=== PATIENT | female | born 1975 | race Caucasian/White ===

== ENCOUNTER 2021-12-29 12:24 | Outpatient (REF) | payer OTHER, SELFPAY ==
[2021-12-29 15:43] LABS: MANUAL DIFF FLAG NO
[2021-12-29 16:07] LABS: Basophils Percent Auto 0.4 % (0-2); Eosinophils Absolute Auto 0.1 X10*3/uL (0.0-0.4); Eosinophils Percent Auto 1.3 % (0-4); Hematocrit 37.2 % (37.0-47.0); Hemoglobin 12.4 g/dl (12.0-16.0); Imm Gran Abs Auto 0.01 X10*3/uL (0.00-0.03); Imm Gran Pct Auto 0.1 % (0.0-0.4); Lymphocytes Absolute Auto 1.7 X10*3/uL (1.2-4.9); Lymphocytes Percent Auto 23.7 % (20-40); Mean Corpuscular HGB Conc 33.3 g/dl (31.0-35.0); Mean Corpuscular Hemoglobin 30.8 pg (27.0-33.0); Mean Corpuscular Volume 92.5 fL (80.0-98.0); Monocytes Absolute Auto 0.8 X10*3/uL (0.1-1.2); Monocytes Percent Auto 11.3 % (2-11); Neutrophils Absolute Auto 4.5 x10*3/uL (2.0-8.3); Neutrophils Percent Auto 63.2 % (45-73); Platelet Count 325 X10*3/uL (160-400); Red Blood Count 4.02 X10*6/uL (4.20-5.50); Red Cell Distribution Width 12.4 % (11.0-16.0); White Blood Count 7.2 X10*3/uL (4.8-10.8)
[2021-12-29 16:51] LABS: Alanine Aminotransferase 17 U/L (0-31); Albumin Level 4.5 g/dL (3.5-5.0); Alkaline Phosphatase 63 U/L (39-117); Anion Gap 15 (12-20); Aspartate Amino Transferase 21 U/L (5-31); Bilirubin Total 0.3 mg/dL (0.0-1.0); Blood Urea Nitrogen 13 mg/dL (9-16); Calcium 9.4 mg/dL (8.4-10.2); Carbon Dioxide 25 mmol/L (22-29); Chloride 102 mmol/L (96-108); Estimated Glomerular Filt Rate > 60; Glucose Random 88 mg/dL (60-115); Potassium 4.1 mmol/L (3.3-5.1); Sodium 138 mmol/L (135-145); Total Protein 7.3 g/dL (6.5-8.0)
[2021-12-29 16:57] LABS: Vitamin D 25-OH Total 21.5 ng/mL (>30)
== END 2021-12-29 12:25 | disposition home or self-care (01) ==
LOC: HO.LAB 12:24
PROVIDERS: Absent Provider Internal Medicine; PCP Internal Medicine; Visit Provider Nurse Practitioner
DX: Z01.818 Encounter for other preprocedural examination (principal); E55.9 Vitamin D deficiency, unspecified
CPT/HCPCS: 36415; 80053; 82306; 85025

== ENCOUNTER 2022-05-05 11:50 | Day surgery (SDC) | payer OTHER, SELFPAY ==
--- NOTE | 2022-05-04 13:48 | HO.ANESPROP2 ---
Documented by User: Thea Knox NP 05/04/22 13:50 HPI - Anesthesia Eval Consult details Narrative: 46yo F for Colonoscopy PMFSH Active Problems Active Problems: All Active Problems (Updated 12/27/21 @ 14:33 by ANUM Babin) Family history of colon cancer (Acute) Pre-op examination (Acute) Mild memory disturbance (Acute) Lumbar degenerative disc disease (Acute) Hypothyroid (Acute) Past Medical History Medical History (Updated 12/27/21 @ 14:33 by ANUM Babin) Bhargavi's thyroiditis Family History Family History Paternal Grandfather Prostate cancer Brain cancer Colon cancer Paternal Grandmother Breast cancer Esophageal cancer Lung cancer Paternal Aunt Lung cancer Paternal Aunt Lung cancer Father Pancreatic cancer Esophageal cancer Lung cancer Mother Cervical cancer Surgical History Surgical History (Updated 12/27/21 @ 13:08 by ANUM Babin) H/O abdominoplasty H/O section Hx of breast reduction, elective Social History Social History Patient Tobacco Use Status: Never used Tobacco Second Hand Smoke Exposure: No Use of substances other than those prescribed or required for medical reasons: No Are you DNR?: No Advance Directives: No Advance Directives Information Provided: Yes Advance Directives on File: No Meds Allergies Allergy/AdvReac Type Severity Reaction Status Date / Time Penicillins Allergy Unknown Unknown Verified 12/27/21 12:39 Home Medications Medication Instructions Recorded Confirmed Last Taken Type levothyroxine 112 mcg capsule 112 mcg PO DAILY 12/27/21 05/05/22 Unknown History (Tirosint) Exam Exam Date and Time: May 04, 2022 1348 Pertinent Lab Results Pertinent Lab Results: Laboratory Tests 12/29/21 12/29/21 15:41 15:41 WBC 7.2 Hgb 12.4 Hct 37.2 Plt Count 325 Sodium 138 Potassium 4.1 Chloride 102 Carbon Dioxide 25 BUN 13 Creatinine 0.82 Assessment and Plan Assessment Anesthesia Assessment: Chart Reviewed Documented by User: Angelika Tobar MD 05/05/22 14:34 HPI - Anesthesia Eval Consult details Narrative: 46yo F for Colonoscopy screening fhx of coln cancer PMFSH Past Medical History Medical History (Updated 12/27/21 @ 14:33 by ANUM Babin) Bhargavi's thyroiditis Family History Family History Paternal Grandfather Prostate cancer Brain cancer Colon cancer Paternal Grandmother Breast cancer Esophageal cancer Lung cancer Paternal Aunt Lung cancer Paternal Aunt Lung cancer Father Pancreatic cancer Esophageal cancer Lung cancer Mother Cervical cancer Family history of problems with anesthesia: No Surgical History Surgical History (Updated 12/27/21 @ 13:08 by ANUM Babin) H/O abdominoplasty H/O section Hx of breast reduction, elective History of Problems with Anesthesia: No Social History Social History Patient Tobacco Use Status: Never used Tobacco Second Hand Smoke Exposure: No Use of substances other than those prescribed or required for medical reasons: No Are you DNR?: No Advance Directives: No Advance Directives Information Provided: Yes Advance Directives on File: No Meds Allergies Allergy/AdvReac Type Severity Reaction Status Date / Time Penicillins Allergy Unknown Unknown Verified 12/27/21 12:39 Home Medications Medication Instructions Recorded Confirmed Last Taken Type levothyroxine 112 mcg capsule 112 mcg PO DAILY 12/27/21 05/05/22 Unknown History (Tirosint) Exam Airway Mallampati Class: II TM Dist: >3cm Heart: rr Lungs: cta Assessment and Plan Final Anesthetic Review Family History of Problems with Anesthesia: No History of Problems with Anesthesia: No NPO: Yes ASA Class: II Final Preanesthetic Review: No Changes in Pt Med Stat, Meds/Allgs Chart Reviewed, Consent Obtained/Reviewed and Anes Risks/Benef Reviewed Patient Risk: Low Anesthetic Plan Anesthetic Plan: MAC: Disposition: Standard PACU
[2022-05-05 12:26] LABS: UPreg QC Valid YES; Urine Pregnancy NEGATIVE (NEGATIVE)
[2022-05-05 12:46] VITALS: BMI 29.8
[2022-05-05 13:07] VITALS: BP 122/68; PULSE 74; RESP 16; TEMP 37; O2SAT 97
[2022-05-05] MEDS: Lactated Ringers 1,000 ML 100 ML IVCONT (13:08)
--- NOTE | 2022-05-05 14:05 | MHC.SHP ---
Pre-Procedural Eval Section A Date of Service: 05/05/22 The patient is an INPATIENT: No The History & Physical has been completed within 30 days and I have reviewed it.: No Section B Chief Complaint: Screening, FH of malignant neoplasm of digestive Relevant Family History (Specify if Yes): Yes Relevant Social History: None Present Medications: see Short Stay Collaborative assessment Medical History: Significant History (Hypothyroid/Bhargavi thyroiditis Lumbar degenerative disc disease Family history of esophageal and colon cancer Mild memory disturbance) History of Previous Operations: Relevant previous surgery/procedure and date(s) (H/O abdominoplasty H/O section Hx of breast reduction, ) Allergies: Allergies Allergy/AdvReac Type Severity Reaction Status Date / Time Penicillins Allergy Unknown Unknown Verified 12/27/21 12:39 Review of Systems Sugical H&P ROS: Negative: Constitution, Cardiovascular, Respiratory and Gastrointestinal Exam Surgical H&P Exam: Normal: Heart, Normal: Lungs, Normal: Extremities and Normal: Abdomen Plan Diagnosis/Plan: Unchanged I have reviewed the history and physical and performed a pertinent physical examination on my patient. No changes have occurred unless specified. Time Spent With Patient Time: Total time managing care of this patient today ____ minutes.
--- NOTE | 2022-05-05 14:06 | P.BOP_ITS ---
Brief Operative Note Date of Service: 05/05/22 Pre-op diagnosis: Colon cancer screening, FH of colon cancer - paternal GF in his 70's Post-op diagnosis: other (Colon polyp, diverticulosis, hemorrhoids) Procedure: COLONOSCOPY TILL CECUM WITH BIOPSIES Surgeon: Lauren Squires MD Anesthesia: MAC Was an Diesel Engine Fitter used for this Procedure?: Yes Diesel Engine Fitter: Rosalva Rushing Estimated blood loss (mL): 0 Pathology: other (A- Cecal polyp bx) Condition: stable Disposition: PACU
--- NOTE | 2022-05-05 14:08 | W.PM.OPN ---
Operative Note Operative Note Date of Service: 05/05/22 Narrative: Pre-op diagnosis: Colon cancer screening, FH of colon cancer - paternal GF in his 70's Post-op diagnosis:?other (Colon polyp, diverticulosis, hemorrhoids) Surgeon: Lauren Squires MD Anesthesia:?MAC COLONOSCOPY TILL CECUM WITH WITH BIOPSIES Consent: Indications for the procedure and potential complications of bleeding, perforation, reaction to medications and missed diagnosis were discussed with the patient and informed consent was obtained. Instrument: Olympus PCF H 190 L variable stiffness pediatric colonoscope Monitoring: Vital signs and clinical assessment, intermittent blood pressure monitoring, continuous EKG monitoring, Pulse oximetry and Carbon Dioxide monitoring were done throughout the procedure. Colon withdrawl time was 19 minutes. Procedure: The patient was placed in the left lateral decubitis position and pre-procedure medications were administered. After a digital rectal examination of the ano-rectum, the video colonoscope was inserted into the rectum and advanced through the colon to the cecum. The colonoscope was slowly withdrawn in a retrograde panoramic fashion and the colon mucosa was carefully examined including a retroflexed view of the rectum. Findings and interventions are described below. Procedure Difficulty: Without difficulty Findings: Terminal Ileum: Not evaluated Cecum: A 2-3 mm polyp adjacent to the appendicular orifice - removed with a cold biopsy Ascending Colon: Normal Transverse Colon: Normal Descending Colon: Normal Sigmoid Colon: Moderate diverticulosis Rectum: Normal Ano-rectum: Small internal hemorrhoids Colon preparation: Excellent Impression and Post Procedure Diagnosis: Colonoscopy Findings: One tiny polyp removed Moderate diverticulosis seen in the sigmoid colon Small hemorrhoids on retroflexed exam. Plan: Await pathology results Patient has an appointment on 05/23/22 in the GI Clinic with Echo Sapp NP. Repeat Colonoscopy interval based on path results - in 5 years if polyps are adenomatous and due to FH of colon cancer. Above findings were reviewed with the patient and colon polyps and diverticulosis handouts were given in the discharge area Pt has a strong FH of multiple cancers on Dad's side of the family (pancreatic Ca in her Dad at age 59 yrs, breast cancer, brain cancer). Pt advised genetic testing. Per patient, her Dad's GI thought cancer may be related to Dad's life style (smoking and drinking rather than genetic)
--- NOTE | 2022-05-05 14:43 | HO.ANESPROP2 ---
[facility] Active Problems Active Problems: All Active Problems (Updated 12/27/21 @ 14:33 by ANUM Babin) Family history of colon cancer (Acute) Pre-op examination (Acute) Mild memory disturbance (Acute) Lumbar degenerative disc disease (Acute) Hypothyroid (Acute) Past Medical History Medical History Bhargavi's thyroiditis Family History Family History Paternal Grandfather Prostate cancer Brain cancer Colon cancer Paternal Grandmother Breast cancer Esophageal cancer Lung cancer Paternal Aunt Lung cancer Paternal Aunt Lung cancer Father Pancreatic cancer Esophageal cancer Lung cancer Mother Cervical cancer Family history of problems with anesthesia: No Surgical History Surgical History H/O abdominoplasty H/O section Hx of breast reduction, elective History of Problems with Anesthesia: No Social History Social History Patient Tobacco Use Status: Never used Tobacco Second Hand Smoke Exposure: No Use of substances other than those prescribed or required for medical reasons: No Are you DNR?: No Advance Directives: No Advance Directives Information Provided: Yes Advance Directives on File: No Meds Allergies Allergy/AdvReac Type Severity Reaction Status Date / Time Penicillins Allergy Unknown Unknown Verified 12/27/21 12:39 Active Medications: Current Medications Lactated Ringer's (Lr) 1,000 mls @ 100 mls/hr IVCONT .Q10H BECKY Last Admin: 05/05/22 13:08 Dose: 100 mls/hr Home Medications Medication Instructions Recorded Confirmed Last Taken Type levothyroxine 112 mcg capsule 112 mcg PO DAILY 12/27/21 05/05/22 Unknown History (Tirosint) Exam Exam Date and Time: May 05, 2022 1443 Height,Weight and Vital Signs: Height 5 ft 6 in Weight 83.915 kg Last Vital Signs Temp 98.6 F 05/05/22 13:07 Pulse 74 05/05/22 13:07 Resp 16 05/05/22 13:07 BP 122/68 05/05/22 13:07 Pulse Ox 97 05/05/22 13:07 O2 Del Method 05/05/22 13:07 Pertinent Lab Results Pertinent Lab Results: Laboratory Tests 05/05/22 11:55 Urine Test NEGATIVE Airway Mallampati Class: II TM Dist: >3cm Neck ROM: Full Loose/Missing/Broken Teeth: No Heart: RRR Lungs: CTA Assessment and Plan Assessment Anesthesia Assessment: Anesthesia Plan Discussed and Chart Reviewed Final Anesthetic Review Family History of Problems with Anesthesia: No History of Problems with Anesthesia: No NPO: Yes ASA Class: II Final Preanesthetic Review: Meds/Allgs Chart Reviewed, Consent Obtained/Reviewed and Anes Risks/Benef Reviewed Patient Risk: Low Procedure Risk: Low Anesthetic Plan Anesthetic Plan: MAC: Disposition: Standard PACU
--- NOTE | 2022-05-05 15:28 | HO.ANESPROP2 ---
HPI - Anesthesia Eval Consult details Narrative: screening [facility] Active Problems Active Problems: All Active Problems (Updated 12/27/21 @ 14:33 by ANUM Babin) Family history of colon cancer (Acute) Pre-op examination (Acute) Mild memory disturbance (Acute) Lumbar degenerative disc disease (Acute) Hypothyroid (Acute) Past Medical History Medical History Bhargavi's thyroiditis Family History Family History Paternal Grandfather Prostate cancer Brain cancer Colon cancer Paternal Grandmother Breast cancer Esophageal cancer Lung cancer Paternal Aunt Lung cancer Paternal Aunt Lung cancer Father Pancreatic cancer Esophageal cancer Lung cancer Mother Cervical cancer Family history of problems with anesthesia: No Surgical History Surgical History H/O abdominoplasty H/O section Hx of breast reduction, elective History of Problems with Anesthesia: No Social History Social History Patient Tobacco Use Status: Never used Tobacco Second Hand Smoke Exposure: No Use of substances other than those prescribed or required for medical reasons: No Are you DNR?: No Advance Directives: No Advance Directives Information Provided: Yes Advance Directives on File: No Meds Allergies Allergy/AdvReac Type Severity Reaction Status Date / Time Penicillins Allergy Unknown Unknown Verified 12/27/21 12:39 Active Medications: Current Medications Lactated Ringer's (Lr) 1,000 mls @ 100 mls/hr IVCONT .Q10H BECKY Last Admin: 05/05/22 13:08 Dose: 100 mls/hr Home Medications Medication Instructions Recorded Confirmed Last Taken Type levothyroxine 112 mcg capsule 112 mcg PO DAILY 12/27/21 05/05/22 Unknown History (Tirosint) Exam Exam Date and Time: May 05, 2022 1528 Height,Weight and Vital Signs: Height 5 ft 6 in Weight 83.915 kg Last Vital Signs Temp 98.6 F 05/05/22 13:07 Pulse 74 05/05/22 13:07 Resp 16 05/05/22 13:07 BP 122/68 05/05/22 13:07 Pulse Ox 97 05/05/22 13:07 O2 Del Method 05/05/22 13:07 Pertinent Lab Results Pertinent Lab Results: Laboratory Tests 05/05/22 11:55 Urine Test NEGATIVE Airway Mallampati Class: II TM Dist: >3cm Neck ROM: Full Heart: rr Lungs: cta Assessment and Plan Final Anesthetic Review Family History of Problems with Anesthesia: No History of Problems with Anesthesia: No NPO: Yes ASA Class: II Final Preanesthetic Review: No Changes in Pt Med Stat, Consent Obtained/Reviewed and Anes Risks/Benef Reviewed Patient Risk: Low Procedure Risk: Low Anesthetic Plan Anesthetic Plan: MAC: Disposition: Standard PACU
[2022-05-05 15:39] VITALS: BP 109/67; PULSE 63; RESP 16; TEMP 36.1; O2SAT 97
[2022-05-05 15:54] VITALS: BP 127/74; PULSE 66; RESP 16; TEMP 36.6; O2SAT 100
== END 2022-05-05 16:13 | disposition home or self-care (01) ==
PROVIDERS: Nurse Practitioner; PCP Internal Medicine; Visit Provider Internal Medicine Gastroenterology
PROC: 0DJD8ZZ Inspection of Lower Intestinal Tract, Via Natural or Artificial Opening Endoscopic (ICD-10-PCS; CPT 45378; principal; 2022-05-05 13:30)
DX: Z12.11 Encounter for screening for malignant neoplasm of colon (principal); Z80.0 Family history of malignant neoplasm of digestive organs; K57.30 Diverticulosis of large intestine without perforation or abscess without bleeding; K64.8 Other hemorrhoids; F06.8 Other specified mental disorders due to known physiological condition; E03.9 Hypothyroidism, unspecified; Z79.899 Other long term (current) drug therapy
CPT/HCPCS: 45380; 81025; 88305

== ENCOUNTER → 2022-05-23 12:17 | Outpatient (BNVA) | payer OTHER, SELFPAY | PROVIDERS: PCP Internal Medicine; Referring Provider Internal Medicine; Visit Provider Nurse Practitioner | DX: Z13.89 Encounter for screening for other disorder (principal) ==

== ENCOUNTER 2022-07-05 11:55 | Outpatient (REF) | payer OTHER, SELFPAY ==
[2022-07-05 17:42] LABS: Free T4 (Free Thyroxine) 1.09 ng/dL (0.71-1.85); Thyroid Stimulating Hormone 2.16 uIU/mL (0.32-4.0); Vitamin D 25-OH Total 31.5 ng/mL (>30)
== END 2022-07-05 11:56 | disposition home or self-care (01) ==
LOC: HO.LAB 11:55
PROVIDERS: PCP Internal Medicine; Visit Provider Internal Medicine
DX: R53.83 Other fatigue (principal); E55.9 Vitamin D deficiency, unspecified
CPT/HCPCS: 36415; 82306; 84439; 84443

== ENCOUNTER 2022-09-29 13:58 | Emergency (ER) | payer OTHER, SELFPAY ==
--- NOTE | ~2022-09-29 | XR_ITS ---
EXAMINATION: XR HAND, RIGHT CLINICAL INFORMATION: Question foreign body in the fourth digit. COMPARISON: None available. TECHNIQUE: PA, lateral, and oblique views of the right hand. An indicator arrow points to the fourth digit. FINDINGS: The bones and soft tissues are normal. No fracture. Alignment is anatomic. Joint spaces are maintained. No erosions or soft tissue calcifications. XR/XR hand RT 2V IMPRESSION: Unremarkable right hand.
[2022-09-29 14:01] VITALS: BP 154/87; PULSE 75; RESP 18; TEMP 37.1; O2SAT 100; BMI 29.7
--- NOTE | 2022-09-29 14:01 | ED_ITS ---
HPI - General Adult General Chief complaint: Wound/Laceration Stated complaint: Finger Lac Time Seen by Provider: 09/29/22 14:06 Source: patient Mode of arrival: ambulatory Limitations: no limitations History of Present Illness HPI narrative: Patient is a 46 year old assigned female at with a history of hypothyroidism presenting to the emergency department today with a right 4th digit laceration. Patient states that 1 week ago she was attempting to stir something in a can when her hand slipped and she cut her finger. Patient states that she can still move it but it is painful to do so. Patient denies any dizziness, lightheadedness, abdominal pain, nausea, vomiting, fever, chills, blurry vision, double vision, loss of vision, chest pain, difficulty breathing, shortness of breath, back pain, night sweats, pain with urination, increased urinary frequency, increased urinary urgency, blood in her urine or stool, syncope or a near syncopal episode, bowel incontinence, bladder incontinence, bowel retention, bladder retention, or any other complaints at this time. Onset (ago): week(s) (1) Location: right (4th finger) Radiation: non-radiation Severity: mild Severity scale (1-10): 3 Quality: dull Pain Consistency: constant Relieving factors: none Exacerbating factors: none Associated symptoms: denies other symptoms Treatments prior to arrival: none Related Data Home Medications Medication Instructions Recorded Confirmed levothyroxine 112 mcg capsule 112 mcg PO DAILY 12/27/21 05/05/22 (Tirosint) Previous Rx's Medication Instructions Recorded doxycycline hyclate 100 mg tablet 100 mg PO BID 7 days #14 tabs 09/29/22 Allergies Allergy/AdvReac Type Severity Reaction Status Date / Time Penicillins Allergy Unknown Unknown Verified 05/23/22 12:34 Review of Systems Constitutional: Constitutional: Reports no additional constitutional complaints, Denies chills, Denies fever(s) and Denies night sweats Eyes: Eyes: Reports no additional eye complaints, Denies blurry vision, Denies change in vision, Denies diplopia, Denies eye discharge, Denies loss of vision and Denies eye pain ENT: Denies dizziness Cardiovascular: Cardiovascular: Reports no additional cardiovascular complaints, Denies chest pain, Denies lightheadedness, Denies Loss of Consciousness and Denies dyspnea Respiratory: Respiratory: Reports no additional respiratory complaints and Denies dyspnea Gastrointestinal: Gastrointestinal: Reports no additional gastrointestinal complaints, Denies abdominal pain, Denies melena, Denies hematochezia, Denies change in bowel habits and Denies change in stool character Genitourinary: Genitourinary: Denies hematuria, Denies urinary frequency, Denies dysuria, Denies urinary incontinence, Denies urinary hesitancy and Denies urinary urgency Musculoskeletal: Musculoskeletal: Reports no additional musculoskeletal complaints, Denies numbness and Denies tingling Comments: laceration to the right 4th finger Neurologic: Denies dizziness, Denies loss of vision, Denies numbness and Denies tingling Psychiatric: Psychiatric: Reports no additional psychiatric complaints Endocrine: Endocrine: Reports no additional endocrine complaints Hematologic/Lymphatic: Hematologic/Lymphatic: Reports no additional hematologic/lymphatic complaints Allergic/Immunologic: Allergic/Immunologic: Reports no additional allergic/immunologic complaints PMFSH Past Medical History Attestation statement: The following information was validated with the patient. Source: old records reviewed and nursing notes reviewed Medical History Family history of colon cancer Bhargavi's thyroiditis Pre-op examination Surgical History H/O abdominoplasty H/O section Hx of breast reduction, elective Family History Family History Paternal Grandfather Prostate cancer Brain cancer Colon cancer Paternal Grandmother Breast cancer Esophageal cancer Lung cancer Paternal Aunt Lung cancer Paternal Aunt Lung cancer Father Pancreatic cancer Esophageal cancer Lung cancer Mother Cervical cancer Social History Social History Patient Tobacco Use Status: Never used Tobacco Second Hand Smoke Exposure: No Advance Directives: No Advance Directives Information Provided: No Physical Exam ED Vital Signs: Vital Signs - 24 hr 09/29/22 14:01 Temperature 98.7 F Pulse Rate 75 Respiratory Rate 18 Blood Pressure 154/87 H Pulse Oximetry 100 Oxygen Delivery Method Room Air BMI result Body Mass Index 29.7 Const General: cooperative, no acute distress, alert and awake Nutritional Appearance: well nourished Orientation/consciousness: patient oriented x3 Limitations: no limitations HENMT Head: Yes normal to inspection and Yes atraumatic Ears: hearing grossly normal bilaterally and external ears normal General nose exam: Normal external nose present, no nasal discharge noted and no epistaxis Face and sinus: Yes normal facial exam, No abrasion and No laceration Mouth: Normal oral and palatal mucosa present, no drooling and no muffled voice Eyes General: appearance normal, both eyes and all related structures Periorbital: periorbital findings normal Eyelids: Yes eyelids normal Conjunctivae: conjunctivae normal Pupils: Equal, round and reactive pupils present EOM: EOMs intact bilaterally Neck Neck: Yes normal visual inspection, Yes full ROM and Yes no lymphadenopathy Chest Chest palpation & inspection: normal inspection of the chest Resp Effort & Inspection: normal respiratory effort and able to speak in complete sentences GI Inspection: Yes normal to inspection Neuro General: patient oriented x3 and moves all extremities Cranial nerves: Yes Equal, round and reactive pupils present Cognition (Neuro): normal cognition Motor exam (neuro): 5/5 motor strength present throughout Sensory Exam: Normal double simultaneous stimulation for sensation Coordination: [id number] test normal Extrem Other: laceration to the right 4th PIP knuckle, no gaping, no active bleeding General: Yes full ROM and Yes capillary refill normal Psych Appearance: grossly normal Mental Status: mental status grossly normal Affect: normal affect Attitude: cooperative Thought process: Normal thought process present Thought content: Normal thought content present Insight: Good insight present (Psych) Course Course Course Narrative: This is a rapid medical exam: Additional HPI, ROS, PE not included below will be deferred to primary provider. Patient is a 46-year-old right hand dominant female presenting to the ED with laceration to 4th finger of right hand which happened last Sunday. Unsure if UTD on tetanus. Reports swelling to her knuckle. Unsure if FB? Plan: x-ray Medications Administered Discontinued Medications Generic Name Dose Route Start Last Admin Trade Name Freq PRN Reason Stop Dose Admin Diphtheria/Tetanus/Acell Pertussis 0.5 ml 09/29/22 14:30 09/29/22 14:42 Diphth,Pertus(Acell),Tet Adult 0.5 Ml Syringe IM 09/29/22 14:31 0.5 ml .ONCE ONE Administration Medical Decision Making Medical Decision Making MDM Narrative: Patient is a 46 year old assigned female at with a history of hypothyroidism presenting to the emergency department today with a right 4th finger injury. Patient's physical exam was as noted in the physical exam portion of this note. Patient's right hand x-ray showed no acute process. I explained my physical exam findings as well as all test results to the patient. I answered all questions asked by the patient. Patient was brought up to date on her tetanus status. I stressed the importance of the patient taking her medication as prescribed. I stressed the importance of the patient following up with her primary care provider and given her painful ROM, an orthopedic provider. I stressed the importance of the patient returning to the emergency department immediately if her symptoms were to worsen or if she were to develop any dizziness, shortness of breath, difficulty breathing, chest pain, blurry vision, loss of vision, nausea, vomiting, abdominal pain, fever, chills, back pain, or any other complaints. Patient verbalized agreement and understanding with this treatment plan and discharge. Differential Diagnosis Differential Diagnoses: The differential diagnosis associated with the presentation includes Right 4th finger laceration Right 4th finger avulsion Right 4th finger injury Right 4th finger strain Right 4th finger sprain Independent Interpretation I performed an independent interpretation of an: Plain X-Ray Interpretation: My interpretation is in agreement with the radiologist's impression of this aging study. EXAMINATION: XR HAND, RIGHT CLINICAL INFORMATION: Question foreign body in the fourth digit.? COMPARISON: None available.? TECHNIQUE: PA, lateral, and oblique views of the right hand. An indicator arrow points to the fourth digit. FINDINGS: The bones and soft tissues are normal. No fracture. Alignment is anatomic. Joint spaces are maintained. No erosions or soft tissue calcifications.? XR/XR hand RT 2V IMPRESSION: Unremarkable right hand. Dictated By: Todd Fu MD Signed By: Electronically signed by Tdod Fu MD 09/29/22 [id number] Radiology Impression Discussion of test interpretation with radiology: I have reviewed the radiologist's reading. Prescription Management I considered prescription management with: Antibiotic (patient was prescribed an antibiotic.) Chronic Conditions Patient?s care impacted by: Other (hypothyroidism) Discharge Plan Discharge Clinical Impression: Avulsion of skin Patient Disposition: Home, Self-Care Instructions: Skin Avulsion (ED) Additional Instructions: Follow up with your primary care provider. Return to the emergency department immediately if your symptoms worsen or if you develop any dizziness, shortness of breath, difficulty breathing, chest pain, blurry vision, loss of vision, nausea, vomiting, abdominal pain, fever, chills, back pain, or any other complaints. Prescriptions: New doxycycline hyclate 100 mg tablet 100 mg PO BID 7 Days Qty: 14 0RF No Action levothyroxine [Tirosint] 112 mcg capsule 112 mcg PO DAILY Referrals: [facility] [Provider Group] (Call to establish and follow up with an orthopedic provider.) Michelle Castillo MD [Primary Care Provider] - Interventions: ED Discharge Assessment Last Done: 09/29/22 15:06 Discharge Date/Time: 09/29/22 15:06 Print Language: Vietnamese
[2022-09-29] MEDS: Diphth,Pertus(ACell),Tet Adult 0.5 ML SYRINGE IM (14:42)
== END 2022-09-29 15:06 | disposition home or self-care (01) ==
PROVIDERS: Emergency Provider Emergency Medicine Emergency Medical Services; PCP Internal Medicine
DX: S61.214A Laceration without foreign body of right ring finger without damage to nail, initial encounter (principal); S60.511A Abrasion of right hand, initial encounter; W26.9XXA Contact with unspecified sharp object(s), initial encounter; Y93.9 Activity, unspecified; Y92.9 Unspecified place or not applicable; Y99.9 Unspecified external cause status; Z23 Encounter for immunization
CPT/HCPCS: 73120; 90471; 90715; 99282; 99284

== ENCOUNTER 2023-01-23 09:20 | Outpatient (REF) | payer OTHER, SELFPAY ==
--- NOTE | ~2023-01-23 | MM_ITS ---
EXAMINATION: STEREOTACTIC TOMOSYNTHESIS-GUIDED VACUUM-ASSISTED BREAST BIOPSY, LEFT SPECIMEN RADIOGRAPH, LEFT POST PROCEDURE DIGITAL MAMMOGRAM, LEFT CLINICAL INFORMATION: New calcifications lower outer left breast, middle one third. Patient has history of breast reduction surgery. COMPARISON: 01/09/2023, 12/26/2022, 06/04/2021, 03/12/2019 ([facility]) TECHNIQUE/PROCEDURE: Informed consent was obtained from the patient after discussion of the benefits, risks, and alternatives to biopsy today. Patient appeared to understand. Gave opportunity for questions. Patient signed consent form. BIOPSY TABLE: [employer] Prone Biopsy System. LESION: Calcifications. LOCAL ANESTHESIA: 5 mL 1% lidocaine; 7 mL 1% lidocaine with epinephrine. DERMATOTOMY: Single skin oh dermatotomy performed. NEEDLE: [employer] 9-gauge vacuum assisted core biopsy device. APPROACH: craniocaudal. TARGETING: Combination of digital breast tomosynthesis and stereotactic digital mammography used for targeting. CORES: 7. CLIP: [employer] Cylinder-shaped marker. SPECIMEN RADIOGRAPH: Specimen radiograph is taken in separate room using digital mammography. Several of the index calcifications are in the excised cores. POST PROCEDURE UNILATERAL DIGITAL MAMMOGRAM: The post biopsy mammogram is performed in separate room using separate digital mammography equipment from the biopsy procedure. CC and 90 degree mediolateral views are obtained. The breasts are heterogeneously dense, which may obscure small masses (breast composition category: c). The clip marker is in accurate and satisfactory position. The calcifications are markedly decreased at the biopsy site. No gross hematoma. The patient tolerated the procedure well. No immediate complications. Home instructions reviewed with the patient. Final pathology results are pending. MM/MM stereotactic biopsy LT IMPRESSION: 1. Digital tomosynthesis-guided core biopsy left breast with clip placement. 2. Specimen radiograph taken and post procedure mammogram. There is satisfactory and accurate positioning of the biopsy clip. No hematoma or complication. 3. Final pathology results pending. An addendum report will be issued.
[2023-01-23] MEDS: Lidocaine HCl 1 % 20 ML VIAL 4 ML SUBCUT (11:18)
[2023-01-23] MEDS: Sodium Bicarbonate 8.4% 50 MEQ/50 ML VIAL SUBCUT (11:19)
[2023-01-23] MEDS: Lidocaine HCl 1%/Epi 1:100,000 10 ML VIAL 18 ML SUBCUT (11:23)
== END 2023-01-23 09:21 | disposition home or self-care (01) ==
LOC: HO.MAMMO 09:20
PROVIDERS: PCP Student in an Organized Health Care Education/Training Program; Visit Provider Student in an Organized Health Care Education/Training Program
DX: R92.8 Other abnormal and inconclusive findings on diagnostic imaging of breast (principal)
CPT/HCPCS: 19081; 88305; A4648

== ENCOUNTER → 2023-01-23 10:00 | Outpatient (BNV) | payer OTHER, SELFPAY | PROVIDERS: PCP Student in an Organized Health Care Education/Training Program; Visit Provider Radiology Diagnostic Radiology | DX: R92.1 Mammographic calcification found on diagnostic imaging of breast (principal) | CPT/HCPCS: 19081 ==

== ENCOUNTER 2023-02-23 07:29 | Outpatient (REF) | payer OTHER, SELFPAY ==
[2023-02-23 08:51] LABS: Basophils Percent Auto 0.5 % (0-2); Eosinophils Absolute Auto 0.1 X10*3/uL (0.0-0.4); Eosinophils Percent Auto 0.8 % (0-4); Hematocrit 37.8 % (37.0-47.0); Hemoglobin 12.5 g/dl (12.0-16.0); Imm Gran Abs Auto 0.01 X10*3/uL (0.00-0.03); Imm Gran Pct Auto 0.2 % (0.0-0.4); Lymphocytes Absolute Auto 1.6 X10*3/uL (1.2-4.9); Lymphocytes Percent Auto 24.9 % (20-40); MANUAL DIFF FLAG NO; Mean Corpuscular HGB Conc 33.1 g/dl (31.0-35.0); Mean Corpuscular Hemoglobin 30.6 pg (27.0-33.0); Mean Corpuscular Volume 92.6 fL (80.0-98.0); Mean Platelet Volume 9.3 fL (9.4-12.3); Monocytes Absolute Auto 0.5 X10*3/uL (0.1-1.2); Monocytes Percent Auto 8.3 % (2-11); Neutrophils Absolute Auto 4.2 x10*3/uL (2.0-8.3); Neutrophils Percent Auto 65.3 % (45-73); Platelet Count 332 X10*3/uL (160-400); Red Blood Count 4.08 X10*6/uL (4.20-5.50); Red Cell Distribution Width 12.9 % (11.0-16.0); White Blood Count 6.5 X10*3/uL (4.8-10.8)
[2023-02-23 09:45] LABS: ~HepC Num1 0.15 S/CO (0.00-0.79); ~Hepatitis C Antibody Nonreactive (Nonreactive)
[2023-02-23 09:57] LABS: Anion Gap 12 (12-20); Blood Urea Nitrogen 11 mg/dL (9-16); Calcium 9.5 mg/dL (8.4-10.2); Carbon Dioxide 23 mmol/L (22-29); Chloride 106 mmol/L (96-108); Cholesterol 201 mg/dL (<200); Estimated Glomerular Filt Rate > 60; Glucose Random 96 mg/dL (60-115); HDL Cholesterol 50 mg/dL (>40); LDL Cholesterol Calculated 130 mg/dL (<100); Potassium 4.3 mmol/L (3.3-5.1); Sodium 137 mmol/L (135-145); T4 Thyroxine 10.3 ug/dL (4.5-12.0); Thyroid Stimulating Hormone 1.54 uIU/mL (0.32-4.0); Triglycerides 105 mg/dL (<150); Vitamin D 25-OH Total 28.7 ng/mL (>30)
== END 2023-02-23 07:30 | disposition home or self-care (01) ==
LOC: HO.LAB 07:29
PROVIDERS: PCP Student in an Organized Health Care Education/Training Program; Visit Provider Student in an Organized Health Care Education/Training Program
DX: Z11.59 Encounter for screening for other viral diseases (principal); E55.9 Vitamin D deficiency, unspecified; E06.3 Autoimmune thyroiditis; R53.83 Other fatigue; E78.5 Hyperlipidemia, unspecified
CPT/HCPCS: 36415; 80048; 80061; 82306; 84436; 84443; 85025; 86803

== ENCOUNTER 2023-03-09 10:09 | Outpatient (AMB) | payer OTHER, SELFPAY ==
--- NOTE | 2023-03-09 10:10 | MHC.OFFVIS ---
Intake Vital Signs 03/09/23 10:27 Height 5 ft 6 in Weight 185 lb BMI 29.9 BP 132/74 Blood Pressure Location Lt brachial Position Sitting Pulse 78 Intake Visit Reasons: ADH Intake Note: Patient is seen in office for evaluation and treatment of family history of ADH. 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 A minute focus suspicious for atypical lobular hyperplasia was noted at the tissue edge and she presents today to discuss possible wider excision. She has previously undergone bilateral breast reduction surgery in 2019 and tolerated this procedure well. She also underwent a previous needle biopsy which was benign. Family history is significant for a paternal grandmother with breast cancer x2, developed in her 60s. Her father was diagnosed with pancreatic cancer at the age of 57 and paternal grandfather was diagnosed with prostate cancer. She is 3 para 2 with 1 miscarriage. She breastfed her 1st child for short period time. She denies a history of breast infections. She currently denies any ongoing breast symptoms on either side. FOR[facility]LY [facility] Medical History Family history of colon cancer Pre-op examination Bhargavi's thyroiditis Surgical History H/O abdominoplasty Hx of breast reduction, elective H/O section Family History Paternal Grandfather Prostate cancer Brain cancer Colon cancer Paternal Grandmother Breast cancer Esophageal cancer Lung cancer Paternal Aunt Lung cancer Paternal Aunt Lung cancer Father Pancreatic cancer Esophageal cancer Lung cancer Mother Cervical cancer Social History Patient Tobacco Use Status: Never used Tobacco Second Hand Smoke Exposure: No Review of Systems Const All systems reviewed & are unremarkable except as noted in HPI and below Physical Exam Const General: cooperative and no acute distress Nutritional Appearance: well nourished Orientation/consciousness: patient oriented x3 Limitations: no limitations HEENT Head: Yes normocephalic and Yes atraumatic Ears: hearing grossly normal bilaterally Chest Other: Bilateral breast reduction surgery with well-healed incisions. Left breast: No skin change, no nipple retraction, no nipple discharge, no palpable mass, no enlarged lymph nodes. Right breast: No skin change, no nipple retraction, no nipple discharge, no palpable mass, no enlarged lymph nodes Resp Effort & Inspection: normal respiratory effort, no audible wheezes, no cough and no respiratory distress Cardio Jugular venous distension: no JVD GI Inspection: Yes normal to inspection Skin Other: Warm, dry, no rash Neuro General: patient oriented x3 Extrem General: Yes no clubbing, cyanosis or edema Assessment & Plan Assessment & Plan (1) Atypical lobular hyperplasia (ALH) of left breast: Code(s): N60.92 - Unspecified benign mammary dysplasia of left breast (2) Increased risk of breast cancer: Code(s): Z91.89 - Other specified personal risk factors, not elsewhere classified (3) Family history of pancreatic cancer: Code(s): Z80.0 - Family history of malignant neoplasm of digestive organs (4) Family history of breast cancer: Code(s): Z80.3 - Family history of malignant neoplasm of breast Plan 47-year-old female patient recently diagnosed with atypical lobular hyperplasia of the left breast noted at the margin of a recent stereotactic biopsy. I reviewed the pathology results and discussed the option of wider excision using a LOCalizer RF tag to assure complete removal. We also discussed her high risk status given the atypical lobular hyperplasia as well strong family history of breast cancer and other cancers. We discussed genetic testing which could be performed today in the office. After reviewing the procedure, risks and alternatives, she consents to the left breast lumpectomy with localizer. She also consents to genetic testing which will be performed today. She will follow-up in 6 weeks review the results. She expressed understanding and agrees with the plan. Coding Level of Care Code New Pt Level 4 (50885) Diagnoses Atypical lobular hyperplasia (ALH) of left breast N60.92 Increased risk of breast cancer Z91.89 Family history of pancreatic cancer Z80.0 Family history of breast cancer Z80.3
[2023-03-09 10:27] VITALS: BP 132/74; PULSE 78; BMI 29.9
== END 2023-03-09 10:56 | disposition home or self-care (01) ==
PROVIDERS: PCP Student in an Organized Health Care Education/Training Program; Referring Provider Student in an Organized Health Care Education/Training Program; Visit Provider Surgery
DX: N60.92 Unspecified benign mammary dysplasia of left breast (principal); Z91.89 Other specified personal risk factors, not elsewhere classified; Z80.0 Family history of malignant neoplasm of digestive organs; Z80.3 Family history of malignant neoplasm of breast
CPT/HCPCS: 99204

== ENCOUNTER → 2023-03-09 10:09 | Outpatient (BNVA) | payer OTHER, SELFPAY | PROVIDERS: PCP Student in an Organized Health Care Education/Training Program; Referring Provider Student in an Organized Health Care Education/Training Program; Visit Provider Surgery ==

== ENCOUNTER 2023-04-20 08:52 | Outpatient (AMB) | payer OTHER, SELFPAY ==
--- NOTE | 2023-04-20 08:55 | A.OFFVIS_ITS ---
Intake Vital Signs 04/20/23 08:58 Height 5 ft 6 in Weight 185 lb 6 oz BMI 29.9 BP 122/74 Blood Pressure Location Lt brachial Position Sitting Pulse 67 Intake Visit Reasons: Genetic results *HERE*/discuss surg. Intake Note: Patient is seen in office for genetic testing results. 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 She previously was evaluated for a positive left breast core biopsy performed on 01/23/2023 for calcifications. A minute focus suspicious for atypical lobular hyperplasia was noted at the tissue edge. She has previously undergone bilateral breast reduction surgery in 2019 and tolerated this procedure well. She also underwent a previous needle biopsy which was benign. Family history is significant for a paternal grandmother with breast cancer x2, developed in her 60s. Her father was diagnosed with pancre atic cancer at the age of 57 and paternal grandfather was diagnosed with prostate cancer. She is 3 para 2 with 1 miscarriage. She breastfed her 1st child for short period time. She denies a history of breast infections. She currently denies any ongoing breast symptoms on either side. 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 A copy of the report was provided to the patient. The patient's Tyrer-Cuzick remaining lifetime risk of breast cancer was calculated at 41.1% placing her well above the 20% threshold, placing her at high risk for breast cancer. She was also determined to be at increased risk for colon cancer but reports that she has previously undergone colonoscopy last year. [facility] Medical History Family history of colon cancer Pre-op examination Bhargavi's thyroiditis Surgical History H/O abdominoplasty Hx of breast reduction, elective H/O section Family History Paternal Grandfather Prostate cancer Brain cancer Colon cancer Paternal Grandmother Breast cancer Esophageal cancer Lung cancer Paternal Aunt Lung cancer Paternal Aunt Lung cancer Father Pancreatic cancer Esophageal cancer Lung cancer Mother Cervical cancer Social History Patient Tobacco Use Status: Never used Tobacco Second Hand Smoke Exposure: No Review of Systems Const All systems reviewed & are unremarkable except as noted in HPI and below Physical Exam Vital Signs: Last Vital Signs Pulse 67 04/20/23 08:58 BP 122/74 04/20/23 08:58 BMI result Body Mass Index 29.9 Const General: cooperative and no acute distress Nutritional Appearance: well nourished Orientation/consciousness: patient oriented x3 Limitations: no limitations Chest Other: Exam deferred Resp Effort & Inspection: normal respiratory effort, no audible wheezes, no cough and no respiratory distress Cardio Jugular venous distension: no JVD GI Inspection: Yes normal to inspection Skin Other: Warm, dry, no rash Neuro General: patient oriented x3 Extrem General: Yes no clubbing, cyanosis or edema Assessment & Plan Assessment & Plan (1) Family history of breast cancer: Code(s): Z80.3 - Family history of malignant neoplasm of breast (2) Increased risk of breast cancer: Code(s): Z91.89 - Other specified personal risk factors, not elsewhere classified (3) Family history of pancreatic cancer: Code(s): Z80.0 - Family history of malignant neoplasm of digestive organs Plan 47-year-old female patient presenting with high risk for breast cancer and colon cancer, returning today to review her genetic testing results. No clinically significant mutations were identified however 1 variant of uncertain significance was noted. A copy of the report was provided to the patient. Recommendations included monthly self examinations, clinical breast examination every 6 months, yearly mammography alternating with breast MRI yearly. We also reviewed her recent core biopsy which revealed atypical lobular hyperplasia. A recommendation for lumpectomy was reviewed. After a discussion of the procedure, risks, and alternatives, she consents to the left breast lumpectomy with localizer. This will be scheduled as a short-stay surgery at her earliest convenience. Following this she will be seen in consultation by Hematology/Oncology for further risk reduction strategies. MRI will be performed after the lumpectomy. Orders: Orders MR breast BI wo/w con 07/04/23 Z80.3 - Family history of malignant neoplasm of breast, Z91.89 - Other specified personal risk factors, not elsewhere classified Coding Level of Care Code Est Pt Level 4 (21967) Diagnoses Family history of breast cancer Z80.3 Increased risk of breast cancer Z91.89 Family history of pancreatic cancer Z80.0
[2023-04-20 08:58] VITALS: BP 122/74; PULSE 67; BMI 29.9
== END 2023-04-20 09:13 | disposition home or self-care (01) ==
PROVIDERS: PCP Student in an Organized Health Care Education/Training Program; Visit Provider Surgery
DX: Z80.3 Family history of malignant neoplasm of breast (principal); Z91.89 Other specified personal risk factors, not elsewhere classified; Z80.0 Family history of malignant neoplasm of digestive organs
CPT/HCPCS: 99214

== ENCOUNTER → 2023-04-20 08:52 | Outpatient (BNVA) | payer OTHER, SELFPAY | PROVIDERS: PCP Student in an Organized Health Care Education/Training Program; Visit Provider Surgery ==

== ENCOUNTER 2023-06-27 07:50 | Outpatient (REF) | payer OTHER, SELFPAY ==
--- NOTE | ~2023-06-27 | MM_ITS ---
EXAMINATION: MM MAMMOGRAM GUIDED RFID LOCALIZATION BREAST, LEFT CLINICAL INFORMATION: Findings suspicious for complex sclerosing lesion, with ALH. Left breast lower inner quadrant, middle one third. Status post stereotactic biopsy 01/23/2023. COMPARISON: Left stereotactic biopsy 01/23/2023, diagnostic left mammography 01/09/2023, bilateral screening mammography 12/26/2022. TECHNIQUE NEEDLE LOC: Proper informed consent is obtained from the patient after discussion of the procedure, potential risks and complications, and alternatives including declining the procedure today. Patient was given an opportunity for questions. The patient appeared to understand. The patient consented to the procedure and signed the consent form. GUIDANCE: Digital mammography. APPROACH: Medial to lateral. TARGET: Cylinder-shaped clip. ANESTHESIA: carbonated lidocaine 1%: 2 mL. LOCALIZATION SYSTEM: Portable [employer] LOCallizer Wire-Free Guidance System with 12g needle applicator. RADIOFREQUENCY TAG: ID # [id number] DERMATOTOMY: Single 1 mm skin-oh dermatotomy performed. RF Tag ID confirmed with LOCalizer Guidance System prior to placement. The skin is prepped and local anesthesia administered. The needle is positioned and RFID tag deployed. Final images demonstrate the LOCalizer RF tag to reside immediately adjacent to and touching the RFID clip. The patient tolerated the procedure well and had no immediate complications. Dressing placed and home instructions reviewed. MM/MM RF Tag device LT IMPRESSION: -Status post successful left breast RFID localization. -Please refer to the last 2 images (left CC and ML views) demonstrating the RFID clip in place, which are labeled appropriately, for reference in the OR.
[2023-06-27] MEDS: Lidocaine HCl 1 % 20 ML VIAL 3 ML SUBCUT (08:51)
[2023-06-27] MEDS: Sodium Bicarbonate 8.4% 50 MEQ/50 ML VIAL SUBCUT (08:52)
== END 2023-06-27 07:51 | disposition home or self-care (01) ==
LOC: HO.MAMMO 07:50
PROVIDERS: PCP Student in an Organized Health Care Education/Training Program; Visit Provider Surgery
DX: N60.92 Unspecified benign mammary dysplasia of left breast (principal)
CPT/HCPCS: 19281; C1819

== ENCOUNTER → 2023-06-27 08:00 | Outpatient (BNV) | payer OTHER, SELFPAY | PROVIDERS: PCP Student in an Organized Health Care Education/Training Program; Visit Provider Radiology Diagnostic Radiology | DX: N60.92 Unspecified benign mammary dysplasia of left breast (principal) | CPT/HCPCS: 19281 ==

== ENCOUNTER 2023-07-09 07:22 | Day surgery (SDC) | payer OTHER, SELFPAY ==
[2023-06-21 10:56] VITALS: BMI 29.9
--- NOTE | 2023-07-05 14:06 | HO.ANESPROP2 ---
Documented by User: Thea Knox NP 07/05/23 14:07 HPI - Anesthesia Eval Consult details Narrative: 47yo F for Left Breast Lumpectomy w/LOCalizer PMFSH Active Problems Active Problems: All Active Problems Family history of breast cancer (Acute) Family history of pancreatic cancer (Acute) Increased risk of breast cancer (Acute) Atypical lobular hyperplasia (ALH) of left breast (Acute) Mild memory disturbance (Acute) Lumbar degenerative disc disease (Acute) Hypothyroid (Acute) Past Medical History Medical History Family history of colon cancer Pre-op examination Bhargavi's thyroiditis Family History Family History Paternal Grandfather Prostate cancer Brain cancer Colon cancer Paternal Grandmother Breast cancer Esophageal cancer Lung cancer Paternal Aunt Lung cancer Paternal Aunt Lung cancer Father Pancreatic cancer Esophageal cancer Lung cancer Mother Cervical cancer Family history of problems with anesthesia: No Surgical History Surgical History H/O abdominoplasty Hx of breast reduction, elective H/O section History of Problems with Anesthesia: No Social History Social History Patient Tobacco Use Status: Never used Tobacco Second Hand Smoke Exposure: No Use of substances other than those prescribed or required for medical reasons: No Are you DNR?: No Advance Directives: No Advance Directives Information Provided: Yes Advance Directives on File: No Meds Allergies Allergy/AdvReac Type Severity Reaction Status Date / Time Penicillins Allergy Unknown Unknown Verified 04/20/23 09:00 Home Medications ?Medication ?Instructions ?Recorded ?Confirmed ?Last Taken ?Type levothyroxine 112 mcg capsule 112 mcg PO DAILY 12/27/21 07/09/23 07/09/23 History (Tirosint) naltrexone 8 mg-bupropion 90 mg 2 tab PO BID 03/09/23 07/09/23 Unknown History tablet,extended release (Contrave) Exam Height,Weight and Vital Signs: Height 5 ft 6 in Weight 83.915 kg Pertinent Lab Results Pertinent Lab Results: Laboratory Tests 02/23/23 02/23/23 07:36 07:48 WBC 6.5 Hgb 12.5 Hct 37.8 Plt Count 332 Sodium 137 Potassium 4.3 Chloride 106 Carbon Dioxide 23 BUN 11 Creatinine 0.83 Assessment and Plan Assessment Anesthesia Assessment: Chart Reviewed Final Anesthetic Review Family History of Problems with Anesthesia: No History of Problems with Anesthesia: No Documented by User: Cheo Rose MD 07/09/23 08:37 PMFSH Past Medical History Medical History Family history of colon cancer Pre-op examination Bhargavi's thyroiditis Family History Family History Paternal Grandfather Prostate cancer Brain cancer Colon cancer Paternal Grandmother Breast cancer Esophageal cancer Lung cancer Paternal Aunt Lung cancer Paternal Aunt Lung cancer Father Pancreatic cancer Esophageal cancer Lung cancer Mother Cervical cancer Surgical History Surgical History H/O abdominoplasty Hx of breast reduction, elective H/O section Social History Social History Patient Tobacco Use Status: Never used Tobacco Second Hand Smoke Exposure: No Use of substances other than those prescribed or required for medical reasons: No Are you DNR?: No Advance Directives: No Advance Directives Information Provided: Yes Advance Directives on File: No Meds Allergies Allergy/AdvReac Type Severity Reaction Status Date / Time Penicillins Allergy Unknown Unknown Verified 04/20/23 09:00 Home Medications ?Medication ?Instructions ?Recorded ?Confirmed ?Last Taken ?Type levothyroxine 112 mcg capsule 112 mcg PO DAILY 12/27/21 07/09/23 07/09/23 History (Tirosint) naltrexone 8 mg-bupropion 90 mg 2 tab PO BID 03/09/23 07/09/23 Unknown History tablet,extended release (Contrave) Exam Airway Mallampati Class: I TM Dist: >3cm Neck ROM: Full Loose/Missing/Broken Teeth: No Heart: rrr Lungs: cta Assessment and Plan Assessment Anesthesia Assessment: Anesthesia Plan Discussed Final Anesthetic Review NPO: Yes ASA Class: II Final Preanesthetic Review: No Changes in Pt Med Stat, Meds/Allgs Chart Reviewed, Consent Obtained/Reviewed and Anes Risks/Benef Reviewed Patient Risk: Low Procedure Risk: Low Anesthetic Plan Anesthetic Plan: GA Disposition: Standard PACU
[2023-07-09] VITALS (8 sets, daily range): BP systolic 115–123; BP diastolic 70–81; PULSE 70–84; RESP 15–16; TEMP 36.1–36.6; O2SAT 97–100; BMI 29.8
--- NOTE | ~2023-07-09 | MM_ITS ---
EXAMINATION: MM SPECIMEN X-RAY BREAST, LEFT BREAST CLINICAL INDICATION: Atypical lobular hyperplasia and calcifications, intraductal papilloma, and possibility of a complex sclerosing lesion on stereotactic biopsy left breast. COMPARISON: Localization 06/27/2023. TECHNIQUE: Single radiograph of the excised breast tissue is performed using digital mammography. FINDINGS: Specimen radiograph demonstrates the cylinder biopsy clip, the RF ID tag, and numerous calcifications within the paracentral region of the specimen. Numerous calcifications are also noted surrounding the RF ID tag and clip which appeared to possibly extend to a lateral margin. Recommend correlating with pathology result. Results were called to Dr. Brett Arechiga in the operating room at the time of imaging.
[2023-07-09 07:57] LABS: UPreg QC Valid YES; Urine Pregnancy NEGATIVE (NEGATIVE)
[2023-07-09] MEDS: Lactated Ringers 1,000 ML 100 ML IVCONT (08:09)
[2023-07-09] MEDS: vancomycin HCL 1,500 MG in 0.9 % Sodium Chloride 500 ML 333.33 MG IV (08:09)
--- NOTE | 2023-07-09 08:28 | PC.NURSE ---
Addendum entered by Efren Street RN 07/09/23 08:34: Benadryl 25mg IV given as ordered by Dr. Rose. patient states symptoms are improving. Original Note: Vancomycin IV stopped. patient c/o itchiness all over head, SOB and chest tightness. Dr. Rose anesthesiologist and Dr. Arechiga notified via [employer] App.
[2023-07-09] MEDS: diphenhydrAMINE HCL 50 MG/ML VIAL 25 MG IVPUSH (08:44)
--- NOTE | 2023-07-09 08:46 | PC.NURSE ---
No additional antibiotics at this time per Dr. Arechiga
--- NOTE | 2023-07-09 08:49 | MHC.SHP ---
Pre-Procedural Eval Section A - 24 Hr Update-Section A only Date of Service: 07/09/23 The patient is an INPATIENT: No Changes since office visit: Yes Patient answered all questions; No Cold of Flu in the past 2 weeks, No New Medical Problems and No Changes in Medication The patient has been examined within 24 hours of the surgical procedure. The History & Physical has been completed within 30 days and I have reviewed it.: No Section B - Complete if H&P > 30 days Chief Complaint: Family history of malignant neoplasm of digestive Details of Present Illness: Pain from last visit. Relevant Family History (Specify if Yes): No Relevant Social History: None Present Medications: see Short Stay Collaborative assessment Medical History: No relevant PMH History of Previous Operations: No relevant previous surgery Allergies: Allergies Allergy/AdvReac Type Severity Reaction Status Date / Time Penicillins Allergy Unknown Unknown Verified 04/20/23 09:00 Review of Systems Sugical H&P ROS: Negative: Constitution, Cardiovascular, Respiratory, Neurological, Psychiatric, Hem-Onc, Allergic/Immunologic, Gastrointestinal, Genitourinary, Musculoskeletal, Integumentary, Endocrine and Eyes/Ears/Nose/Throat Exam Surgical H&P Exam: Normal: HEENT, Normal: Heart, Normal: Lungs, Normal: Extremities, Normal: Abdomen, Normal: Skin and Normal: Neurological Plan Diagnosis/Plan: Unchanged I have reviewed the history and physical and performed a pertinent physical examination on my patient. No changes have occurred unless specified. Time Spent With Patient Time: Total time managing care of this patient today ____ minutes.
--- NOTE | 2023-07-09 10:09 | W.PM.OPN ---
Operative Note Operative Note Date of Service: 07/09/23 Narrative: Preoperative diagnosis: Atypical lobular hyperplasia left breast Postoperative diagnosis: Same Procedure: Left breast lumpectomy with localizer Surgeon: Brett Arechiga MD Stock Broker Supervisor: Paola Ohara PA-C Anesthesia: General LMA converted to ET Indications for procedure: 47-year-old female patient found to have an area of microcalcifications in the left breast at the lower inner quadrant. Subsequent stereotactic guided core biopsy revealed atypical lobular hyperplasia at the margin. She presents now for wider excision. Operative findings: Marking clip and localizer clip found within the specimen along with a cluster of microcalcifications. Specimen: Left breast lumpectomy Estimated blood loss: 2 mL Complications: None Procedure details: Patient was brought to the OR and placed in a supine position. After administering general anesthesia the patient's left breast was prepped with ChloraPrep and draped in a sterile fashion. A surgical time-out was called the consent confirmed. Patient was given a dose of vancomycin however began to have a reaction with facial swelling therefore the was was stopped and no further antibiotics were provided. Venodyne boots were in place. Local anesthesia was infiltrated in the lower inner quadrant. The localizer was used to identify the spot of the marking clip a curvilinear incision was made in a transverse fashion directly over the lowest number. Incision was carried out through subcutaneous tissue and superior and inferior skin flaps were created with electrocautery. A core of tissue surrounding the marking clip was then created using the localizer probe for confirmed the marking clip within the specimen. The specimen was removed and sent for specimen x-ray. This confirmed the marking clip and localizer clip within the specimen. This was then sent to pathology for further examination. Wounds were irrigated with saline solution and checked for hemostasis. Hemostasis was assured using electrocautery. Deep breast tissue was then reapproximated using interrupted 3-0 Polysorb sutures. Dermis was reapproximated using interrupted 3-0 Polysorb sutures. Skin was closed using a running subcuticular 4-0 Polysorb suture. Steri-Strips, 2 x 2 gauze and Tegaderm were then applied. The patient tolerated the procedure well. Sponge, instrument, and needle counts reported as correct. The patient was transferred to PACU in stable condition.
== END 2023-07-09 11:52 | disposition home or self-care (01) ==
PROVIDERS: Nurse Practitioner; PCP Student in an Organized Health Care Education/Training Program; Visit Provider Surgery
PROC: (CPT 19301; principal; 2023-07-09 09:00)
DX: N60.82 Other benign mammary dysplasias of left breast (principal); Z80.0 Family history of malignant neoplasm of digestive organs; Z80.3 Family history of malignant neoplasm of breast; Z91.89 Other specified personal risk factors, not elsewhere classified; E06.3 Autoimmune thyroiditis; Z79.899 Other long term (current) drug therapy; Z88.0 Allergy status to penicillin; Z98.890 Other specified postprocedural states
CPT/HCPCS: 19301; 81025; 88307; 88329; J0131; J0330; J1100; J1200; J1596; J2250; J2405; J2704; J2795; J3010; J3371

== ENCOUNTER → 2023-07-09 07:22 | Outpatient (BNV) | payer OTHER, SELFPAY | PROVIDERS: PCP Student in an Organized Health Care Education/Training Program; Visit Provider Surgery | DX: N60.82 Other benign mammary dysplasias of left breast (principal) | CPT/HCPCS: 19301 ==

== ENCOUNTER 2023-07-19 08:50 | Outpatient (AMB) | payer OTHER, SELFPAY ==
--- NOTE | 2023-07-19 08:54 | A.OFFVIS_ITS ---
Vital Signs 07/19/23 08:59 Height 5 ft 6 in Weight 187 lb BMI 30.2 BP 128/71 Blood Pressure Location Lt brachial Position Sitting Pulse 78 Intake Visit Reasons: S/p left brst lumpectomy w/ localizer Intake Note: Patient is seen in office for post op assessment post left breast lumpectomy. Pt c/o: denies any concerns post surgery Recovery Operator Required: No Environmental Protection Specialist: Environmental Protection Specialist Present Accompanied by: Self / Same As Patient Allergies Penicillins Allergy (Severe, Verified 07/19/23 08:59) Hives vancomycin Allergy (Severe, Verified 07/19/23 08:59) Anaphylaxis HPI Comments Details: 47-year-old female patient returning following left breast lumpectomy. This did reveal residual lobular carcinoma in-situ with negative margins. She tolerated the procedure well and denies any ongoing symptoms. She previously was evaluated for a positive left breast core biopsy performed on 01/23/2023 for calcifications. A minute focus suspicious for atypical lobular hyperplasia was noted at the tissue edge. She has previously undergone bilateral breast reduction surgery in 2019 and tolerated this procedure well. She also underwent a previous needle biopsy which was benign. Family history is significant for a paternal grandmother with breast cancer x2, developed in her 60s. Her father was diagnosed with pancreatic cancer at the age of 57 and paternal grandfather was diagnosed with prostate cancer. She is 3 para 2 with 1 miscarriage. She breastfed her 1st child for short period time. She denies a history of breast infections. She currently denies any ongoing breast symptoms on either side. 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 A copy of the report was provided to the patient. The patient's Tyrer-zick remaining lifetime risk of breast cancer was calculated at 41.1% placing her well above the 20% threshold, placing her at high risk for breast cancer. She was also determined to be at increased risk for colon cancer but reports that she has previously undergone colonoscopy last year. [facility] Medical History Family history of colon cancer Pre-op examination Bhargavi's thyroiditis Surgical History History of lumpectomy of left breast (07/09/23) H/O abdominoplasty Hx of breast reduction, elective H/O section Family History Paternal Grandfather Prostate cancer Brain cancer Colon cancer Paternal Grandmother Breast cancer Esophageal cancer Lung cancer Paternal Aunt Lung cancer Paternal Aunt Lung cancer Father Pancreatic cancer Esophageal cancer Lung cancer Mother Cervical cancer Social History Patient Tobacco Use Status: Never used Tobacco Second Hand Smoke Exposure: No Physical Exam Vital Signs: Last Vital Signs Pulse 78 07/19/23 08:59 BP 128/71 07/19/23 08:59 BMI result Body Mass Index 30.2 Const General: cooperative and no acute distress Nutritional Appearance: well nourished Orientation/consciousness: patient oriented x3 Limitations: no limitations Chest Other: Exam deferred Resp Effort & Inspection: normal respiratory effort, no audible wheezes, no cough and no respiratory distress Cardio Jugular venous distension: no JVD GI Inspection: Yes normal to inspection Skin Other: Warm, dry, no rash Neuro General: patient oriented x3 Extrem General: Yes no clubbing, cyanosis or edema Assessment & Plan Assessment & Plan (1) Family history of breast cancer: Code(s): Z80.3 - Family history of malignant neoplasm of breast Category: Medical (2) Family history of pancreatic cancer: Code(s): Z80.0 - Family history of malignant neoplasm of digestive organs Category: Medical (3) Atypical lobular hyperplasia (ALH) of left breast: Code(s): N60.92 - Unspecified benign mammary dysplasia of left breast Category: Medical (4) Increased risk of breast cancer: Code(s): Z91.89 - Other specified personal risk factors, not elsewhere classified Category: Medical Plan 47-year-old female patient determined to be at high risk for breast cancer and colon cancer, following a left breast lumpectomy for lobular carcinoma in-situ. Genetic testing revealed no clinically significant mutations identified however 1 variant of uncertain significance was noted. Recommendations included monthly self examinations, clinical breast examination every 6 months, yearly mammography alternating with breast MRI yearly. She underwent lumpectomy proximally 1 week ago and tolerated the procedure well. She will be referred to Hematology Oncology for risk reduction strategy. She will schedule her breast MRI at her earliest convenience in approximately 1 month. She will follow-up for routine breast examination in 6 months but is welcome to call sooner for any new concerns. Orders: Referrals Hematology & Oncology Referral N60.92 - Unspecified benign mammary dysplasia of left breast, Z80.0 - Family history of malignant neoplasm of digestive organs, Z80.3 - Family history of malignant neoplasm of breast Coding Level of Care Code Global (73302) Diagnoses Family history of breast cancer Z80.3 Family history of pancreatic cancer Z80.0 Atypical lobular hyperplasia (ALH) of left breast N60.92 Increased risk of breast cancer Z91.89
[2023-07-19 08:59] VITALS: BP 128/71; PULSE 78; BMI 30.2
== END 2023-07-19 09:10 | disposition home or self-care (01) ==
PROVIDERS: PCP Student in an Organized Health Care Education/Training Program; Visit Provider Surgery
DX: Z80.3 Family history of malignant neoplasm of breast (principal); Z80.0 Family history of malignant neoplasm of digestive organs; N60.92 Unspecified benign mammary dysplasia of left breast; Z91.89 Other specified personal risk factors, not elsewhere classified
CPT/HCPCS: 99024

== ENCOUNTER → 2023-07-19 08:50 | Outpatient (BNVA) | payer OTHER, SELFPAY | PROVIDERS: PCP Student in an Organized Health Care Education/Training Program; Visit Provider Surgery ==

== ENCOUNTER 2023-07-31 12:10 | Outpatient (AMB) | payer OTHER, SELFPAY ==
[2023-07-31 12:22] VITALS: BP 122/70; PULSE 80; TEMP 36.4; O2SAT 98; BMI 30.5
--- NOTE | 2023-07-31 12:22 | MHC.OFFWIV ---
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 Pt has a splinter in the pulp space of the fourth digit of the right hand. Lodged in for a few days. [facility] Medical History Family history of colon cancer Pre-op examination Bhargavi's thyroiditis Surgical History History of lumpectomy of left breast (07/09/23) H/O abdominoplasty Hx of breast reduction, elective H/O section Family History Paternal Grandfather Prostate cancer Brain cancer Colon cancer Paternal Grandmother Breast cancer Esophageal cancer Lung cancer Paternal Aunt Lung cancer Paternal Aunt Lung cancer Father Pancreatic cancer Esophageal cancer Lung cancer Mother Cervical cancer Social History Patient Tobacco Use Status: Never used Tobacco Second Hand Smoke Exposure: No Physical Exam Vital Signs: Last Vital Signs Temp 97.6 F 07/31/23 12:22 Pulse 80 07/31/23 12:22 BP 122/70 07/31/23 12:22 Pulse Ox 98 07/31/23 12:22 Oxygen Delivery Method Room Air 07/31/23 12:22 BMI result Body Mass Index 30.5 Extrem Other: Right hand: fourth digit: Pulp space: Tiny sliver ( Office Procedures Foreign Body Removal Details: Area of the wound was cleaned. Instead of xylocaine, a small quantity of 60 mg/2ml toradol was injected around the sliver. Quantity was less than 0.1 cc. Pt felt an immediate burning sensation. The procedure was stopped. Pt will be monitored for 30 minutes. 60512-[id number] body removal, simple Procedure code (CPT) selection complete Assessment & Plan Assessment & Plan (1) Foreign body of finger of right hand: Code(s): S60.459A - Superficial foreign body of unspecified finger, initial encounter Plan: Instead of xylocaine, toradol was injected in the wound. Less than 0.1 cc was injected. Pt was informed of the same. She was observed for 30 minutes and discharged. The burning sensation has subsided at the time of discharge. I decided not to probe the wound further. There is no billing for this visit. Orders: Orders AMB Removal of foreign body Today S60.459A - Superficial foreign body of unspecified finger, initial encounter Coding Level of Care Code Est Pt Level 1 (05380) Diagnoses Foreign body of finger of right hand S60.459A CPT Codes Details - Foreign body simple: 61770-[id number] body removal, simple ([id number])
== END 2023-07-31 13:33 | disposition home or self-care (01) ==
PROVIDERS: PCP Student in an Organized Health Care Education/Training Program; Visit Provider Internal Medicine
DX: S60.459A Superficial foreign body of unspecified finger, initial encounter (principal)
CPT/HCPCS: 99499

== ENCOUNTER → 2023-08-01 13:58 | Outpatient (BNVA) | payer OTHER, SELFPAY | PROVIDERS: PCP Student in an Organized Health Care Education/Training Program; Visit Provider Physician Assistant | DX: Z13.89 Encounter for screening for other disorder (principal) | CPT/HCPCS: 10120; 99204 ==

== ENCOUNTER 2023-08-14 14:13 | Outpatient (REF) | payer OTHER, SELFPAY ==
--- NOTE | ~2023-08-14 | MR_ITS ---
EXAMINATION: MR BREAST WITHOUT AND WITH CONTRAST, BILATERAL CLINICAL INFORMATION: High risk screening. Family history of breast cancer. History of atypical lobular hyperplasia status post excision. COMPARISON: No previous breast MRI TECHNIQUE: Imaging was performed with a dedicated breast coil. Prior to the administration of contrast, bilateral axial T1 and bilateral axial T2 weighted sequences were obtained. After the uneventful administration of?8.5 mL of Gadavist, dynamic contrast-enhanced VIBRANT series through the breasts in the axial plane were performed. Subtracted images were performed and reviewed. A delayed sagittal sequence through both breasts was acquired. Additionally, CAD post-processing, including maximum intensity projections, 3-D reconstructions and kinetic analysis, were performed an independent workstation and reviewed by the interpreting radiologist is a portion of this exam. FINDINGS: The patient's fibroglandular tissue demonstrates moderate background enhancement. LEFT BREAST: There are postsurgical changes in the lower inner quadrant of the left breast at the site of recent excision. There is mild associated low level nonmass enhancement compatible with postsurgical change. No suspicious masslike or non-masslike enhancement. No abnormal skin thickening or nipple retraction. No abnormal architectural distortion. Review of the T2 weighted images demonstrates no fibrocystic changes or dilated ducts. Review of kinetic images reveals no additional findings. RIGHT BREAST: No suspicious masslike or non-masslike enhancement. No abnormal skin thickening or nipple retraction. No abnormal architectural distortion. Review of the T2 weighted images demonstrates no fibrocystic changes or dilated ducts. Review of kinetic images reveals no additional findings. There is no suspicious internal mammary chain or axillary adenopathy. Limited views of the chest and abdomen are unremarkable. MR/MR breast BI wo/w con IMPRESSION: No MR specific evidence of malignancy. ASSESSMENT: LEFT BREAST: BI-RADS 2 - Benign Findings. RIGHT BREAST: BI-RADS 1-Negative RECOMMENDATIONS: Clinical follow-up. Continued annual mammographic surveillance. Further breast MRI as risk factors dictate.
[2023-08-14] MEDS: gadobutroL 10 ML VIAL IVPUSH (15:27)
== END 2023-08-14 14:14 | disposition home or self-care (01) ==
LOC: HO.MRI 14:13
PROVIDERS: PCP Student in an Organized Health Care Education/Training Program; Visit Provider Surgery
DX: Z12.39 Encounter for other screening for malignant neoplasm of breast (principal); Z80.3 Family history of malignant neoplasm of breast; Z91.89 Other specified personal risk factors, not elsewhere classified
CPT/HCPCS: 77049; A9585

== ENCOUNTER 2023-09-10 10:58 | Outpatient (REF) | payer OTHER, SELFPAY ==
[2023-09-10 15:11] LABS: Alanine Aminotransferase 19 U/L (0-31); Albumin Level 4.3 g/dL (3.5-5.0); Alkaline Phosphatase 66 U/L (39-117); Anion Gap 11 (12-20); Aspartate Amino Transferase 21 U/L (5-31); Bilirubin Direct 0.1 mg/dL (0.0-0.5); Bilirubin Total 0.5 mg/dL (0.0-1.0); Blood Urea Nitrogen 12 mg/dL (9-16); Calcium 9.2 mg/dL (8.4-10.2); Carbon Dioxide 26 mmol/L (22-29); Chloride 106 mmol/L (96-108); Estimated Glomerular Filt Rate > 60; Glucose Random 94 mg/dL (60-115); Potassium 3.6 mmol/L (3.3-5.1); Sodium 139 mmol/L (135-145); Total Protein 7.4 g/dL (6.5-8.0)
== END 2023-09-10 10:59 | disposition home or self-care (01) ==
LOC: HO.LAB 10:58
PROVIDERS: PCP Student in an Organized Health Care Education/Training Program; Visit Provider Student in an Organized Health Care Education/Training Program
DX: F32.9 Major depressive disorder, single episode, unspecified (principal)
CPT/HCPCS: 36415; 80048; 80076

== ENCOUNTER → 2023-09-11 13:09 | Outpatient (BNV) | payer OTHER, SELFPAY | PROVIDERS: Referring Provider Surgery; Visit Provider Internal Medicine Medical Oncology | DX: N60.82 Other benign mammary dysplasias of left breast (principal) | CPT/HCPCS: 99204 ==

== ENCOUNTER 2023-10-20 09:32 | Emergency (ER) | payer OTHER, SELFPAY ==
--- NOTE | ~2023-10-20 | US_ITS ---
EXAMINATION: US VENOUS ULTRASOUND WITH DOPPLER LOWER EXTREMITY, LEFT CLINICAL INFORMATION: Pain COMPARISON: None available. TECHNIQUE: Ultrasound of the deep veins is performed from the hip to the calf with compression sonography and color and pulse Doppler assessment. Spectral analysis with color-flow imaging is performed. FINDINGS: There is normal venous compression and respiratory variation and augmented flow. The visualized common femoral vein, superficial femoral vein, profunda femoral vein, popliteal vein, and the trifurcation region shows no evidence of deep venous thrombosis. There is no significant popliteal fossa cyst. If the patient's symptoms persist, followup ultrasound in 5 days 7 days might be of value to exclude proximal propagation from a non-visualized calf vein. US/US venous duplex LE LT IMPRESSION: No DVT demonstrated in the left lower extremity.
[2023-10-20 09:44] VITALS: BP 131/72; PULSE 68; RESP 16; TEMP 36.7; O2SAT 95
--- NOTE | 2023-10-20 09:52 | ED.GENADULT ---
HPI - General Adult General Chief complaint: Extremity Injury, Lower Stated complaint: l lower leg quest DVT Time Seen by Provider: 10/20/23 09:51 Source: patient and RN notes reviewed Mode of arrival: ambulatory Limitations: no limitations History of Present Illness ED Provider: Janice Bowling PA-C [facility] narrative: This is a 48-year-old female, with a history of Bhargavi's thyroiditis and atypical lobular hyperplasia of the breast with lumpectomy in July 2023, who presents emergency department with complaints of left calf cramping since Sunday. Patient states that her symptoms have been intermittent, states that her symptoms worsen throughout the day. She also notices some swelling to her lower extremity. She states that about 1 month ago she started on tamoxifen in his concerned that this may be a blood clot. She denies any chest pain or shortness for breath. No history of blood clots in the past. No recent travel, surgeries or hospitalizations. No other complaints or concerns at this time. MD complaint: Left calf pain Onset (ago): day(s) Location: lower extremity Radiation: non-radiation Relieving factors: none Exacerbating factors: none Associated symptoms: denies other symptoms Treatments prior to arrival: none Related Data Home Medications ?Medication ?Instructions ?Recorded ?Confirmed levothyroxine 112 mcg capsule 112 mcg PO DAILY 12/27/21 09/11/23 (Tirosint) fluoxetine 10 mg capsule 10 mg PO DAILY 09/11/23 09/11/23 Allergies Allergy/AdvReac Type Severity Reaction Status Date / Time Penicillins Allergy Severe Hives Verified 10/20/23 09:47 vancomycin Allergy Severe Anaphylaxis Verified 10/20/23 09:47 Review of Systems Review of Systems: Yes all other systems are reviewed and are negative Constitutional: Constitutional: Reports as per [facility] Past Medical History Attestation statement: The following information was validated with the patient. Medical History Family history of colon cancer Pre-op examination Bhargavi's thyroiditis Surgical History History of lumpectomy of left breast (07/09/23) H/O abdominoplasty Hx of breast reduction, elective H/O section Family History Family History Paternal Grandfather Prostate cancer Brain cancer Colon cancer Paternal Grandmother Breast cancer Esophageal cancer Lung cancer Paternal Aunt Lung cancer Paternal Aunt Lung cancer Father Pancreatic cancer Esophageal cancer Lung cancer Mother Cervical cancer Social History Social History Household Members: Spouse and Family Patient Tobacco Use Status: Never used Tobacco Second Hand Smoke Exposure: No Advance Directives: No Advance Directives Information Provided: No Do you have a plan to hurt others: No Plan service: Yes Current occupational status: employed Physical Exam ED Vital Signs: Vital Signs - 24 hr 10/20/23 09:44 Temperature 98.0 F Pulse Rate 68 Respiratory Rate 16 Blood Pressure 131/72 Pulse Oximetry 95 Oxygen Delivery Method Room Air BMI result Body Mass Index 30.0 Const General: cooperative, comfortable and no acute distress Orientation/consciousness: patient oriented x3 Limitations: no limitations HENMT Head: Yes normal to inspection, Yes normocephalic and Yes atraumatic Ears: hearing grossly normal bilaterally General nose exam: Normal external nose present Face and sinus: Yes normal facial exam Mouth: Normal oral and palatal mucosa present, oropharynx normal and moist mucous membranes Throat: Yes posterior oropharynx normal Eyes General: appearance normal, both eyes and all related structures Eyelids: Yes eyelids normal Conjunctivae: conjunctivae normal Sclerae: sclerae normal Pupils: Equal, round and reactive pupils present EOM: EOMs intact bilaterally Neck Neck: Yes normal visual inspection, Yes full ROM and Yes no lymphadenopathy Lymphatic: no lymphadenopathy noted Chest Chest palpation & inspection: normal inspection of the chest Resp Effort & Inspection: normal respiratory effort and able to speak in complete sentences Auscultation: clear to auscultation bilaterally, no crackles, no rales, no rhonchi and no wheezes Cardio Rate: regular rate Rhythm: regular rhythm Heart sounds: S1 normal heart sound present and S2 normal heart sound present GI Inspection: Yes normal to inspection Skin General skin exam: no rashes or lesions noted Trauma: no lacerations or abrasions Wounds: no wounds Neuro General: patient oriented x3 and moves all extremities Cranial nerves: Yes Equal, round and reactive pupils present Extrem Other: Left calf, with no obvious swelling or masses. Negative Homans, strong DP pulse no overlying skin changes or warmth. General: Yes normal to inspection Right upper extremity: normal to inspection Left upper extremity: normal to inspection Right lower extremity: normal to inspection Left lower extremity: normal to inspection Course Reevaluation(s) Reevaluation #1: Ultrasound returns, no DVT seen. Discussed findings with patient. Patient stable for discharge, given return precautions. Time: 11:22 Medical Decision Making Medical Decision Making [facility] Narrative: This is a 48-year-old female who presents emergency department with complaints of left calf pain x3 days. Arrival, vital signs within normal limits. Physical exam benign however given recent start of tamoxifen, as well as history history of atypical lobular hyperplasia, will obtain ultrasound to rule out DVT. She has no chest pain or shortness for breath to suggest pulmonary embolism. Differential Diagnosis Differential Diagnoses: The differential diagnosis associated with the presentation includes Muscle strain sprain, DVT, contusion compartment syndrome-unlikely Radiology Impression Discussion of test interpretation with radiology: I have reviewed the radiologist's reading. Radiologist Impression: US/US venous duplex LE LT IMPRESSION: No DVT demonstrated in the left lower extremity. Dictated By: Tameka Marinelli MD Discharge Plan Discharge Clinical Impression: Pain of left calf Patient Disposition: Home, Self-Care Instructions: Leg Pain (ED) Additional Instructions: You were seen in the emergency department due to left calf pain. Your ultrasound did not show a blood clot. If you continue to have symptoms, please have follow-up ultrasound in 5-7 days. Drink plenty of fluids get plenty of rest. Gentle stretching and massage can also help. If any new or worsening symptoms occur including but not limited to worsening pain, chest pain, shortness of breath, please return for re-evaluation. Prescriptions: No Action fluoxetine 10 mg capsule 10 mg PO DAILY levothyroxine [Tirosint] 112 mcg capsule 112 mcg PO DAILY Print Language: [place]
[2023-10-20 11:33] VITALS: BP 131/72; PULSE 68; RESP 16; TEMP 36.7; O2SAT 95
== END 2023-10-20 11:34 | disposition home or self-care (01) ==
PROVIDERS: Emergency Provider Emergency Medicine; PCP Student in an Organized Health Care Education/Training Program
DX: M79.605 Pain in left leg (principal)
CPT/HCPCS: 93971; 99283; 99284

== ENCOUNTER 2023-12-03 13:12 | Outpatient (REF) | payer OTHER, SELFPAY ==
--- NOTE | ~2023-12-03 | US_ITS ---
EXAMINATION: US PELVIS CLINICAL INFORMATION: Leiomyoma, last menstrual period November 15, 2023. COMPARISON: None available. TECHNIQUE: Ultrasound of the pelvis is performed using both transabdominal and transvaginal transducers along with Doppler. Transvaginal imaging is performed due to inadequate visualization transabdominally. FINDINGS: Uterus measures 12.9 x 6.0 x 8.0 cm. A 0.9 x 0.9 x 0.8 cm uterine lesion characteristic of a fibroid. Endometrial thickness is 10 mm. No significant free fluid. A 0.8 x 0.8 x 0.4 cm echogenic lesion within the endometrium is concerning for a polyp. Left ovary measures 2.8 x 1.5 x 1.6 cm, volume 3.5 mL and is unremarkable. Right ovary measures 4.8 x 2.1 x 3.2 cm, volume 16.9 mL. A 2.9 x 1.7 x 2.4 cm right ovarian cyst. There is a specific indication for additional imaging at this time. US/US pelvic and transvaginal IMPRESSION: 1. A 0.9 cm uterine lesion characteristic of a fibroid. 2. A 0.8 cm echogenic lesion within the endometrium is concerning for a polyp. Gynecologic consultation recommended to determine further management including possible biopsy and additional imaging including follow-up ultrasound in 4-6 weeks. 3. A 2.9 cm right ovarian cyst. There is no specific indication for additional imaging at this time. Management of Adnexal Lesions (newly detected incidentally on US in asymptomatic* non females) Cyst Size Reproductive Age Female * < 3 cm: No follow-up. Normal physiology. At your discretion, may not need to be described in the report. * > 3 to 5 cm: No follow-up. Describe in report and include almost certainly benign . * > 5 to 7 cm: Yearly follow-up. Describe in report and include almost certainly benign . * > 7 cm: Further evaluation with MR or surgery should be considered since these may be difficult to assess completely with US. Cyst Size Postmenopausal Female * < 1 cm: No follow-up. Clinically inconsequential. At your discretion, may not need to be described in the report. * > 1 to 7 cm: Describe and include almost certainly benign and recommend yearly follow-up, * at least initially, with US. * > 7 cm: Further imaging with MR or surgery. Length of follow-up: No consensus was reached regarding how long a lesion must be followed to demonstrate its stability. Cystic ovarian neoplasms generally grow very slowly. These recommendations may be helpful in symptomatic women as well, but the clinical setting will often determine management in a manner beyond the scope of these recommendations. Reference: Gema et. al. Management of Asymptomatic Ovarian and Other Adnexal Cysts Imaged at US, Society of Radiologists in Ultrasound Consensus Statement, Ultrasound Quarterly 2010;26:121-131. Electronically signed by: Prisca Jaramillo MD 01/02/2024 10:16 AM EDT
== END 2023-12-03 13:13 | disposition home or self-care (01) ==
LOC: HO.US 13:12
PROVIDERS: PCP Student in an Organized Health Care Education/Training Program; Visit Provider Obstetrics & Gynecology
DX: D25.9 Leiomyoma of uterus, unspecified (principal)
CPT/HCPCS: 76830; 76856

== ENCOUNTER 2024-02-19 15:53 | Outpatient (REF) | payer OTHER, SELFPAY ==
--- OUTSIDE RECORDS SUMMARY | 2024-02-19 15:56 | XMS_ITS | Continuity of Care Document ---
Author Organization [facility] Address [address] [place] [address]- Care Team Providers Care Plier Worker Name Role Phone Ayana BORDEN, Amber Primary Care Physician Encounter [facility] Date(s): 01/03/24 - 02/02/24 [facility] [address] [place] [address]- Encounter Type: Triage Allergies, Adverse Reactions, Alerts Substance Criticality Severity Reaction Reaction Severity Status vancomycin Active Other Food Allergy cat fish- vomiting Active penicillins severe hives Activ e Medications Fluoxetine By Mouth, 0 Refills, Maintenance, 09/28/23 8:41:00 AM EDT, Partial fill upon patient request if the prescription is for a schedule II opioid drug. Start Date: 09/28/23 Status: Ordered Repeat number: 1 Patient's Own Meds iron 65mg, By Mouth, Daily, Maintenance, 04/24/19 4:19:00 PM EST Start Date: 04/24/19 Status: Ordered Repeat number: 1 tamoxifen 20 mg oral tablet 1 tablet = 20 mg, By Mouth, Daily, # 90 tablet, 3 Refills, Maintenance, 09/28/23 9:00:00 AM EDT, Tablet, [facility], 168, cm, 09/28/23 8:39:00 EDT, Height Start Date: 09/28/23 Status: Ordered Quantity: 90.0 Unit: tablet Repeat number: 4 Tirosint 112 mcg (0.112 mg) oral capsule 1 capsule = 112 mcg, By Mouth, Daily, # 90 capsule, 3 Refills, Maintenance, 12/05/18 8:02:34 AM EDT,Capsule, [facility] Start Date: 12/05/18 Status: Ordered Quantity: 90.0 Unit: capsule Repeat number: 4 Problem List Condition Confirmation Course Effective Dates Status Health [facility] Informant Atypical lobular hyperplasia (ALH) of left breast Confirmed Active Family history of breast cancer Confirmed Active Dense breast tissue on mammogram Confirmed Active Obese class I Confirmed Active Social History Social History Type Response Smoking Status Never (less than 100 in lifetime) entered on: 02/14/23 Sex Sex Representation Female (finding) Patient Care team information Care Team Personnel Name: Amber Piña MD Position: Reference Physician Member Role: PCP Address: [address] [place] [address] Telecom: Care Team Related Persons Name: GREGG HILARIO Insurance Providers Guarantor name: ANN HILARIO Health Plan Information #: 1 Payer: [employer] PPO Member Number: NA Policy Number: NA Group Number: NA
--- OUTSIDE RECORDS SUMMARY | 2024-02-19 15:56 | XMS_ITS | Data Portability ---
Author Organization [facility], Main Office Address [address] [facility] [address] [place] [address] Care Team Providers Care Unit Director Name Role Phone ALICEISAI CHAD Referring Provider [phone] [facility] Sleep Medi cine CEASAR CHOUDHARY Plastic/Reconstructive Surgeon KHAI JOYCE Sports Medicine EDITH HINOJOSA Chief Meteorologist [phone] AMBER PIÑA Primary Care Provider LULU MORALES Referring Provider Assessment Encounter Date Assessment Date Assessment LastModified by Organization Details LastModified Time 09/05/2023 09/05/2023 Discussed with patient the signs/symptom s warranted for a return to office visit and/or an ER visit. Patient understood and agreed with the plan. Not available 09/05/2023 14:10:44 11/07/2023 11/07/2023 Discussed with patient the signs/symptom s warranted for a return to office visit and/or an ER visit. Patient understood and agreed with the plan. Not available 11/07/2023 13:25:57 Plan of Treatment Reminders Order Date Submit Date Provider Last Modified By Organization Details Last Modified Time Details Appointments PE EST 2024 01:45P Veronica PIÑA MD Not available Not available Not available Lab lipid panel, blood 2022 023 [facility], [address] [place] [address], [place], [address], 02/23/2023 11:09:25 BMP, serum or plasma [address] [facility], [address] [place] [address], [address], 02/20/2023 16:08:27 CBC w/ auto diff [address] [facility], [address] [place] [address], [address], 02/20/2023 16:08:27 TSH, serum or plasma [address] [facility], [address] [place] [address], [address], 02/20/2023 16:08:27 T4, free, serum 2022 023 [facility], [address] [place] [address], [address], 09/18/2023 10:27:55 vitami n D, 25-hyd [place], total, serum [address] [facility], [address] [place] [address], [id number], 02/20/2023 16:08:26 hepati tis C virus Ab, serum [address] [facility], [address] [place] [address], [address], 02/20/2023 16:08:27 BMP, serum or plasma 2023 024 [facility], [address] [place] [address], [address], 09/18/2023 14:23:17 hepati c functi on panel, serum 2023 024 [facility], [address] [place] [address], [address], 09/18/2023 14:23:17 Referral breast surger y referr al - for remova l of calcif icatio n 2022 023 jeffery Arechiga MD, [address] [place] [address] Iván [place], [address], 03/26/2023 14:47:48 Procedures None record ed. Surgeries None record ed. Imaging None record ed. Medication Orders Contra ve 8 mg-90 mg tablet ,exten ded releas e 2022 023 amelia madison [facility], [address] [place] [address], [address], 06/13/2023 11:02:29 polymy matthew B sulfat e 10,000 unit-t rimeth oprim 1 mg/mL eye drops 2023 024 [id number], [address] [place], [address], 09/05/2023 14:06:30 fluoxe amanda 10 mg capsul e 2023 024 [id number], [address] [place], [address], 11/07/2023 13:47:56 escita lopram 10 mg tablet 2023 024 [facility], [address] [place] [address], [address], 11/07/2023 13:47:25 Patient TargetsNo targets recorded. Patient Instructions Encounter Date Encounter Id Patient Instructions Last Modified By Organization Details Last Modified Time 02/20/2023 [id number] Well Visit, Ages 18 to 65: Care Instructions Not available 02/20/2023 16:08:26 medical record request* [email or web address] Not available 02/21/2023 15:52:54 elin's thyroiditis: care instructions Not available 02/20/2023 16:08:26 starting a weigh t loss plan: care instructions Not available 02/20/2023 16:08:31 learning about mood disorders Not available 02/20/2023 16:08:27 06/13/2023 [id number] doraedie: care instructions pmadden Not available 06/13/2023 11:23:28 Follow up if no improvement or if symptoms worsen. pmadden Not available 06/13/2023 11:16:56 09/05/2023 [id number] Patient understands usual risk, benefits and side effects. Not available 09/05/2023 14:29:56 Reason for Referral Breast Surgery Referral for Atypical lobular hyperplasia of left breast for removal of calcification Referring Physician: Amber Piña, Family Medicine, Encounter Date: 02/20/2023 Results Created Date Observation Date Name Description Value Unit Range Abnormal Flag Note LastModifiedBy Organization Detail LastModifiedTime 12/27/19 23 12/26/2022 MAMMO , scree hortencia, digit al, bilat eral No observ ation record ed. [address] [facility] [place] [address] [place], [address], 12/27/2022 15:14:21 01/10/20 23 01/09/2023 MAMMO , diagn ostic , tomos ynthe sis, unila teral No observ ation record ed. [address] [facility] [address] [place], [address], 01/10/2023 08:14:32 01/24/2001/23/2023 stere otact ic breas t biops y (PROC ) No observ ation record ed. [address] [place], [address], 01/23/2023 14:03:39 06/27/19 24 06/27/2023 MAMMO , diagn ostic , digit al, unila teral No observ ation record ed. [address] [place] [address] [place]án [place], [address], 06/27/2023 12:01:04 07/27/19 24 07/09/2023 mammo gram, follo w up* No observ ation record ed. [address] (Medical Records) [address] [place], [address], 07/28/2023 08:56:20 08/01/19 24 08/01/2023 XR, finge r(s) No observ ation record ed. [address] (Medical Records) [address] [place], [address], 08/01/2023 16:01:25 08/23/19 24 08/14/2023 MRI, breas t, bilat eral, w/o contr ast No observ ation record ed. [address] (Medical Records) [address] [place], [address], 08/23/2023 12:14:44 10/20/19 24 10/20/2023 US, duple x, venou s, lower extre mity No observ ation record ed. [address] (Medical Records) [address] [place], [address], 10/21/2023 14:44:57 01/02/20 24 12/03/2023 US, pelvi s, trans abdom inal + trans vagin al No observ ation record ed. [address] (Medical Records) [address] [place], [address], 01/02/2024 11:25:13 Result Notes None recorded. Problems Name Problem SNOMED Code Status Onset Date Resolution Date Notes Provider Name and Address Organization Details Recorded Time Elin thyroidit is 68484247 Active 2016 Not Available [facility] 2 09:53:37 Depressiv e disorder 87316537 Completed 201607/04/2016 Michelle Glading-Di dianne null, [facility] 8 11:24:10 Depressiv e disorder 49082662 Completed 201607/06/2017 Michelle peralta, [facility] 8 11:24:10 Family history of malignant neoplasm 443561468 Completed 201702/20/2023 AMBER PIÑA MD [address] [facility] [address], [place], [address] , [facility] 3 06:11:32 Lumbago with sciatica 189286173 Completed 202003/29/2020 Dyan Newman PA-C [address] [facility] [address], [place], [address] , [facility] 1 16:16:07 Degenerat ion of lumbosacr al intervert ebral disc 60332087 Active 2020 Not Available [facility] 2 09:53:37 Acute conjuncti vitis of left eye 46488550849 9105 Completed 202102/20/2023 AMBER PIÑA MD [address], [place], [address] , [facility] 3 06:11:14 Vitamin D deficienc y 26725410 Active 2021 Not Available [facility] 2 09:53:37 Atypical lobular hyperplas ia of left breast 75514033997 819103 Active 2022 AMBER PIÑA MD [address], [place], [address] , [facility] 3 10:14:34 Severe major depressio n, single episode 96666166034 5 Active 2023 Rayne peralta, [facility] 4 14:22:15 Problem Notes None recorded. Procedures Surgical History Date Name Laterality Status Provider Name and Address Organization Details Recorded Time 07/09/19 24 lumpectomy of breast completed Mary Louise [facility] 07/10/2023 08:50:04 01/10/20 23 Most Recent Mammogram completed Sharlene May MA [facility] 02/20/2023 14:22:08 05/06/19 23 Colonoscopy completed Mary Louise [facility] 05/08/2022 09:39:32 06/06/19 22 Mammogram both breasts completed Ling Aparicio [facility] 06/09/2021 12:36:24 05/10/19 22 Date of Last Pap Smear completed Sharlene May MA [facility] 02/20/2023 14:20:29 05/05/19 20 reduction plasty of bilateral breasts completed Sherri Salazar [facility] 05/09/2019 09:52:35 05/05/19 20 abdominoplasty completed Sherri Salazar [facility] 05/09/2019 09:52:50 05/05/19 20 Other completed Sharlene May MA [facility] 05/05/2021 15:24:13 08/13/19 07 Caesarean Section completed Sharlene May MA [facility] 07/04/2016 10:47:14 12/12/19 04 Caesarean Section completed Sharlene May MA [facility] 07/04/2016 10:47:14 Breast Biopsy completed Sharlene May MA [facility] 05/05/2021 15:24:13 Breast Surgery completed Sharlene May MA [facility] 05/05/2021 15:24:13 Imaging Results Imaging Date Name Status LastModified by Organization Details LastModified Time 12/26/2022 MAMMO, screening, digital, bilateral completed [address] [place] [address] [facility] [place] [address] [place], [address], 12/27/2022 15:14:21 01/09/2023 MAMMO, diagnostic, tomosynthesis, unilateral completed [facility] [address] [place], [address], 01/10/2023 08:14:32 01/23/2023 stereotactic breast biopsy (PROC) completed [address] [place], [address], 01/23/2023 14:03:39 06/27/2023 MAMMO, diagnostic, digital, unilateral completed [address] [place], [address], 06/27/2023 12:01:04 07/09/2023 mammogram, follow up* completed [address] (Medical Records) [address] [place] [address], [address], 07/28/2023 08:56:20 08/01/2023 XR, finger(s) completed [address] (Medical Records) [address] [place] [address], [address], 08/01/2023 16:01:25 08/14/2023 MRI, breast, bilateral, w/o contrast completed [address] (Medical Records) [address] [place] [address], [address], 08/23/2023 12:14:44 10/20/2023 US, duplex, venous, lower extremity completed [address] (Medical Records) [address] [place] [address], [address], 10/21/2023 14:44:57 12/03/2023 US, pelvis, transabdominal + transvaginal completed [address] (Medical Records) [address] [place] [address], [address], 01/02/2024 11:25:13 Procedure Notes None recorded. Medical Equipment None Reported. Allergies Allergen ID Allergen Name Allergen Category Reaction Reaction Severity Criticality Documentation Date Start Date Code Code System Note Provider Name and Address Organization Details Recorded Time 89435 Medicinal product containin g penicilli n and acting as antibacte rial agent (product) medicatio n hives severe Not available 07/04/2016 90250 05 SNOMED NELSON Topete [facility] 7 10:46:23 83194 vancomyci n medicatio n anaphylax is Not available [facility] 09/05/2023 55440 RxNorm MIHIR Barajas [facility] 4 14:06:03 Medications Name Sig Start Date Stop Date Status Note LastModified by Organization Details LastModified Time cyclobenzap rine 10 mg tablet TAKE 1 TABLET BY MOUTH EVERY DAY FOR 7 DAYS 04/02 completed Not Available Not Available Not Available clindamycin HCl 300 mg capsule 03/08 completed Not Available Not Available Not Available azithromyci n 250 mg tablet 12/05 completed Not Available Not Available Not Available tretinoin 0.025 % topical cream active Not Available Not Available Not Available meloxicam 15 mg tablet TAKE 1 TABLET BY MOUTH EVERY DAY 02/20 completed Not Available Not Available Not Available sulfamethox azole 800 mg-trimetho prim 160 mg tablet 09/04 completed Not Available Not Available Not Available levothyroxi ne 25 mcg tablet active Not Available Not Available Not Available alprazolam 0.5 mg tablet 12/05 completed Not Available Not Available Not Available alprazolam 0.25 mg tablet TAKE 1 TABLET BY MOUTH EVERY 15 MINUTES PRIOR TO PROCEDURE 10/12 completed Not Available Not Available Not Available polymyxin B sulfate 10,000 unit-trimet hoprim 1 mg/mL eye drops INSTILL 1 DROP INTO AFFECTED EYE 6 TIMES A DAY FOR 7 DAYS 09/04 completed Not Available Not Available Not Available fluoxetine 10 mg capsule Take 1 capsule every day by oral route for 90 days. 11/06 completed Not Available Not Available Not Available betamethaso ne dipropionat e 0.05 % topical cream 12/05 completed Not Available Not Available Not Available omeprazole 20 mg capsule,del ayed release Take 1 capsule every day by oral route for 30 days. 12/05 completed Not Available Not Available Not Available hydroxyzine HCl 25 mg tablet TAKE 1 TABLET BY MOUTH EVERY 6 TO 8 HOURS NEEDED FOR ITCHINESS 03/08 completed Not Available Not Available Not Available ergocalcife rol (vitamin D2) 1,250 mcg (50,000 unit) capsule TAKE 1 CAPSULE BY MOUTH ONE TIME PER WEEK 02/26 completed Not Available Not Available Not Available ibuprofen 600 mg tablet TAKE 1 TABLET BY MOUTH FOUR TIMES A DAY FOR 10 DAYS 04/02 completed Not Available Not Available Not Available methylpredn isolone 4 mg tablets in a dose pack TAKE 6 TABLETS ON DAY 1 DIRECTED ON PACKAGE AND DECREASE BY 1 TAB EACH DAY FOR A TOTAL OF 6 DAYS 04/26 completed Not Available Not Available Not Available doxycycline hyclate 100 mg tablet TAKE 1 TABLET BY MOUTH TWICE A DAY FOR 7 DAYS 10/07 completed Not Available Not Available Not Available tamoxifen 20 mg tablet Take 1 tablet every day by oral route at bedtime for 90 days. active Not Available Not Available No t Available diazepam 5 mg tablet 03/08 completed Not Available Not Available Not Available levothyroxi ne 112 mcg tablet Take 1 tablet every day by oral route as directed for 90 days. 06/12 completed Not Available Not Available Not Available oxycodone 5 mg tablet 09/04 completed Not Available Not Available Not Available escitalopra m 10 mg tablet Take 1 tablet every day by oral route as directed for 30 days. active Not Available Not Available No t Available metronidazo le 1 % topical gel active Not Available Not Available Not Available chlorhexidi ne gluconate 0.12 % mouthwash 12/05 completed Not Available Not Available Not Available levothyroxi ne 112 mcg capsule TAKE 1 CAPSULE BY MOUTH EVERY DAY active Not Available Not Available No t Available Contrave 8 mg-90 mg tablet,exte nded release Take 2 tablets twice a day by oral route for 30 days. 06/12 completed Not Available Not Available Not Available Sutab 1.479-0.188 -0.225 gram tablet TAKE DIRECTED PER PACKAGING -NOT CVD BY INS 10/05 completed Not Available Not Available Not Available Flowflex COVID-19 Antigen Home Test kit FOLLOW INSTRUCTI ONS INCLUDED WITH THE PACKAGE. 10/07 completed Not Available Not Available Not Available Vitals Date Recorded Body height Body mass index (BMI) Body weight Oxygen saturation Oxygen saturation in Arterial blood by Pulse oximetry Heart rate Body temperature Systolic blood pressure Diastolic blood pressure Provider Name and Address Organization Details Last Updated DateTime 3 167.64 cm 30.4 kg/m2 27938.1 7 g 98 % 98 % 79 /min 97.6 [degF] 111 mm[Hg] 68 mm[Hg] Sharlene May MA [facility] 3 09:22:37 Date Recorded Body height Body mass index (BMI) Body weight Oxygen saturation Oxygen saturation in Arterial blood by Pulse oximetry Heart rate Body temperature Systolic blood pressure Diastolic blood pressure Provider Name and Address Organization Details Last Updated DateTime 3 167.64 cm 30.1 kg/m2 34088.9 8 g 98 % 98 % 76 /min 98.1 [degF] 106 mm[Hg] 65 mm[Hg] [facility] 3 14:18:24 Date Recorded Body height Body mass index (BMI) Body weight Heart rate Oxygen saturation Oxygen saturation in Arterial blood by Pulse oximetry Body temperature Systolic blood pressure Diastolic blood pressure Provider Name and Address Organization Details Last Updated DateTime 4 167.64 cm 30.2 kg/m2 03973.7 7 g 67 /min 98 % 98 % 98.3 [degF] 110 mm[Hg] 68 mm[Hg] Jeanette preston MA [facility] 4 11:02:01 Date Recorded Body height Body mass index (BMI) Body weight Heart rate Oxygen saturation Oxygen saturation in Arterial blood by Pulse oximetry Body temperature Systolic blood pressure Diastolic blood pressure Provider Name and Address Organization Details Last Updated DateTime 4 167.64 cm 30.9 kg/m2 43086.5 4 g 70 /min 99 % 99 % 98.3 [degF] 128 mm[Hg] 85 mm[Hg] Anju Hagen LPN [facility] 4 14:05:28 Date Recorded Body height Body mass index (BMI) Body weight Heart rate Oxygen saturation Oxygen saturation in Arterial blood by Pulse oximetry Body temperature Systolic blood pressure Diastolic blood pressure Provider Name and Address Organization Details Last Updated DateTime 4 167.64 cm 31.2 kg/m2 34737.3 3 g 80 /min 97 % 97 % 98.3 [degF] 113 mm[Hg] 69 mm[Hg] Jeanette preston MA [facility] 4 13:02:11 Social History Question Answer Notes LastModified by Organizat ion Details LastModified Time Tobacco Smoking Status [facility] 10:47:06 What Is Your Level Of Alcohol Consumption? None [email or web address] Information not available 07/04/2016 Is Blood Transfusion Acceptable In An Emergency? Yes [email or web address] Information not available 07/04/2016 What Is Your Level Of Caffeine Consumption? None [email or web address] Information not available 07/04/2016 How Much Tobacco Do You Chew? None [email or web address] Information not available 07/04/2016 Are You Currently Employed? Yes [email or web address] Information not available 07/04/2016 What Type Of Diet Are You Following? REGULAR [email or web address] Information not available 07/04/2016 Which Illicit Or Recreational Drugs Have You Used? Never [email or web address] Information not available 07/04/2016 Do You Or Have You Ever Used E-cigarettes Or Vape? Never Used Electronic Cigarettes Information not available 02/20/2023 What Is Your Occupation? [employer] Information not available 07/04/2016 Live Alone Or With Others? With Others [email or web address] Information not available 02/20/2023 Do You Take Precautions To Prevent Distracted Driving? Yes [email or web address] Information not available 07/04/2016 How Often Do You Need To Have Someone Help You When You Read Instructions, Pamphlets, Or Other Written Material From Your Doctor Or Pharmacy? Never [email or web address] Information not available 07/04/2016 Have You Served In The ? No [email or web address] Information not available 07/04/2016 Have You Or Anyone In Your Household Had Any Of The Following Symptoms In The Last 14 Days: Sore Throat, Cough, Chills, Body Aches For Unknown Reasons, Shortness Of Breath For Unknown Reasons, Loss Of Smell, Loss Of Taste, Fever At Or Greater Than 100 Degrees Fahrenheit? No Information not available 04/02/2020 Are You Or Anyone In Your Household A Health Care Provider Or Emergency Responder? Yes Works As [employer] [email or web address] Information not available 04/02/2020 To The Best Of Your Knowledge Have You Been In Close Proximity To Any Individual Who Tested Positive For COVID-19? No [email or web address] Information not available 04/02/2020 *AWV ONLY* Are You Presently Prescribed Opioid Medication By PCP Or Specialist? If YES -Provider Assess The Benefit For Other, Non-opioid Pain Therapies Instead, Even If The Patient Does Not Have OUD But Is Possibly At Risk. No Information not available 05/05/2021 Have You Recently Traveled To A COVID-19 High Risk Area Or Gathering In The Last 10 Days? No [email or web address] Information not available 04/02/2020 What Was The Date Of Your Most Recent Tobacco Screening? 11/07/2023 Information not available 11/07/2023 How Many Children Do You Have? 2 Elzbieta Information not available 11/07/2023 Do You Use Protection During Sex? No Information not available 07/04/2016 Do You Use Your Seat Belt Or Car Seat Routinely? Yes [email or web address] Information not available 05/05/2021 Seat Belts Used Routinely Yes Information not available 02/20/2023 Are You Sexually Active? Yes [email or web address] Information not available 07/04/2016 Smoke Alarm In Home Yes [email or web address] Information not available 02/20/2023 Do You Have Smoke And Carbon Monoxide Detectors In Your Home? Yes [email or web address] Information not available 05/05/2021 Are You Passively Exposed To Smoke? No [email or web address] Information not available 07/04/2016 Do You Or Have You Ever Used Smokeless Tobacco? Never Used Smokeless Tobacco [email or web address] Information not available 12/05/2018 How Much Tobacco Do You Smoke? No [email or web address] Information not available 02/20/2023 Do You Use Any Illicit Or Recreational Drugs? No Information not available 11/07/2023 Do You Use Sunscreen Routinely? Yes [email or web address] Information not available 07/04/2016 Do You Or Have You Ever Used Any Other Forms Of Tobacco Or Nicotine? No Information not available 11/07/2023 Sex: Unknown Functional Status Question Answer Note LastModified by Organizat ion Details LastModified Time Are you able to walk? YESWOREST [email or web address] Information not available 02/20/2023 Are you able to care for yourself? Yes Information not available 07/04/2016 What is your exercise level? Occasional [email or web address] Information not available 07/04/2016 Mental Status None recorded. Family History Relationship Description Onset Age of this Age Resolved Age Notes LastModified by Organization Details LastModified Time Paternal Grandfather Alcohol abuse [email or web address] Not available 07/04 10:46:44 Paternal Grandfather Malignant tumor of lung [email or web address] Not available 07/04 10:46:44 Paternal Grandfather Malignant tumor of colon [email or web address] Not available 07/04 10:46:44 Maternal Grandmother Alzheimer's disease [email or web address] Not available 07/04 10:46:44 Maternal Grandmother Hypercholest erolemia Not available 07/04 10:46:44 Maternal Grandmother Disorder of thyroid gland [email or web address] Not available 07/04 10:46:44 Maternal Grandmother Arthritis Not available 0 07/04/2016 10:46:44 Maternal Grandmother Obesity [email or web address] Not available 04/2016 10:46:44 Maternal Grandmother Diabetes mellitus [email or web address] Not available 07/04 10:46:44 Mother Malignant tumor of cervix [email or web address] Not available 05/05 15:23:56 Paternal Grandmother Alcohol abuse [email or web address] Not available 05/05 15:23:56 Paternal Grandmother Malignant tumor of breast [email or web address] Not available 07/04 10:46:44 Paternal Grandmother Malignant tumor of lung [email or web address] Not available 07/04 10:46:44 Son Attention deficit hyperactivit y disorder 8 [email or web address] Not available 02/02 14:13:19 Son Anxiety disorder 10 Not available 02/20 14:13:19 Maternal Aunt Asthma [email or web address] Not av ailable 07/04/2016 10:46:44 Maternal Aunt Depressive disorder suicid e in matern al cousin [email or web address] enz Not available 07/06/2017 11:26:53 Father Chronic obstructive pulmonary disease [email or web address] Not available 07/04 10:46:44 Father Hypercholest erolemia [email or web address] Not available 05/05 15:23:56 Father Diabetes mellitus [email or web address] Not available 05/05 15:23:56 Father Malignant tumor of lung Not available 07/04 10:46:44 Father Alcohol abuse [email or web address] Not available 05/05 15:23:56 Father Hypertensive disorder [email or web address] Not available 07/04 10:46:44 Father Allergy [email or web address] Not availabl e 02/20/2023 14:13:19 Father Malignant tumor of pancreas 58 59 [email or web address] Not available 07/04 10:50:21 Maternal Grandfather Chronic obstructive pulmonary disease [email or web address] Not available 05/05 15:23:56 Paternal Aunt Alcohol abuse [email or web address] Not available 05/05 15:23:56 Paternal Aunt Alcohol abuse [email or web address] Not available 05/05 15:23:56 Paternal Aunt Malignant tumor of breast [email or web address] Not available 05/05 15:23:56 Paternal Aunt Malignant tumor of lung [email or web address] Not available 07/04 10:46:44 Paternal Aunt Malignant tumor of lung [email or web address] Not available 05/05 15:23:56 Paternal Uncle Hypercholest erolemia [email or web address] Not available 05/05 15:23:56 Paternal Uncle Diabetes mellitus [email or web address] Not available 05/05 15:23:56 Medical History Condition Response Other N Gout N Blood Diseases N Kidney Stones N Hyperthyroidism N Breast Cancer N Hypothyroidism Y Lung Disease N Depression Y COPD N Defects or Inherited Disease N Anesthesia Complications N Headaches/Migraines Y Varicose Veins N Anxiety Disorder Y Obesity Y Vision or Eye Problems N Arthritis Y Head Injury/Concussion N Infertility N Polyps N Congenital Anomalies N Acid Reflux (GERD) N Cancer N Stroke N ADHD N Endometriosis N High Cholesterol N Liver Disease N Fibromyalgia N Kidney Disease N Heart Problems N Ear or Hearing Problems N Hospitalizations N Thyroid Problems Y GI Problems N Acne N Eating Disorder N Skin Problems N Anemia N Constipation N Bladder Problems N Mental Illness N Diabetes N Ovarian Cancer N Blood Transfusions N Seizures/Epilepsy N Tuberculosis N AIDS/HIV N Congestive Heart Failure (CHF) N Eczema N Abuse/Domestic Violence N Diverticulitis N Asthma N Allergies N Reflux/GERD N Hepatitis N Pulmonary Embolism N Hypertension N Chicken Pox Y Autism Spectrum Disorder (ASD) N Osteoporosis N Gynecological History Statement/Question Response Date of Last Pap Smear 05/09/2021 Most Recent Mammogram 01/09/2023 Obstetrics History GPAL:G 0 P 0 0 0 0 Immunizations Vaccine Type Date Status Note Provider Nam e and Address Organization Details Recorded Time DTaP 6 completed Mary L Louise null, [facility] 01/31/2022 12:27:22 DTaP 6 completed Mary L Louise null, [facility] 01/31/2022 12:27:22 DTaP 7 completed Mary L Louise null, [facility] 01/31/2022 12:27:21 DTaP 8 completed Mary L Louise null, [facility] 01/31/2022 12:27:22 DTaP 2 completed Mary L Louise null, [facility] 01/31/2022 12:27:22 Td (adult) 2 completed Mary L Louise null, [facility] 01/31/2022 12:27:22 OPV 6 completed Mary L Louise null, [facility] 01/31/2022 12:27:22 OPV 6 completed Mary L Louise null, [facility] 01/31/2022 12:27:21 OPV 7 completed Mary L Louise null, [facility] 01/31/2022 12:27:22 OPV 8 completed Mary L Louise null, [facility] 01/31/2022 12:27:21 OPV 2 completed Mary L Louise null, [facility] 01/31/2022 12:27:22 MMR 7 completed Mary L Louise null, [facility] 01/31/2022 12:27:22 MMR 0 completed Mary L Louise null, [facility] 01/31/2022 12:27:22 varicella 4 completed Mary L Louise null, [facility] 01/31/2022 12:27:22 Hep B, adult 6 completed Mary L Louise null, [facility] 01/31/2022 12:27:22 Hep B, adult 5 completed Mary L Louise null, [facility] 01/31/2022 12:27:21 Hep B, adult 6 completed Mary L Louise null, [facility] 01/31/2022 12:27:21 Tdap 3 completed Mary L Louise null, [facility] 01/31/2022 12:27:21 Influenza, split virus, quadrivalent, preservative 7 completed Mary L Louise null, [facility] 01/31/2022 12:27:21 Influenza, split virus, quadrivalent, preservative 9 completed Mary L Louise null, [facility] 01/31/2022 12:27:22 Influenza, split virus, quadrivalent, preservative 9 completed Sharlene May MA null, [facility] 02/20/2023 14:18:46 Influenza, split virus, quadrivalent, preservative 0 completed Mary L Louise null, [facility] 01/31/2022 12:27:22 Influenza, split virus, quadrivalent, preservative 1 completed Mary L Louise null, [facility] 01/31/2022 12:27:22 Influenza, split virus, trivalent, preservative 3 completed Mary L Louise null, [facility] 01/31/2022 12:27:21 Influenza, split virus, trivalent, preservative 3 completed Mary L Louise null, [facility] 01/31/2022 12:27:21 Influenza, split virus, quadrivalent, preservative 7 completed Mary L Louise null, [facility] 01/31/2022 12:27:21 Influenza, MDCK, quadrivalent, PF 8 [facility] 12:27:22 Influenza, split virus, quadrivalent, PF 1 completed Mary L Louise [facility] 01/31/2022 12:27:22 COVID-19, mRNA, LNP-S, PF, 100 mcg/0.5mL dose or 50 mcg/0.25mL dose 0 completed Mary L Louise [facility] 01/31/2022 12:27:22 COVID-19, mRNA, LNP-S, PF, 100 mcg/0.5mL dose or 50 mcg/0.25mL dose 1 completed [facility] 12:27:22 Influenza, split virus, trivalent, preservative 4 completed Mary L Louise null, [facility] 01/31/2022 12:27:22 Influenza, split virus, trivalent, preservative 5 completed [facility] 12:27:22 COVID-19, mRNA, LNP-S, bivalent, PF, 50 mcg/0.5 mL or 25mcg/0.25 mL dose 2 completed NELSON Topete, [facility] 2022 09:19:17 Influenza, split virus, quadrivalent, PF 2 completed NELSON Topete, [facility] 02/20/2023 14:18:46 COVID-19, mRNA, LNP-S, PF, 30 mcg/0.3 mL dose 1 completed Sharlene DanielsonNELSON salmon, [facility] 2022 09:19:17 Tdap 3 completed NELSON Topete, [facility] 02/20/2023 14:18:46 COVID-19, mRNA, LNP-S, PF, 100 mcg/0.5mL dose or 50 mcg/0.25mL dose 1 completed Sharlenejesus alberto DanielsonMayNELSON salmon, [facility] 02/20/2023 14:18:46 COVID-19, mRNA, LNP-S, PF, 100 mcg/0.5mL dose or 50 mcg/0.25mL dose 1 completed Jeanette Cortez NELSON madison null, [facility] 06/13/2023 10:56:34 COVID-19, mRNA, LNP-S, PF, 30 mcg/0.3 mL dose 0 completed Sharlene NELSON May, [facility] 02/20/2023 14:18:46 Influenza, MDCK, quadrivalent, PF 4 completed Anju Caporale, WASTEWATER TECHNICIAN null, [facility] 09/05/2023 14:05:43 COVID-19, mRNA, LNP-S, PF, alyssa-sucrose, 30 mcg/0.3 mL 4 completed Anju Caporale, WASTEWATER TECHNICIAN null, [facility] 09/05/2023 14:05:43 Past Encounters Encounter ID Performer Location Encounter Start Date Encounter Closed Date Diagnosis/Indication Diagnosis SNOMED-CT Code Diagnosis ICD10 Code [id number] Michelle dean Main Office [address] [place] [address] 07/04/2016 10:33:00 07/04/2016 11:53:47 Adult health examination 837898701 Z00.00 Hypothyroidism 95035632 E03.9 Elin thyroiditis 21 237534 E06.3 Single jing or depressive episode, in full remission 401739061 F32.5 Hypercholesterolemia 136 95949 E78.2 Fatigue 46825525 R53.83 Sensation of blocked ear 772270146 H93.299 Family his tory of breast cancer 626523020 Z80.3 [id number] Rip Pineda MD Main Office [address] [address] [place] [address] 10/05/2016 15:40:46 10/09/2016 14:54:48 Edema of knee 117209303 R60.0 [id number] [facility] [address] [address] [place] [address] 07/06/2017 10:24:02 07/06/2017 11:56:04 Adult health examination 483723283 Z00.00 Hypercholesterolemia 136 31976 E78.2 Fatigue 36935561 R53.83 Elin thyroiditis 21 483445 E06.3 Hypothyroidism 33185550 E03.9 Mammography abnormal 168 010605 R92.8 Gastroesop hageal reflux disease 826994030 K21.9 Major depr ession single episode, in partial remission 58416786 F32.4 Family his tory of malignant neoplasm 961737341 Z80.9 [id number] Michelle [facility] Main Office [address] [address] [place] [address] 12/05/2018 08:15:41 12/05/2018 09:50:55 Adult health examination 408128857 Z00.00 Anti-nucle ar factor detected 449881515 R76.8 Multiple joint pain 3567 8005 M25.50 Fatigue 35219155 R53.83 [id number] Michelle [facility] Main Office [address] [address] [place] [address] 03/12/2019 09:39:13 03/12/2019 10:28:59 Diarrhea 25367729 R19.7 Low back pain 430736781 M54.5 [id number] Dyan Newman PA-C [facility] [address] [address] [place] [address] 03/08/2020 14:15:15 03/08/2020 15:23:02 Lumbago with sciatica 578346952 M54.40 Pain in coccyx 63034666 M53.3 [id number] Dyan Newman PA-C Main Office [address] [place] [address] 03/09/2020 08:31:18 03/09/2020 09:53:52 Lumbago with sciatica 515595501 M54.40 [id number] Michelle Ivania dean Main Office [address] [place] [address] 04/02/2020 14:48:12 04/02/2020 15:51:52 Adult health examination 316005517 Z00.00 Degenerati on of lumbosacral intervertebral disc 80317663 M51.37 Screening for malignant neoplasm of cervix 318500472 Z12.4 Screening for malignant neoplasm of breast 774690664 Z12.39 Low back pain 702421655 M54.5 [id number] Angelika Ramirezsaravanan [facility] [address] [address] [facility] [place] [address] 04/26/2020 13:41:31 04/27/2020 11:55:07 Acute conjunctivitis 52291200 H10.33 [id number] Rayne Carrasco Main Office [address] [place] [address] 05/05/2021 15:23:02 05/05/2021 16:06:57 Adult health examination 430218181 Z00.00 Elin thyroiditis 21 514790 E06.3 Body mass index 25-29 - overweight 479363909 Z68.29 Screening for malignant neoplasm of colon 327272509 Z12.11 Family his tory of malignant neoplasm 816173701 Z80.9 Screening for malignant neoplasm of breast 146603594 Z12.39 Mild memor y disturbance 698564179 R41.3 Overweight 869790971 E66 .3 [id number] ABDIRAHMAN Andino [facility] [address] [facility] [address] [place] [address] 10/12/2021 09:12:15 10/12/2021 15:48:39 Red eye 540953764 H11.432 Acute conj unctivitis of left eye 1782715673 94692 H10.32 [id number] Rayne Aragono Main Office [address] [facility] [address] [place] [address] 2022 09:06:43 2022 10:10:34 Laceration of finger of right hand 6508600125 4907089 S61.210A [id number] AMBER PIÑA MD Main Office [address] [address] [place] [address] 02/20/2023 14:00:13 02/20/2023 14:52:53 Adult health examination 142637739 Z00.00 Atypical l obular hyperplasia of left breast 1389650659 0721666 N60.92 Degenerati on of lumbosacral intervertebral disc 15298738 M51.37 Vitamin D deficiency 347 00444 E55.9 Elin thyroiditis 21 793845 E06.3 Fatigue 50990842 R53.83 Z00.00 Hyperlipidemia 40630018 E78.5 Z00.00 Hepatitis C screening 41 3698183 Z11.59 Mood disorder 24518703 F 39 Body mass index 30+ - obesity 534202071 Z68.30 E66.9 [id number] Frandy Newman PA-C Main Office [address] [address] [place] [address] 06/13/2023 10:38:03 06/13/2023 11:27:28 Acute conjunctivitis 17942706 H10.30 [id number] Rayne Aragono Main Office [address] [facility] [address] [place] [address] 09/05/2023 13:48:37 09/05/2023 14:26:01 Severe major depression, single episode 6213833349 05 F32.2 [id number] YULI LOVETT Main Office [address] [address] [place] [address] 11/07/2023 12:47:52 11/07/2023 13:15:04 Severe major depression, single episode 8021756951 05 F32.2 Health Concerns Section Related Observation LastModified by Organization Detai ls LastModified Time None Recorded Concern Status LastModified by Organization Details LastModified Time None Recorded Advance Directives Directive None Recorded Payers Encounter Date Sequence Insurance Name Policy Number Policy Grant Covered Member ID Grant Member ID Guarantor Name 2022 1 [employer] [place] [id number] Lorri M Jacqueline [id number] Lorri Jacqueline 02/20/2023 1 [employer] [id number] Lorri M Jacqueline [id number] Lorri Jacqueline 06/13/2023 1 [employer] [place] [id number] Lorri M Jacqueline [id number] Lorri Jacqueline 09/05/2023 1 [employer] [id number] Lorri M Jacqueline [id number] Lorri Jacqueline 11/07/2023 1 [employer] [id number] Lorri M Jacqueline [id number] Lorri Jacqueline Notes Date Note Type Note Provider Name and Address Organization Details Recorded Time 2022 text/html 47-year-old femvamsi sanchez presents for wound check. She had a laceration on her right ring finger hand. Pt went to [place] [facility] two weeks ago and the wound did not need stitches she was however given an antibiotic. Pt just wants to make sure wound is healing well. She confirmed to me that she was given the tetanus shot. Rayne peralta, [facility] 10/23/2022 11:00:50 02/20/2023 text/html Lorri Phillips i s a 47 year old F who presented to the clinic for her annual exam. Pt denies any emergency room visits or hospitalizations this year. Pt this year did have an abnormal breast imaging which needed a biospy. Pathology showed atypical lobular hyperplasia. Pt wanted to seek advise at [facility] before proceeding with any procedure. Complaints: weight Is not using ASA.OTC/Herbal supplements use: vitamin D Gynecologic HistoryPatient's last menstrual period was two weeks agoMenstrual cycle lasts 5-7 days, without spotting/clothsMenstru al cycle: monthlySexually active: yes with husbandContraception: none+ fibroids+ abnormal paps, had a colpo and it was normalDenies cysts, stds Obstetric HistoryGravida: 2Para: 2AB: 0Livin (C/S)Complications: none Drug use: neverEtoh use: nevertobacco use: neverspf/derm: Dental: every 6 monthsEye: every other ear, wears glassesDiet: binge eatsActivity: pt tries to lift weights once week, treadmill walking 1 hour AMBER PIÑA MD [address] [address], [place], [address], [facility] 02/20/2023 16:47:28 06/13/2023 text/html Patient c/o left eye redness, itching, and discomfort x 4 days.+ am crustingno use of warm compresses Frandy Newman PA-C [address] [address], [place], [address], [facility] 06/13/2023 11:27:41 09/05/2023 text/html Lorri is a 47yr old F who presents for discussion to restart an SSRI for depression. 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 Reports of having increased stress related to family situation. Has worsening depression due to family member having a terminal illness. Is interested in going back on an SSRI. Does have a therapist she can contact via telehealth. Denies of any SI or HI. Rayne peralta, [facility] 09/18/2023 14:23:22 11/07/2023 text/html Lorri is a 48yr old F who presents for depression/anxiety f/u. 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 Reports of having increased stress related to family situation. Has worsening depression due to family member having a terminal illness. Recently started fluoxetine and noticed immediate improvements in overall mental health.Shortly after starting SSRI, pt started tamoxifen by her oncologist. Concerned for medication interaction and is looking to possibly switch. Does have a therapist she can contact via telehealth. Denies of any SI or HI. YULI LOVETT [address] [address], [place], [address], [facility] 11/07/2023 14:24:24 OBGyn Episode No OBEpisode recorded.
== END 2024-02-19 15:54 | disposition home or self-care (01) ==
LOC: HO.MAMMO 15:53
PROVIDERS: Absent Provider Obstetrics & Gynecology; PCP Student in an Organized Health Care Education/Training Program; Visit Provider Student in an Organized Health Care Education/Training Program
DX: Z12.31 Encounter for screening mammogram for malignant neoplasm of breast (principal)
CPT/HCPCS: 77063; 77067

== ENCOUNTER → 2024-02-19 16:15 | Outpatient (BNV) | payer OTHER, SELFPAY | PROVIDERS: Absent Provider Obstetrics & Gynecology; PCP Student in an Organized Health Care Education/Training Program; Visit Provider Internal Medicine | DX: Z12.31 Encounter for screening mammogram for malignant neoplasm of breast (principal) | CPT/HCPCS: 77063; 77067 ==

== ENCOUNTER 2024-03-11 13:12 | Outpatient (AMB) | payer OTHER, SELFPAY ==
--- NOTE | 2024-03-11 13:13 | MHC.OFFVIS ---
Vital Signs 03/11/24 13:26 Height 5 ft 6 in Weight 188 lb BMI 30.3 BP 124/58 L Blood Pressure Location Lt brachial Position Sitting Pulse 67 Intake Visit Reasons: 6 month mammo follow up Intake Note: Patient is seen in office for 6 month follow up visit, breast exam. Pt c/o: no changes or concerns mm:02/19/24 MRI B: 08/14/23 Information Technology Instructor Required: No Cake Mixer: Cake Mixer Present Accompanied by: Self / Same As Patient Allergies Penicillins Allergy (Severe, Verified 03/11/24 13:14) Hives vancomycin Allergy (Severe, Verified 03/11/24 13:14) Anaphylaxis HPI Comments Details: 40-year-old female patient with a history of atypical lobular hyperplasia returning for a follow-up breast examination. She underwent a left breast lumpectomy on 07/09/2023 and was found to have atypical lobular hyperplasia. She was subsequently evaluated by Dr. Saenz on 09/11/2023. She was offered tamoxifen. She now reports she is seeing the breast cancer center at [facility] and decided to start the tamoxifen. She is tolerating this well. Family history is significant for a paternal grandmother with breast cancer x2, developed in her 60s. Her father was diagnosed with pancreatic cancer at the age of 57 and paternal grandfather was diagnosed with prostate cancer. She is 3 para 2 with 1 miscarriage. She breastfed her 1st child for short period time. She denies a history of breast infections. 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 The patient's Tyrer-Cuzick remaining lifetime risk of breast cancer was calculated at 41.1% placing her well above the 20% threshold, placing her at high risk for breast cancer. She was also determined to be at increased risk for colon cancer but reports that she has previously undergone colonoscopy last year. Mammogram performed on 02/19/2024 revealed no mammographic evidence of malignancy (BI-RADS 2). MRI performed on 08/14/2023 also revealed no MR specific evidence of malignancy (BI-RADS 2 left breast, BI-RADS 1 right breast). Repeat MRI in 1 year is recommended. [facility] Medical History Family history of colon cancer Pre-op examination Bhargavi's thyroiditis Surgical History History of lumpectomy of left breast (07/09/23) H/O abdominoplasty Hx of breast reduction, elective H/O section Family History Paternal Grandfather Prostate cancer Brain cancer Colon cancer Paternal Grandmother Breast cancer Esophageal cancer Lung cancer Paternal Aunt Lung cancer Paternal Aunt Lung cancer Father Pancreatic cancer Esophageal cancer Lung cancer Mother Cervical cancer Social History Household Members: Spouse and Family Patient Tobacco Use Status: Never used Tobacco Second Hand Smoke Exposure: No service: Yes Current occupational status: employed Review of Systems Const All systems reviewed & are unremarkable except as noted in HPI and below Physical Exam Const General: cooperative and no acute distress Nutritional Appearance: well nourished Orientation/consciousness: patient oriented x3 Limitations: no limitations Chest Other: Bilateral breast reduction surgery incisions which are well healed Left breast: No skin change, no nipple retraction, no nipple discharge, no palpable mass, no enlarged lymph nodes. Right breast: No skin change, no nipple retraction, no nipple discharge, no palpable mass, no enlarged lymph nodes Resp Effort & Inspection: normal respiratory effort, no audible wheezes, no cough and no respiratory distress Cardio Jugular venous distension: no JVD GI Inspection: Yes normal to inspection Skin Other: Warm, dry, no rash Neuro General: patient oriented x3 Extrem General: Yes no clubbing, cyanosis or edema Assessment & Plan Assessment & Plan (1) Atypical lobular hyperplasia (ALH) of left breast: Code(s): N60.92 - Unspecified benign mammary dysplasia of left breast Category: Medical (2) Increased risk of breast cancer: Code(s): Z91.89 - Other specified personal risk factors, not elsewhere classified Category: Medical (3) Family history of breast cancer: Code(s): Z80.3 - Family history of malignant neoplasm of breast Category: Medical Plan 40-year-old female patient diagnosed with atypical lobular hyperplasia status post lumpectomy on 07/09/2023. She was being followed by the [facility] breast Center in his currently on tamoxifen and tolerating this well. Her most recent mammogram of 02/19/2024 revealed no mammographic evidence of malignancy (BI-RADS 2). MRI performed on 08/14/2023 revealed no MR specific evidence of malignancy (BI-RADS 2 left, BI-RADS 1 right). She will be due for a yearly MRI in 08/2024 and MRI in 02/2025. She reports she will be going on a tour of [employer] including [employer], and [employer] in April 2024. She will return in approximately 6 months for follow-up examination. She is welcome to call sooner for any new concerns. Coding Level of Care Code Est Pt Level 3 (36529) Complex EM visit Add On G2211 Diagnoses Atypical lobular hyperplasia (ALH) of left breast N60.92 Increased risk of breast cancer Z91.89 Family history of breast cancer Z80.3
[2024-03-11 13:26] VITALS: BP 124/58; PULSE 67; BMI 30.3
== END 2024-03-11 13:40 | disposition home or self-care (01) ==
PROVIDERS: PCP Student in an Organized Health Care Education/Training Program; Visit Provider Surgery
DX: N60.92 Unspecified benign mammary dysplasia of left breast (principal); Z91.89 Other specified personal risk factors, not elsewhere classified; Z80.3 Family history of malignant neoplasm of breast
CPT/HCPCS: 99213

== ENCOUNTER 2024-04-02 07:15 | Outpatient (REF) | payer OTHER, SELFPAY ==
[2024-04-02 07:27] LABS: MANUAL DIFF FLAG NO
[2024-04-02 07:57] LABS: Basophils Percent Auto 0.7 % (0-2); Eosinophils Absolute Auto 0.1 X10*3/uL (0.0-0.4); Eosinophils Percent Auto 1.2 % (0-4); Hematocrit 35.6 % (37.0-47.0); Hemoglobin 11.9 g/dl (12.0-16.0); Imm Gran Abs Auto 0.02 X10*3/uL (0.00-0.03); Imm Gran Pct Auto 0.3 % (0.0-0.4); Lymphocytes Absolute Auto 1.9 X10*3/uL (1.2-4.9); Lymphocytes Percent Auto 31.4 % (20-40); Mean Corpuscular HGB Conc 33.4 g/dl (31.0-35.0); Mean Corpuscular Volume 92.7 fL (80.0-98.0); Mean Platelet Volume 9.2 fL (9.4-12.3); Monocytes Absolute Auto 0.4 X10*3/uL (0.1-1.2); Monocytes Percent Auto 6.7 % (2-11); Neutrophils Absolute Auto 3.6 x10*3/uL (2.0-8.3); Neutrophils Percent Auto 59.7 % (45-73); Platelet Count 297 X10*3/uL (160-400); Red Blood Count 3.84 X10*6/uL (4.20-5.50); Red Cell Distribution Width 12.6 % (11.0-16.0)
[2024-04-02 08:36] LABS: Anion Gap 12 (12-20); Blood Urea Nitrogen 12 mg/dL (9-16); Calcium 9.1 mg/dL (8.4-10.2); Carbon Dioxide 22 mmol/L (22-29); Chloride 108 mmol/L (96-108); Cholesterol 167 mg/dL (<200); Estimated Glomerular Filt Rate > 60; Glucose Random 111 mg/dL (60-115); HDL Cholesterol 39 mg/dL (>40); LDL Cholesterol Calculated 82 mg/dL (<100); Potassium 4.1 mmol/L (3.3-5.1); Sodium 138 mmol/L (135-145); Triglycerides 233 mg/dL (<150)
[2024-04-02 08:45] LABS: Free T4 (Free Thyroxine) 1.03 ng/dL (0.71-1.85); Thyroid Stimulating Hormone 1.86 uIU/mL (0.32-4.0); Vitamin D 25-OH Total 37.4 ng/mL (>30)
== END 2024-04-02 07:16 | disposition home or self-care (01) ==
LOC: HO.LAB 07:15
PROVIDERS: PCP Student in an Organized Health Care Education/Training Program; Visit Provider Student in an Organized Health Care Education/Training Program
DX: Z00.00 Encounter for general adult medical examination without abnormal findings (principal); E06.3 Autoimmune thyroiditis; E55.9 Vitamin D deficiency, unspecified; E78.5 Hyperlipidemia, unspecified
CPT/HCPCS: 36415; 80048; 80061; 82306; 84439; 84443; 85025

== ENCOUNTER 2024-05-30 13:46 | Outpatient (REF) | payer OTHER, SELFPAY ==
--- NOTE | ~2024-05-30 | MM_ITS ---
EXAMINATION: DXA BONE DENSITY AXIAL HISTORY: Height loss TECHNIQUE: [email or web address] Dual energy absorptiometry (DEXA) of the lumbar spine, total left hip, and femoral neck was performed. COMPARISON: There are no prior studies for comparison. FINDINGS: The bone mineral density of the lumbar spine is 1.290 with a T-score of 0.9, and a Z-score of 0.5. This is indicative of normal bone mineral density. The bone mineral density of the left total hip is 1.112 with a T-score of 0.8, and a Z-score of 0.7. This is indicative of normal bone mineral density. The bone mineral density of the left femoral neck is 1.040 with a T-score of 0.0, and a Z-score of 0.3. This is indicative of normal bone mineral density. MM/XR DEXA axial skeleton IMPRESSION: Based on bone mineral density, and according to World Health Organization (WHO) criteria, the diagnosis is consistent with normal bone mineral density. All bone density values are in grams per centimeter squared (g/cm2). Statistically, 68% of repeat scans fall within 1 SD (+/- 0.010 g/cm2 for AP spine L1-L4) and 1 SD (+/- 0.012 g/cm2 for femur total) FRAX is a trademark of the [employer]'s [facility] Metabolic [employer] Disease, a World Health Organization (WHO) Collaborating Center. Electronically signed by: Sarthak Peres MD 05/30/2024 02:42 PM EDT
== END 2024-05-30 13:47 | disposition home or self-care (01) ==
LOC: HO.MAMMO 13:46
PROVIDERS: PCP Student in an Organized Health Care Education/Training Program; Visit Provider Student in an Organized Health Care Education/Training Program
DX: Z13.820 Encounter for screening for osteoporosis (principal); M85.89 Other specified disorders of bone density and structure, multiple sites
CPT/HCPCS: 77080

== ENCOUNTER → 2024-05-30 14:00 | Outpatient (BNV) | payer OTHER, SELFPAY | PROVIDERS: PCP Student in an Organized Health Care Education/Training Program; Visit Provider Radiology Diagnostic Radiology | DX: E28.39 Other primary ovarian failure (principal) | CPT/HCPCS: 77080 ==

== ENCOUNTER 2024-08-05 11:11 | Outpatient (AMB) | payer OTHER, SELFPAY ==
--- NOTE | 2024-08-05 11:19 | AM.OFFWIN_ITS ---
Intake Vital Signs 08/05/24 11:23 Height 5 ft 6 in Weight 188 lb BMI 30.3 BP 122/78 Blood Pressure Location Lt brachial Position Sitting Pulse 72 Pulse Source Pulse Oximeter Temp 98.2 F Temp Source Oral Pulse Oximetry (%) 98 Oxygen Delivery Method Room Air Intake Visit Reasons: EP head & chest cold Intake Note: Patient here for chest congestion, cough, wheezing and head congestion that started . Patient Tobacco Use Status: Never used Tobacco Allergies Penicillins Allergy (Severe, Verified 08/05/24 11:22) Hives vancomycin Allergy (Severe, Verified 08/05/24 11:22) Anaphylaxis Do you need a note to return to daycare/school/sports/work: No HPI HPI Comments History of Present Illness Details History - The patient is a 48-year-old female pr esenting with episodic coughing fits with wheezing and difficulty breathing for a few days. - Commenced symptoms with fever and nasa l congestion, progressing to a productive cough involving wheezing episodes. - The cough intensity increased with pse udoephedrine intake, producing persistent coughing fits lasting up to 20 minutes, necessitating breaks from patient care duties. - Recent exposure to a [id number] symptomatic coworker who was treated for a respiratory infection with 2 antibiotics. - Reports right ear fullness but denies any ongoing sinus pain. - Absence of known asthma, COPD, seasona l allergies, vaping or tobacco use. Physical Exam General: Cooperative, healthy appearing, comfortable and no acute distress Orientation/consciousness: Patient oriented x3 Limitations: No limitations Head: Normal to inspection Ears: Hearing grossly normal bilaterally, external ears normal and TM normal left, TM right blocked by cerumen Nose: Nasal congestion present Face and sinus: Normal facial exam and Yes sinuses nontender Mouth: Normal oral and palatal mucosa present and moist mucous membranes Throat: Yes tonsils normal, Yes uvula midline. Posterior oropharynx erythema, cobblestoning present Eyes: Appearance normal, both eyes and all related structures Neck: Normal visual inspection Respiratory: Clear to auscultation bilaterally. Normal respiratory effort, able to speak in complete sentences, no respiratory distress, not tachypneic, no tripod positioning and no use of accessory muscles Cardiovascular: Regular rate and rhythm. Normal S1 and S2 Skin: No rashes or lesions noted Neuro: Patient oriented x3 Extremities: Normal to inspection and Yes no clubbing, cyanosis or edema [facility] Medical History Family history of colon cancer Pre-op examination Bhargavi's thyroiditis Surgical History History of lumpectomy of left breast (07/09/23) H/O abdominoplasty Hx of breast reduction, elective H/O section Family History Paternal Grandfather Prostate cancer Brain cancer Colon cancer Paternal Grandmother Breast cancer Esophageal cancer Lung cancer Paternal Aunt Lung cancer Paternal Aunt Lung cancer Father Pancreatic cancer Esophageal cancer Lung cancer Mother Cervical cancer Social History Household Members: Spouse and Family Patient Tobacco Use Status: Never used Tobacco Second Hand Smoke Exposure: No service: Yes Current occupational status: employed Review of Systems Const All systems reviewed & are unremarkable except as noted in HPI and below Physical Exam Vital Signs: Last Vital Signs Temp 98.2 F 08/05/24 11:23 Pulse 72 08/05/24 11:23 BP 122/78 08/05/24 11:23 Pulse Ox 98 08/05/24 11:23 Oxygen Delivery Method Room Air 08/05/24 11:23 BMI result Body Mass Index 30.3 Assessment & Plan Assessment & Plan (1) URI, acute: Code(s): J06.9 - Acute upper respiratory infection, unspecified Plan: VSS, pt well appearing and PE unremarkable. The patient was prescribed doxycycline for likely bacterial infection, given penicillin allergy concerns, emphasizing sun protection during use. Tessalon Pearls were recommended as needed for cough management, ensuring dosage aligns with work activities. An albuterol inhaler was supplied for probable bronchospasm relief, alongside detailed usage instructions. All medications were to be filled at the [facility]. The management strategy reflects careful consideration of symptom progression, recent contact with an infected individual, and the need to alleviate acute respiratory symptoms. No immediate need for a work excuse was identified. Patient was informed and verbally consented to the use of an ambient scribe for clinic note documentation during this visit Medications: New albuterol sulfate 90 mcg/actuation 2 puffs inhalation Q6H PRN 8.5 grams 0RF shortness of breath or wheezing or cough inhalational spacing device (BreatheRite MDI Spacer) As directed 1 ea 0RF benzonatate 200 mg PO BEDTIME PRN 10 caps 0RF cough doxycycline hyclate 100 mg PO BID 14 tabs 0RF Coding Level of Care Code New Pt Level 3 (47903) Diagnoses URI, acute J06.9
[2024-08-05 11:23] VITALS: BP 122/78; PULSE 72; TEMP 36.8; O2SAT 98; BMI 30.3
--- OUTSIDE RECORDS SUMMARY | 2024-08-05 12:53 | XMS_ITS ---
Author Organization [facility] Address [address] [place] [address] [address] [place] [address] Care Team Providers Care Carpenter Helper Maintenance Name Role Phone DENAE BORDEN, RADHA Primary Care Provider Unav ailable LULU MORALES Unavailable [phone] REASON FOR VISIT HSONO/EB/POLYP ON US Encounters Encounter Location Date Provider Diagnosis [address] [place] [address] 05/09/2024 LULU MORALES Plan Of Treatment Next Appt Details Provider Name:LULU Amin, 12/02/2024 01:00:00 PM, [address] [place] [address], [facility] [address], [place], [address], Progress Notes * HERMELINDO HILARIOOB: 6 (48 yo F)Acc No.[id number]:05/09/2024 Patient:?ANN HILARIO Provider:?LULU MORALES MD :1975???Age:48 Y???Sex:Female D ate:05/09/2024 Address:[address] [place], [place] [id number] Pcp:RADHA PHILIPPE MD Subjective: * Chief Complaints: * ???1. HSONO/EB/POLYP ON US. * Medical History:? Objective: * Vitals:? Assessment: Plan: * Treatment: * Images: Billing Information: * Visit Code:? * Procedure Codes:? * Electronic signature of LULU MORALES MD on 08/05/2024 at 12:52 PM EDT Sign off status: Pending * Provider:?LULU MORALES MD Date:?2024 Generated for Mariam rabago/John/Leroy on:?08/05/2024 12:52 PM EDT
== END 2024-08-05 11:58 | disposition home or self-care (01) ==
PROVIDERS: PCP Student in an Organized Health Care Education/Training Program; Visit Provider Physician Assistant
DX: J06.9 Acute upper respiratory infection, unspecified (principal)

== ENCOUNTER → 2024-08-05 11:11 | Outpatient (BNVA) | payer OTHER, SELFPAY | PROVIDERS: PCP Student in an Organized Health Care Education/Training Program; Visit Provider Physician Assistant ==

== ENCOUNTER 2024-08-19 13:01 | Outpatient (REF) | payer OTHER, SELFPAY ==
--- NOTE | ~2024-08-19 | MR_ITS ---
EXAMINATION: MR BREAST WITHOUT AND WITH CONTRAST, BILATERAL CLINICAL INFORMATION: High risk. History of left breast atypical lobular hyperplasia status post excisional biopsy in 2022. Family history of paternal grandmother with breast cancer. COMPARISON: Breast MRI August 2023 mammograms dating back to 2022. TECHNIQUE: MR imaging of the breast was performed using T1-T2 and fat saturated techniques. Dynamic multiphase imaging was also performed after administration of intravenous gadolinium contrast agent. Computer generated 3-D reconstruction was utilized by the radiologist in the interpretation of this examination. FINDINGS: There is scattered fibroglandular breast tissue with minimal background enhancement. LEFT BREAST: Status post left excisional biopsy changes are stable. No suspicious enhancing masses or areas of nonmass enhancement. No internal mammary or axillary adenopathy. RIGHT BREAST: No suspicious enhancing masses or areas of nonmass enhancement. No internal mammary or axillary adenopathy. Other: 7 mm oval T2 hyperintense mass within the liver series 3 image 70/72. Its characteristics are not well-defined on breast MRI as contrast does not optimize for liver lesions. Possibly seen on the last image MRI breast August 2023 not fully evaluated measuring around 6 mm. as contrast does not optimize for liver lesions. Recommend comparison to possible prior outside abdominal imaging if no priors consider dedicated cross-sectional imaging with liver mass protocol. Limited views of the chest and abdomen are otherwise unremarkable. MR/MR breast BI wo/w con IMPRESSION: No MRI evidence of malignancy bilateral breasts. Status post left excisional biopsy. 7 mm T2 hyperintense oval liver lesion cannot be accurately characterized on breast MRI. Recommend comparison to outside prior abdominal imaging if no comparisons available consider cross-sectional hepatic mass protocol imaging. ASSESSMENT: LEFT BREAST: BI-RADS 2 benign. RIGHT BREAST: BI-RADS 1-Negative RECOMMENDATIONS: Yearly MRI breast screening surveillance. Yearly breast screening. Electronically signed by: Susana Valentin DO 08/22/2024 12:08 PM EDT
[2024-08-19] MEDS: gadobutroL 10 ML VIAL IVPUSH (14:08)
--- OUTSIDE RECORDS SUMMARY | 2024-08-19 14:46 | XMS_ITS ---
Author Organization [facility] Address [address] [place] [address] [address] [place] [address] Care Team Providers Care Electrical Wirer Name Role Phone DENAE BORDEN, RADHA Primary Care Provider Unav ailable LULU MORALES Unavailable [phone] REASON FOR VISIT HSONO/EB/POLYP ON US Encounters Encounter Location Date Provider Diagnosis [address] [place] [address] 05/09/2024 LULU MORALES Plan Of Treatment Next Appt Details Provider Name:LULU Amin, 12/02/2024 01:00:00 PM, [address] [place] [address], [facility] [place] [address], [place], [address], Progress Notes * HERMELINDO HILARIOOB: 6 (48 yo F)Acc No.[id number]:05/09/2024 Patient:?ANN HILARIO Provider:?LULU MORALES MD :1975???Age:48 Y???Sex:Female D ate:05/09/2024 Address:[address] [place], [place] [id number] Pcp:RADHA PHILIPPE MD Subjective: * Chief Complaints: * ???1. HSONO/EB/POLYP ON US. * Medical History:? Objective: * Vitals:? Assessment: Plan: * Treatment: * Images: Billing Information: * Visit Code:? * Procedure Codes:? * Electronic signature of LULU MORALES MD on 08/19/2024 at 02:45 PM EDT Sign off status: Pending * Provider:?LULU MORALES MD Date:?2024 Generated for Mariam rabago/John/Leroy on:?08/19/2024 02:45 PM EDT
== END 2024-08-19 13:02 | disposition home or self-care (01) ==
LOC: HO.MRI 13:01
PROVIDERS: PCP Student in an Organized Health Care Education/Training Program; Visit Provider Surgery
DX: N60.92 Unspecified benign mammary dysplasia of left breast (principal); Z91.89 Other specified personal risk factors, not elsewhere classified; Z80.3 Family history of malignant neoplasm of breast
CPT/HCPCS: 77049; A9585

== ENCOUNTER → 2024-08-19 13:08 | Outpatient (BNV) | payer OTHER, SELFPAY | PROVIDERS: PCP Student in an Organized Health Care Education/Training Program; Visit Provider Internal Medicine | DX: N60.82 Other benign mammary dysplasias of left breast (principal) | CPT/HCPCS: 77049 ==

== ENCOUNTER 2024-09-09 07:09 | Outpatient (REF) | payer OTHER, SELFPAY ==
--- OUTSIDE RECORDS SUMMARY | 2024-05-09 07:00 | XMS_ITS ---
Author Organization [facility] Address [address] [place] [address] Care Team Providers Care Carton Marker Machine Name Role Phone DENAE BORDEN, RADHA Primary Care Provider Unav ailable LULU MORALES Unavailable [phone] REASON FOR VISIT HSONO/EB/POLYP ON US Encounters Encounter Location Date Provider Diagnosis [address] [address] 05/09/2024 LULU MORALES Plan Of Treatment Next Appt Details Provider Name:LULU Amin, 12/02/2024 01:00:00 PM, [address] [place] [address], [facility] [address], [place], [address], Progress Notes * SULAIMANHERMELINDOOB: 6 (48 yo F)Acc No.[id number]:05/09/2024 Patient: Eloy DELBERTANN HOOVER Provider: Shari MORALES MD :1975 A ge:48 Y S ex:Female Date:05/09/2024 Address:[address] [place], [place] [id number] Pcp:RADHA PHILIPPE MD Subjective: * Chief Complaints: * 1 . HSONO/EB/POLYP ON US. * Medical History: Objective: * Vitals: Assessment: Plan: * Treatment: * Images: Billing Information: * Visit Code: * Procedure Codes: * Electronic signature of LULU MORALES MD on 09/09/2024 at 07:12 AM EDT Sign off status: Pending * Provider: Shari MORALES MD Date: 0 05/09/2024 Generated for Mariam rabago/John/Leroy on: 0 09/09/2024 07:12 AM EDT
--- OUTSIDE RECORDS SUMMARY | 2024-09-09 07:12 | XMS_ITS | Data Portability ---
Author Organization [facility], Main Office Address [address] [facility] [facility] [address] [place] [address] Care Team Providers Care Lightning Rod Erector Name Role Phone [facility] Sleep Medi cine CEASAR CHOUDHARY Plastic/Reconstructive Surgeon KHAI JOYCE Sports Medicine EDITH HINOJOSA [employer] [phone] AMBER PIÑA Primary Care Provider LULU MORALES Referring Provider [phone] EVONNE ARECHIGA Referring Provider [phone] Assessment Encounter Date Assessment Date Assessment LastModified [...] Organization Details Last Modified Time Details Appointments None record ed. Lab lipid panel, serum 2024 025 [facility], [address] [place] [address], [place], [address], 14:10:39 BMP, serum or plasma 2024 025 [facility], [address] [place] [address], [address], 5 14:10:39 CBC w/ auto diff 2024 025 [facility], [address] [place] [address], [address], 5 14:10:39 TSH + free T4, serum 2024 025 [facility], [address] [place] [address], [address], 5 14:10:39 vitami n D, 25-hyd stanton, total, serum 2024 025 [facility], [address] [place] [address], [address], 5 14:10:39 BMP, serum or plasma 2023 024 [facility], [address] [place] [address], [address], 4 14:23:17 hepati c functi on panel, serum 2023 024 [facility], [address] [place] [address], [address], 4 14:23:17 lipid panel, blood 2022 023 [facility], [address] [place] [address], [address], 3 11:09:25 BMP, serum or plasma [email or web address] [place] [address] Laboratory, [address] [place] [address], [address], 3 16:08:27 CBC w/ auto diff [email or web address] [place] [address] Laboratory, [address] [place] [address], [place], [address], 3 16:08:27 TSH, serum or plasma [address] [facility], [address] [place] [address], [address], 3 16:08:27 T4, free, serum 2022 023 [email or web address] [facility], [address] [place] [address], [address], 4 10:27:55 vitami n D, 25-hyd stanton, total, serum [address] [facility] [address] [facility], [address] [place] [address], [address], 3 16:08:26 hepati tis C virus Ab, serum [address] [facility] [address] [facility], [address] [place] [address], [place], [address], 3 16:08:27 Referral breast surger y referr al - for remova l of calcif icatio n 2022 023 [email or web address] Evonne Arechiga MD, [address] [place] [address] Dr, [place], [address], 4 14:47:48 Procedures None record ed. Surgeries None record ed. Imaging None record ed. Medication Orders levoth yroxin e 112 mcg capsul e 2024 025 [id number] [facility], [address] [place] [address], [place], [address], 5 07:42:06 escita lopram 10 mg tablet 2024 025 [facility], [address] [place] [address], [address], 5 14:05:43 escita lopram 10 mg tablet 2023 024 [facility], [address] [place] [address], [address], 4 13:47:25 fluoxe amanda 10 mg capsul e 2023 024 [facility], [address] [place], [address], 4 13:47:56 polymy matthew B sulfat e 10,000 unit-t rimeth oprim 1 mg/mL eye drops 2023 024 [facility], [address] [place], [address], 4 14:06:30 Contra ve 8 mg-90 mg tablet ,exten ded releas e 2022 023 [email or web address] [facility], [address] [place] [address], [address], 4 11:02:29 Patient TargetsNo targets recorded. Patient Instructions Encounter Date Encounter Id Patient Instructions Last Modified By Organization Details Last Modified Time 02/20/2023 [id number] Well Visit, Ages 18 to 65: Care Instructions Not available 02/20/2023 16:08:26 medical record request* [email or web address] Not available 02/21/2023 15:52:54 elin's thyroiditis: care instructions Not available 02/20/2023 16:08:26 starting a weigh t loss plan: care instructions Not available 02/20/2023 16:08:31 learning about mood disorders Not available 02/20/2023 16:08:27 06/13/2023 [id number] pinkeye: care instructions pmadden Not available 06/13/2023 11:23:28 Follow up if no improvement or if symptoms worsen. pmadden Not available 06/13/2023 11:16:56 09/05/2023 [id number] Patient understands usual risk, benefits and side effects. Not available 09/05/2023 14:29:56 03/25/2024 [id number] elin's thyroiditis: care instructions Not available 03/25/2024 14:05:38 starting a weigh t loss plan: care instructions Not available 03/25/2024 15:04:34 Reason for Referral Breast Surgery Referral for Atypical lobular hyperplasia of left breast for removal of calcification Referring Physician: Amber Piña, Family Medicine, Encounter Date: 02/20/2023 Results Created Date Observation Date Name Description Value Unit Range Abnormal Flag Note LastModifiedBy Organization Detail LastModifiedTime 01/24/2001/23/2023 stere otact ic breas t biops y (PROC ) No observ ation record ed. [address] [place], [address], 01/23/2023 14:03:39 06/27/19 24 06/27/2023 MAMMO , diagn ostic , digit al, unila teral No observ ation record ed. [address] [place], [address], 06/27/2023 12:01:04 07/27/19 24 07/09/2023 mammo gram, follo w up* No observ ation record ed. [address] (Medical Records) [address] [facility] [place], [address], 07/28/2023 08:56:20 08/01/19 24 08/01/2023 XR, finge r(s) No observ ation record ed. [address] (Medical Records) [facility] [place] [address], 08/01/2023 16:01:25 08/23/19 24 08/14/2023 MRI, breas t, bilat eral, w/o contr ast No observ ation record ed. [address] (Medical Records) [address] [place], [address], 08/23/2023 12:14:44 10/20/19 24 10/20/2023 US, duple x, venou s, lower extre mity No observ ation record ed. [address] (Medical Records) [address] [place], [address], 10/21/2023 14:44:57 01/02/20 24 12/03/2023 US, pelvi s, trans abdom inal + trans vagin al No observ ation record ed. [address] (Medical Records) [address] [place], [address], 01/02/2024 11:25:13 03/03/20 24 02/19/2024 MAMMO , scree hortencia, digit al, bilat eral No observ ation record ed. [address] [place], [address], 03/04/2024 06:55:15 05/31/19 25 05/30/2024 bone densi ty No observ ation record ed. [email or web address] [address] [place], [address], 06/16/2024 10:45:19 08/23/19 25 08/19/2024 MRI, breas t, bilat eral, w/o contr ast No observ ation record ed. [address] (Medical Records) [address] [place], [address], 08/23/2024 16:14:41 Result Notes None recorded. Problems Name Problem SNOMED Code Status Onset Date Resolution Date Notes Provider Name and Address Organization Details Recorded Time Elin thyroidit is 87713376 Active 2016 Not Available [facility] 2 09:53:37 Depressiv e disorder 56991539 Completed 201607/04/2016 Michelle peralta [facility] 8 11:24:10 Depressiv e disorder 03961915 Completed 201607/06/2017 Michelle peralta [facility] 8 11:24:10 Family history of malignant neoplasm 808913803 Completed 201702/20/2023 AMBER PIÑA MD [address], [place], [address] , [facility] 3 06:11:32 Lumbago with sciatica 623740045 Completed 202003/29/2020 Dyan Newman PA-C [address] [facility] [address], [place], [address] , [facility] 1 16:16:07 Degenerat ion of lumbosacr al intervert ebral disc 11449012 Active 2020 Not Available [facility] 2 09:53:37 Acute conjuncti vitis of left eye 94915041502 9105 Completed 202102/20/2023 AMBER PIÑA MD [address], [place], [address] , [facility] 3 06:11:14 Vitamin D deficienc y 41634590 Active 2021 Not Available [facility] 2 09:53:37 Atypical lobular hyperplas ia of left breast 57900648700 056581 Active 2022 AMBER IPÑA MD [address], [place], [address] , [facility] 3 10:14:34 Severe major depressio n, single episode 08397627723 5 Active 2023 Rayne peralta [facility] 14:22:15 Problem Notes None recorded. Procedures Surgical History Date Name Laterality Status Provider Name and Address Organization Details Recorded Time 02/03/20 24 Most Recent Mammogram completed Sharlene May MA [facility] 03/25/2024 13:50:47 07/09/19 24 lumpectomy of breast completed Mary Louise [facility] 07/10/2023 08:50:04 05/06/19 23 Colonoscopy completed Mary Louise [facility] 05/08/2022 09:39:32 06/06/19 22 Mammogram both breasts completed Ling Aparicio [facility] 06/09/2021 12:36:24 05/10/19 22 Date of Last Pap Smear completed Sharlene May MA [facility] 02/20/2023 14:20:29 05/05/19 20 reduction plasty of bilateral breasts completed Sherri Salazar [facility] 05/09/2019 09:52:35 05/05/19 20 abdominoplasty completed Sherri Salazar [facility] 05/09/2019 09:52:50 05/05/19 20 Other completed Sharlene May MA [facility] 05/05/2021 15:24:13 08/13/19 07 Caesarean Section completed Sharlene May MA [facility] 07/04/2016 10:47:14 12/12/19 04 Caesarean Section completed Sharlene May MA [facility] 07/04/2016 10:47:14 Breast Biopsy completed Sharlene May MA [facility] 05/05/2021 15:24:13 Breast Surgery completed Sharlene May MA [facility] 05/05/2021 15:24:13 Imaging Results None recorded. Procedure Notes None recorded. Medical Equipment None Reported. Allergies Allergen ID Allergen Name Allergen Category Reaction Reaction Severity Criticality Documentation Date Start Date Code Code System Note Provider Name and Address Organization Details Recorded Time 44836 Product containin g penicilli n (product) medicatio n hives severe Not available 07/04/2016 71928 8001 SNOMED NELSON Topete, [facility] 7 10:46:23 51570 vancomyci n medicatio n anaphylax is Not available [facility] 09/05/2023 15077 RxNorm Anju UlloajeffedieMIHIR, [facility] 4 14:06:03 Medications Name Sig Start Date Stop Date Status Note LastModified by Organization Details LastModified Time cyclobenz aprine 10 mg tablet TAKE 1 TABLET BY MOUTH EVERY DAY FOR 7 DAYS 04/02 completed Not Available Not Available Not Available clindamyc in HCl 300 mg capsule 03/08 completed Not Available Not Available Not Available azithromy kelli 250 mg tablet 12/05 completed Not Available Not Available Not Available benzonata te 200 mg capsule TAKE 1 CAPSULE BY MOUTH AT BEDTIME NEEDED FOR COUGH active Not Available Not Available No t Available tretinoin 0.025 % topical cream apply thin layer active Not Available Not Available No t Available meloxicam 15 mg tablet TAKE 1 TABLET BY MOUTH EVERY DAY 02/20 completed Not Available Not Available Not Available sulfameth oxazole 800 mg-trimet hoprim 160 mg tablet 09/04 completed Not Available Not Available Not Available levothyro xine 25 mcg tablet active Not Available Not Available Not Available alprazola m 0.5 mg tablet 12/05 completed Not Available Not Available Not Available alprazola m 0.25 mg tablet TAKE 1 TABLET BY MOUTH EVERY 15 MINUTES PRIOR TO PROCEDUR E 10/12 completed Not Available Not Available Not Available lorazepam 0.5 mg tablet active Not Available Not Available Not Available misoprost ol 200 mcg tablet 1 po pre op active Not Available Not Available No t Available polymyxin B sulfate 10,000 unit-trim ethoprim 1 mg/mL eye drops INSTILL 1 DROP INTO AFFECTED EYE 6 TIMES A DAY FOR 7 DAYS 09/04 completed Not Available Not Available Not Available fluoxetin e 10 mg capsule Take 1 capsule every day by oral route for 90 days. 11/06 completed Not Available Not Available Not Available betametha sone dipropion ate 0.05 % topical cream 12/05 completed Not Available Not Available Not Available omeprazol e 20 mg capsule,d elayed release Take 1 capsule every day by oral route for 30 days. 12/05 completed Not Available Not Available Not Available hydroxyzi ne HCl 25 mg tablet TAKE 1 TABLET BY MOUTH EVERY 6 TO 8 HOURS NEEDED FOR ITCHINES S 03/08 completed Not Available Not Available Not Available ergocalci ferol (vitamin D2) 1,250 mcg (50,000 unit) capsule TAKE 1 CAPSULE BY MOUTH ONE TIME PER WEEK 02/26 completed Not Available Not Available Not Available Levoxyl 112 mcg tablet Take 1 tablet every day by oral route for 90 days. 2024 active Not Available Not Available Not Avai lable ibuprofen 600 mg tablet TAKE 1 TABLET BY MOUTH FOUR TIMES A DAY FOR 10 DAYS 04/02 completed Not Available Not Available Not Available estradiol 0.01% (0.1 mg/gram) vaginal cream INSERT 1 GRAM VAGINALL Y TWICE WEEKLY 90 DAYS active Not Available Not Available No t Available methylpre dnisolone 4 mg tablets in a dose pack TAKE 6 TABLETS ON DAY 1 DIRECTED ON PACKAGE AND DECREASE BY 1 TAB EACH DAY FOR A TOTAL OF 6 DAYS 04/26 completed Not Available Not Available Not Available albuterol sulfate HFA 90 mcg/actua tion aerosol inhaler INHALE 2 PUFFS BY MOUTH EVERY 6HRS NEEDED FOR SHORTNES S OF BREATH OR WHEEZING AND COUGH active Not Available Not Available No t Available doxycycli ne hyclate 100 mg tablet TAKE 1 TABLET BY MOUTH TWICE A DAY active Not Available Not Available No t Available tamoxifen 20 mg tablet Take 1 tablet every day by oral route at bedtime for 90 days. active Not Available Not Available No t Available diazepam 5 mg tablet 03/08 completed Not Available Not Available Not Available oxycodone 5 mg tablet 09/04 completed Not Available Not Available Not Available escitalop susu 10 mg tablet Take 1 tablet every day by oral route as directed for 90 days. 2024 active Not Available Not Available Not Avai lable metronida zole 1 % topical gel apply thin layer active Not Available Not Available No t Available chlorhexi dine gluconate 0.12 % mouthwash 12/05 completed Not Available Not Available Not Available levothyro xine 112 mcg capsule Take 1 capsule every day by oral route as directed for 90 days. 2024 active Tirosent brand Not Available Not Available Not Available Contrave 8 mg-90 mg tablet,ex tended release Take 2 tablets twice a day by oral route for 30 days. 06/12 completed Not Available Not Available Not Available Sutab 1.479-0.1 88-0.225 gram tablet TAKE DIRECTED PER PACKAGIN G-NOT CVD BY INS 10/05 completed Not Available Not Available Not Available Flowflex COVID-19 Antigen Home Test kit FOLLOW INSTRUCT IONS INCLUDED WITH THE PACKAGE. 10/07 completed Not Available Not Available Not Available Vitals Date Recorded Body height Body mass index (BMI) Body weight Oxygen saturation Oxygen saturation in Arterial blood by Pulse oximetry Heart rate Body temperature Systolic And Diastolic Provider Name and Address Organization Details Last Updated DateTime 5 167.64 cm 30.4 kg/m2 51602.1 7 g 99 % 99 % 73 /min 98.2 [degF] 116/68 mm[Hg] Sharlene May MA [facility] 5 13:48:36 Date Recorded Body height Body mass index (BMI) Body weight Heart rate Oxygen saturation Oxygen saturation in Arterial blood by Pulse oximetry Body temperature Systolic And Diastolic Provider Name and Address Organization Details Last Updated DateTime 4 167.64 cm 30.2 kg/m2 14569.7 7 g 67 /min 98 % 98 % 98.3 [degF] 110/68 mm[Hg] Jeanette preston [facility] 4 11:02:01 Date Recorded Body height Body mass index (BMI) Body weight Heart rate Oxygen saturation Oxygen saturation in Arterial blood by Pulse oximetry Body temperature Systolic And Diastolic Provider Name and Address Organization Details Last Updated DateTime 4 167.64 cm 30.9 kg/m2 30871.5 4 g 70 /min 99 % 99 % 98.3 [degF] 128/85 mm[Hg] Anju Hagen L[facility] 4 14:05:28 Date Recorded Body height Body mass index (BMI) Body weight Heart rate Oxygen saturation Oxygen saturation in Arterial blood by Pulse oximetry Body temperature Systolic And Diastolic Provider Name and Address Organization Details Last Updated DateTime 4 167.64 cm 31.2 kg/m2 64294.3 3 g 80 /min 97 % 97 % 98.3 [degF] 113/69 mm[Hg] Jeanette preston MA [facility] 4 13:02:11 Date Recorded Body height Body mass index (BMI) Body weight Oxygen saturation Oxygen saturation in Arterial blood by Pulse oximetry Heart rate Body temperature Systolic And Diastolic Provider Name and Address Organization Details Last Updated DateTime 3 167.64 cm 30.1 kg/m2 49833.9 8 g 98 % 98 % 76 /min 98.1 [degF] 106/65 mm[Hg] Sharlene May MA [facility] 3 14:18:24 Social History Question Answer Notes LastModified by Organizat ion Details LastModified Time Tobacco Smoking Status [facility] 10:47[facility]06 Is Blood Transfusion Acceptable In An Emergency? Yes Information not available 07/04/2016 What Is Your Level Of Caffeine Consumption? None [email or web address] Information not available 07/04/2016 How Much Tobacco Do You Chew? None [email or web address] Information not available 07/04/2016 What Type Of Diet Are You Following? REGULAR Information not available 07/04/2016 Which Illicit Or Recreational Drugs Have You Used? Never [email or web address] Information not available 07/04/2016 Live Alone Or With Others? With Others [email or web address] Information not available 02/20/2023 Do You Take Precautions To Prevent Distracted Driving? Yes [email or web address] Information not available 07/04/2016 How Often Do You Need To Have Someone Help You When You Read Instructions, Pamphlets, Or Other Written Material From Your Doctor Or Pharmacy? Never Information not available 07/04/2016 Have You Served In The ? No [email or web address] Information not available 07/04/2016 Have You Or [...] Provider Or Emergency Responder? Yes Works As [employer] [email or web address] Information not available 04/02/2020 To The Best Of Your Knowledge Have You Been In Close Proximity To Any Individual Who Tested Positive For COVID-19? No [email or web address] Information not available 04/02/2020 *AWV ONLY* Are You Presently Prescribed Opioid Medication By PCP Or Specialist? If YES -Provider Assess The Benefit For Other, Non-opioid Pain Therapies Instead, Even If The Patient Does Not Have OUD But Is Possibly At Risk. No [email or web address] Information not available 05/05/2021 Have You Recently Traveled To A COVID-19 High Risk Area Or Gathering In The Last 10 Days? No [email or web address] Information not available 04/02/2020 What Was The Date Of Your Most Recent Tobacco Screening? 03/25/2024 Information not available 03/25/2024 How Many Children Do You Have? 2 Elzbieta Information not available 11/07/2023 Do You Use Protection During Sex? No [email or web address] Information not available 07/04/2016 Do You Use Your Seat Belt Or Car Seat Routinely? Yes [email or web address] Information not available 05/05/2021 Seat Belts Used Routinely Yes [email or web address] Information not available 02/20/2023 Are You Sexually Active? Yes [email or web address] Information not available 07/04/2016 Smoke Alarm In Home Yes Information not available 02/20/2023 Do You Have Smoke And Carbon Monoxide Detectors In Your Home? Yes [email or web address] Information not available 05/05/2021 Are You Passively Exposed To Smoke? No Information not available 07/04/2016 How Much Tobacco Do You Smoke? No [email or web address] Information not available 02/20/2023 Do You Use Sunscreen Routinely? Yes Information not available 07/04/2016 Sex: Unknown Functional Status Question Answer Note LastModified by Organizat ion Details LastModified Time Do you use any illicit or recreational drugs? No Information not available 11/07/2023 Do you or have you ever used any other forms of tobacco or nicotine? No Information not available 11/07/2023 What is your level of alcohol consumption? None Information not available 07/04/2016 Do you or have you ever used smokeless tobacco? Never used smokeless tobacco [email or web address] Information not available 12/05/2018 Are you currently employed? Yes [email or web address] Information not available 07/04/2016 Are you able to walk? YESWOREST [email or web address] Information not available 02/20/2023 Are you able to care for yourself? 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 Never used electronic cigarettes [email or web address] Information not available 02/20/2023 What is your exercise level? Occasional [email or web address] Information not available 07/04/2016 Mental Status None recorded. Family History Relationship Description Onset Age of this Age Resolved Age Notes LastModified by Organization Details LastModified Time Paternal Grandfather Harmful pattern of use of alcohol [email or web address] Not available 07/04 10:46:44 Paternal Grandfather Malignant neoplasm of lung [email or web address] Not available 07/04 10:46:44 Paternal Grandfather Malignant tumor of colon [email or web address] Not available 07/04 10:46:44 Maternal Grandmother Alzheimer's disease [email or web address] Not available 07/04 10:46:44 Maternal Grandmother Hypercholest erolemia [email or web address] Not available 07/04 10:46:44 Maternal Grandmother Disorder of thyroid gland [email or web address] Not available 07/04 10:46:44 Maternal Grandmother Arthritis [email or web address] Not available 0 07/04/2016 10:46:44 Maternal Grandmother Obesity Not available 04/2016 10:46:44 Maternal Grandmother Diabetes mellitus [email or web address] Not available 07/04 10:46:44 Mother Malignant tumor of cervix [email or web address] Not available 05/05 15:23:56 Paternal Grandmother Harmful pattern of use of alcohol [email or web address] Not available 05/05 15:23:56 Paternal Grandmother Malignant tumor of breast [email or web address] Not available 07/04 10:46:44 Paternal Grandmother Malignant neoplasm of lung [email or web address] Not available 07/04 10:46:44 Son Attention deficit hyperactivit y disorder 8 [email or web address] Not available 02/02 14:13:19 Son Anxiety disorder 10 Not available 02/20 14:13:19 Maternal Aunt Asthma Not av ailable 07/04/2016 10:46:44 Maternal Aunt Depressive disorder suicid e in matern al cousin [email or web address] enz Not available 07/06/2017 11:26:53 Father Chronic obstructive pulmonary disease [email or web address] Not available 07/04 10:46:44 Father Hypercholest erolemia [email or web address] Not available 05/05 15:23:56 Father Diabetes mellitus [email or web address] Not available 05/05 15:23:56 Father Malignant neoplasm of lung [email or web address] Not available 07/04 10:46:44 Father Harmful pattern of use of alcohol [email or web address] Not available 05/05 15:23:56 Father Hypertensive disorder [email or web address] Not available 07/04 10:46:44 Father Allergy [email or web address] Not availabl e 02/20/2023 14:13:19 Father Malignant tumor of pancreas 58 59 [email or web address] Not available 07/04 10:50:21 Maternal Grandfather Chronic obstructive pulmonary disease [email or web address] Not available 05/05 15:23:56 Paternal Aunt Harmful pattern of use of alcohol [email or web address] Not available 05/05 15:23:56 Paternal Aunt Harmful pattern of use of alcohol [email or web address] Not available 05/05 15:23:56 Paternal Aunt Malignant tumor of breast [email or web address] Not available 05/05 15:23:56 Paternal Aunt Malignant neoplasm of lung [email or web address] Not available 07/04 10:46:44 Paternal Aunt Malignant neoplasm of lung [email or web address] Not available 05/05 15:23:56 Paternal Uncle Hypercholest erolemia [email or web address] Not available 05/05 15:23:56 Paternal Uncle Diabetes mellitus [email or web address] Not available 05/05 15:23:56 Medical History Condition Response Gout N Other N Kidney Stones N Blood Diseases N Hyperthyroidism N Breast Cancer N Hypothyroidism Y Lung Disease N Depression Y COPD N Defects or Inherited Disease N Anesthesia Complications N Headaches/Migraines Y Anxiety Disorder Y Varicose Veins N Obesity Y Vision or Eye Problems N [...] Last Pap Smear 05/09/2021 Most Recent Mammogram 02/03/2024 Obstetrics History GPAL:G 0 P 0 0 0 0 Immunizations Vaccine Type Date Status Note Provider Nam e and Address Organization Details Recorded Time DTaP 6 completed Mary peralta [facility] 01/31/2022 12:27:22 DTaP 6 completed Mary peralta [facility] 01/31/2022 12:27:22 DTaP 7 completed Mary peralta [facility] 01/31/2022 12:27:21 DTaP 8 completed Mary peralta [facility] 01/31/2022 12:27:22 DTaP 2 completed Mary perlata [facility] 01/31/2022 12:27:22 Td (adult) 2 completed Mary peralta [facility] 01/31/2022 12:27:22 OPV 6 completed Mary Louise null, [facility] 01/31/2022 12:27:22 OPV 6 completed Mary Louise null, [facility] 01/31/2022 12:27:21 OPV 7 completed Mary Louise null, [facility] 01/31/2022 12:27:22 OPV 8 completed Mary Louise null, [facility] 01/31/2022 12:27:21 OPV 2 completed Mary Louise null, [facility] 01/31/2022 12:27:22 MMR 7 completed Mary Louise null, [facility] 01/31/2022 12:27:22 MMR 0 completed Mary Louise null, [facility] 01/31/2022 12:27:22 varicella 4 completed Mary Louise null, [facility] 01/31/2022 12:27:22 Hep B, adult 6 completed Mary Louise null, [facility] 01/31/2022 12:27:22 Hep B, adult 5 completed Mary Louise null, [facility] 01/31/2022 12:27:21 Hep B, adult 6 completed Mary Louise null, [facility] 01/31/2022 12:27:21 Tdap 3 completed Mary Louise null, [facility] 01/31/2022 12:27:21 Influenza, split virus, quadrivalent, preservative 7 completed Mary Louise null, [facility] 01/31/2022 12:27:21 Influenza, split virus, quadrivalent, preservative 9 completed Mary Louise null, [facility] 01/31/2022 12:27:22 Influenza, split virus, quadrivalent, preservative 9 completed Sharlene May MA null, [facility] 02/20/2023 14:18:46 Influenza, split virus, quadrivalent, preservative 0 completed Mary Louise null, [facility] 01/31/2022 12:27:22 Influenza, split virus, quadrivalent, preservative 1 completed Mary Louise null, [facility] 01/31/2022 12:27:22 Influenza, split virus, trivalent, preservative 3 [facility]:27[facility]21 Influenza, split virus, trivalent, preservative 3 [facility] 12:27:21 Influenza, split virus, quadrivalent, preservative 7 completed Mary Louise null, [facility] 01/31/2022 12:27:21 Influenza, MDCK, quadrivalent, PF 8 completed [facility] 12:27:22 Influenza, split virus, quadrivalent, PF 1 completed [facility] 12:27:22 COVID-19, mRNA, LNP-S, PF, 100 mcg/0.5mL dose or 50 mcg/0.25mL dose 0 completed Mary Louise null, [facility] 01/31/2022 12:27:22 COVID-19, mRNA, LNP-S, PF, 100 mcg/0.5mL dose or 50 mcg/0.25mL dose 1 [facility] 12:27:22 Influenza, split virus, trivalent, preservative 4 completed Mary Louise null, [facility] 01/31/2022 12:27:22 Influenza, split virus, trivalent, preservative 5 completed Mary Louise null, [facility] 01/31/2022 12:27:22 COVID-19, mRNA, LNP-S, bivalent, PF, 50 mcg/0.5 mL or 25mcg/0.25 mL dose 2 completed Sharlene May [place] null, [facility] 2022 09:19:17 Influenza, split virus, quadrivalent, PF 2 completed Sharlene May [place] null, [facility] 02/20/2023 14:18:46 COVID-19, mRNA, LNP-S, PF, 30 mcg/0.3 mL dose 1 completed Sharlene May [place] null, [facility] 2022 09:19:17 Tdap 3 completed Sharlene May MA null, [facility] 02/20/2023 14:18:46 COVID-19, mRNA, LNP-S, PF, 100 mcg/0.5mL dose or 50 mcg/0.25mL dose 1 completed Sharlene May [place] null, [facility] 02/20/2023 14:18:46 COVID-19, mRNA, LNP-S, PF, 100 mcg/0.5mL dose or 50 mcg/0.25mL dose 1 completed Jeanette Cortez s [place] null, [facility] 06/13/2023 10:56:34 COVID-19, mRNA, LNP-S, PF, 30 mcg/0.3 mL dose 0 completed Sharlene May [place] null, [facility] 02/20/2023 14:18:46 Influenza, MDCK, quadrivalent, PF 4 completed Anju Hagen LPN null, [facility] 09/05/2023 14:05:43 COVID-19, mRNA, LNP-S, PF, alyssa-sucrose, 30 mcg/0.3 mL 4 completed Anju Hagen LPN null, [facility] 09/05/2023 14:05:43 Influenza, MDCK, trivalent, PF 5 completed Mary Louise null, [facility] 03/31/2024 13:01:45 Past Encounters Encounter ID Performer Location Encounter Start Date Encounter Closed Date Diagnosis/Indication Diagnosis SNOMED-CT Code Diagnosis ICD10 Code Diagnosis Note [id number] Michelle dean MD Main Office [address] [place] [address] 07/04/2016 10:33:00 07/04/2016 11:53:47 Adult health examination 643929391 Z00.00 could eat better, thinks less sweets and do more veggies. is active, would liek to lose weight, utd on screening Hypothyroidism 87220795 E03.9 nl level recently. Elin thyroiditis 21 316948 E06.3 treated by manager philosophy Single jing or depressive episode, in full remission 696189932 F32.5 pt weaned off zoloft last year, had been on for life change when she moved up here and 2 episodes of post depression , feels well. exercises 2-3 times a week, walking, videos Hypercholesterolemia 136 48868 E78.2 check fasting Fatigue 23643101 R53.83 Sensation of blocked ear 073793270 H93.299 left ear canal is blocked with cerumen Family his tory of breast cancer 623680148 Z80.3 We spoke about pts family of maternal aunt and MGM with breast cancer at 60, father with pancreatic cancer, I gave pt the number for genetic screening for family cancer syndrome, she will choose if she wants to pursue this, no first degree relative with breast cancer, no role for BRCA testing that I see [id number] Frandy Newman PA-C Main Office [address] [facility] [address] 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 will give trial of neoprene sleeve, aleve, ice p activity - call if worse. [id number] Michelle dean MD Main Office [address] [facility] [address] [place] [address] 07/06/2017 10:24:02 07/06/2017 11:56:04 Adult health examination 635530486 Z00.00 could eat better, thinks less sweets and do more veggies. is active, would liek to lose weight, utd on screening Hypercholesterolemia 136 48313 E78.2 check fasting Fatigue 08990506 R53.83 check labs Elin thyroiditis 21 355507 E06.3 treated by endo Hypothyroidism 87095085 E03.9 nl level recently. Mammography abnormal 168 308965 R92.8 had bx, Dr Barrett orders her mammograms and is her manager philosophy Gastroesop hageal reflux disease 850175262 K21.9 epigastric burning, will start med Major depr ession single episode, in partial remission 72814608 F32.4 pt will set up counseling and has sleep disruption , only gets 4 hours a night, interrupte d. Family his tory of malignant neoplasm 210140481 Z80.9 pt will get info form uncles testing for genetic predisposi tion to cancer, we will discuss at followup, she is considerin g seeing genetic testing/co unseling [id number] Michelle dean MD Main Office [address] [facility] [address] [place] [address] 12/05/2018 08:15:41 12/05/2018 09:50:55 Adult health examination 102920982 Z00.00 continue exercise and resistance training. utd with screening Anti-nucle ar factor detected 658582918 R76.8 check DS DNA , saw rheum and he felt not from SLE, more of a false positive, symptoms are fatigue, hair thiinning adn joint pain but all improving Pain of mu ltiple joints 80462840 M25.50 check albs, dx with OA of knees and bursitis of hips by rheum, continue exercise and stretching Fatigue 79296128 R53.83 sleep eval [id number] Michelle dean MD Main Office [address] [address] [place] [address] 03/12/2019 09:39:13 03/12/2019 10:28:59 Diarrhea 42660999 R19.7 talked about low fodmap eating and gave info Low back pain 652427695 M54.5 from over stretching , return if worsens or any weakness, strength is normal [id number] Jose Jiang MD [address] [address] [place] [address] 03/08/2020 14:15:15 03/08/2020 15:23:02 Lumbago with sciatica 343192535 M54.40 advised to be seen in office tomorrow for the exam. STart muscle relaxant at HS today and xrays of the LS spine today. Continue icing and motrin 600 q 6 hrs. Pain in coccyx 80843252 M53.3 [id number] Jose Jiang MD Main Office [address] [place] [address] [place] [address] 03/09/2020 08:31:18 03/09/2020 09:53:52 Lumbago with sciatica 555687066 M54.40 advised to be seen in office tomorrow for the exam. STart muscle relaxant at HS today and xrays of the LS spine today. Continue icing and motrin 600 q 6 hrs. [id number] Michelle dean MD Main Office [address] [place] [address] [place] [address] 04/02/2020 14:48:12 04/02/2020 15:51:52 Adult health examination 094189270 Z00.00 continue exercise and resistance training. set up mammogram and pap smear Degenerati on of lumbosacral intervertebral disc 40733223 M51.37 Screening for malignant neoplasm of cervix 619091477 Z12.4 Screening for malignant neoplasm of breast 338667177 Z12.39 Low back pain 834049393 M54.5 from over stretching , return if worsens or any weakness, strength is normal [id number] Michelle dean MD [address] [place] [address] 04/26/2020 13:41:31 04/27/2020 11:55:07 Acute conjunctivitis 22120073 H10.33 SYMPTOMS: which eye(s)? bilateral redness? yes discharge? yes crusting or matting on waking? yes exposure to someone with conjunctiv itis? no POSSIBLE CONTRAINDI CATIONS TO TELEPHONE TREATMENT: eye pain? no blurry vision? no recent treatment (within 1 month)? no trauma? no lupus or rheumatoid arthritis? PROVIDER ACTION Reviewed nursing notes? Recommende d action Start drops tonight, cool compresses as needed, no sharing towels, call if not improving in 1-2 days, sooner if worse or eye pain Antibiotic treatment [id number] Michelle dean MD Main Office [address] [address] 05/05/2021 15:23:02 05/05/2021 16:06:57 Adult health examination 246874549 Z00.00 pt is due for mammogram, order ptu and pt to arrange, will refer for colonoscop y, is exercising Elin thyroiditis 21 382889 E06.3 check labs, cotninu med Body mass index 25-29 - overweight 450330646 Z68.29 Screening for malignant neoplasm of colon 902532669 Z12.11 pt will make appt with GI Family his tory of malignant neoplasm 688186770 Z80.9 pt will get info form uncles testing for genetic predisposi tion to cancer, we will discuss at followup, she is yina vernon seeing genetic testing/co unseling Screening for malignant neoplasm of breast 828892258 Z12.39 pt ot arrange Mild memor y disturbance 351593839 R41.3 brought up at end of visit, word finding, some dates, not progressin g, will get labs and refer for neuropsych testing she is interested Overweight 430077930 E66 .3 [id number] Rip Pineda MD [facility] [address] [facility] [address] [place] [address] 10/12/2021 09:12:15 10/12/2021 15:48:39 Red eye 684097325 H11.432 SYMPTOMS:w hich eye(s)? leftrednes s? yesdischar ge? yescrustin g or matting on waking? yesexposur e to someone with conjunctiv itis? no POSSIBLE CONTRAINDI CATIONS TO TELEPHONE TREATMENT: eye pain? yesblurry vision? yesrecent treatment (within 1 month)? notrauma? nolupus or rheumatoid arthritis? no PROVIDER ACTION Reviewed nursing notes? yesRecomme nded action needs appointmen t Antibiotic treatment other (provider will prescribe) Acute conj unctivitis of left eye 8169514198 04539 H10.32 Warm compresses and wipe away crust, wash hands prior to touching eyes/ drops. Polytrim eye drops every 6 hours as directed x 7-10 days. if sx worsen or are not better please call/ return. [id number] Cici Murillo MD Main Office [address] [address] 2022 09:06:43 2022 10:10:34 Laceration of finger of right hand 8520591056 1503717 S61.210A Wound is well-heale d with some scar tissue. Advised the patient she can put some Vaseline to it. Reassuranc e provided. [id number] AMBER PIÑA MD Main Office [address] [address] 02/20/2023 14:00:13 02/20/2023 14:52:53 Adult health examination 907129798 Z00.00 Health Maintenanc e FemaleA) Patient was counseled on healthy diet, exercise and nutrition due to BMI of 30.1 B) ScreeningL ast Mammogram: start at age 50 stop at 74Date: 01/09/2023R esult: BIRADS-4Ne xt: s/p biospy, will need surgery Last Pap smear: start at age 21 to age 65Date: Results : ???Next: may 2021, will obtain records Last Colonoscop y: start at age 45-75Date: 05/05/2022Re sult: polyp (will need to get path result)Nex t: 10 years Last DEXA scan:Date: due at 65Result: ??? C) Vaccines:I nfluenza: will getTdAP: 09/29/2022Z melanie: due at 42ZOS45: due at 65GDZC35: due at 29KEZ38:PADMINI V15:COVID: 02/26/2020 , 03/25/2020, 01/21/2021 , 01/05/2022 D) Routine blood work orderedE) Updated patient's history RTC in one year for annual exam or sooner if any acute complaints Atypical l obular hyperplasia of left breast 7061792744 6088531 N60.92 - diagnosed on biospy done on 01/24- pt was seen by breast surgery at [facility] on 02/14/23> recommende d tamoxifen and surgical consultati on for removal of cells- pt referred to surgery Degenerati on of lumbosacral intervertebral disc 01783352 M51.37 - currently under good control Vitamin D deficiency 347 76664 E55.9 - will get levels- pt has completed the once weekly medication not currently on any supplement ation- recommende d taking a 1000 units daily Elin thyroiditis 21 165224 E06.3 - will check levels- c/w levothyrox ine 112mcg at this time Fatigue 85494836 R53.83 Z00.00 Hyperlipidemia 28697919 E78.5 Z00.00 Hepatitis C screening 41 1671736 Z11.59 Mood disorder 02391227 F 39 - PHQ-9 core of 11- pt is very stressed due to her weight and most recent breast cancer finding- will continue to monitor Body mass index 30+ - obesity 034798370 Z68.30 E66.9 - BMI of 30.1- Cut down on (limit) fast foods, sweets, and processed snack foods.- Limit alcohol intake to no more than 1- 2 drinks a day for men. One drink equals 12 oz of beer, 5 oz of wine, or 1 oz of hard liquor.- Keep a weight loss journal and keep track of the food and portions that you eat.- The exercise that you do- 4 times a week or 150 minutes cumulative of moderate exercise recommende d. Member is 18 years of age and older. The member has a BMI greater than 30KG/m2. The member has engaged in a trial of behavioral modificati on, dietary restrictio ns, and exercise for least 3 months. The member will continue to engage in behavioral modificati on, dietary restrictio ns, and exercise while on Contrave. The member will not be taking Contrave with any other weight loss agent or any other agents.> will order contrave after patient lets know the pharmacy. [id number] Srinivas Miller MD Main Office [address] [address] [place] [address] 06/13/2023 10:38:03 06/13/2023 11:27:28 Acute conjunctivitis 98341059 H10.30 SYMPTOMS: which eye(s)? left redness? yes discharge? yes crusting or matting on waking? yes exposure to someone with conjunctiv itis? no POSSIBLE CONTRAINDI CATIONS TO TELEPHONE TREATMENT: eye pain? yes blurry vision? yes yesterday recent treatment (within 1 month)? no trauma? no lupus or rheumatoid arthritis? no PROVIDER ACTION Reviewed nursing notes? Recommende d action Antibiotic treatment [id number] Rip Pineda MD Main Office [address] [place] [address] 09/05/2023 13:48:37 09/05/2023 14:26:01 Severe major depression, single episode 9020172618 05 F32.2 PHQ-9 score of 23-has hx of PPD with her two pregnancie s and was on zoloft for multiple years which provided relief-rec ently has had increased anxiety/de pression related to family member dx of terminal illness-pt is interested in going back on SSRI; denies of any SI or HI-will obtain LFTs and BMP-discus sed proper use (to take 1 hr afer levothyrox ine), side effects, and benefits-w ill start pt on fluoxetine 10mg QD and f/u in 4 weeks [id number] Rip Pineda MD Main Office [address] [address] [place] [address] 11/07/2023 12:47:52 11/07/2023 13:15:04 Severe major depression, single episode 3952943152 05 F32.2 PHQ-9 score of 0 and GAD7 score of 0-has hx of PPD with her two pregnancie s and was on zoloft for multiple years which provided relief-rec ently has had increased anxiety/de pression related to family member dx of terminal illness-re cently started tamoxifen 20mg-will taper off of fluoxetine over the next 2 weeks as there are known adverse effects to this medication decreasing the effectiven ess of tamoxifen- will have pt start lexapro once taper is complete and f/u in 6 weeks [id number] AMBER PIÑA MD Main Office [address] [facility] [place], [place] [address] 03/25/2024 13:30:29 03/25/2024 14:12:15 Adult health examination 625829323 Z00.00 Health Maintenanc e FemaleA) Patient was counseled on healthy diet, exercise and nutrition due to BMI of 30.4 B) ScreeningL ast Mammogram: start at age 50 stop at 74Date: 02/26/2024 Result: BIRADS-2Ne xt: 02/2025 Last Pap smear: start at age 21 to age 65Date: 05/23/2022R esults: HPV negative, no atypical cellsNext: 5 years Last Colonoscop y: start at age 45-75Date: 05/05/2022Re sult: polyp (will need to get path result)Nex t: 10 years Last DEXA scan:Date: due at 65Result: pt will check with Iv[facility] if they can do bone density and will order after patient sends MD message C) Vaccines:I nfluenza: not this yearTdAP: 09/29/2022Z melanie: due at 05PSL94: due at 04UFFF81: due at 15CIH71:PC V15:COVID: 02/26/2020 , 03/25/2020, 01/21/2021 , 01/05/2022, 03/10/2023 D) Routine blood work orderedE) Updated patient's history RTC in one year for annual exam or sooner if any acute complaints Atypical l obular hyperplasia of left breast 5771084899 9903477 N60.92 - diagnosed on biospy done on 01/24- pt was seen by breast surgery at [facility] on 03/11/2024> currently on tamoxifen, pt will be on the medication for 5 years Elin thyroiditis 21 019539 E06.3 - will check levels- c/w levothyrox ine 112mcg at this time Severe jing or depression, single episode 7139879387 05 F32.2 - PHQ-9 score 0- c/w escitalopr am 10mg QD> does notice improvemen t on it, will consider stopping in the summer time- denies SI/HI- is[place] vernon provided Vitamin D deficiency 347 55965 E55.9 - will get levels- pt has completed the once weekly medication not currently on any supplement ation- recommende d taking a 1000 units daily Fatigue 53649759 R53.83 Z00.00 Hyperlipidemia 89810249 E78.5 Z00.00 FASTING Body mass index 30+ - obesity 011955219 Z68.30 E66.9 - BMI of 30.4- Cut down on (limit) fast foods, sweets, and processed snack foods.- Limit alcohol intake to no more than 1- 2 drinks a day for men. One drink equals 12 oz of beer, 5 oz of wine, or 1 oz of hard liquor.- Keep a weight loss journal and keep track of the food and portions that you eat.- The exercise that you do- 4 times a week or 150 minutes cumulative of moderate exercise recommende d. Health Concerns Section Related Observation LastModified by Organization Detai ls LastModified Time None Recorded Concern Status LastModified by Organization Details LastModified Time None Recorded Advance Directives Directive None Recorded Payers Insurance Date Sequence Insurance Name Policy Number Policy Grant Covered Member ID Grant Member ID Guarantor Name 09/15/2022 1 [facility] [id number] Lorri Martin Jacqueline [id number] Lorri Phillips 09/15/2022 1 [facility] Lorri Khanurque [id number] Lorri Phillips 08/05/2024 1 [employer] [facility] (EPO) [id number] Lorri Martin Jacqueline [id number] Lorri Phillips Notes Date Note Type Note Provider Name and Address Organization Details Recorded Time 02/20/2023 text/html Lorri Jacqueline i s a 47 year old F who presented to the clinic for her annual exam. Pt denies any emergency room visits or hospitalizations this year. Pt this year did have an abnormal breast imaging which needed a biospy. Pathology showed atypical lobular hyperplasia. Pt wanted to seek advise at [facility] before proceeding with any procedure. [...] walking 1 hour AMBER PIÑA MD [address] [address], [place], [address], [facility] 02/20/2023 16:47:28 06/13/2023 text/html Patient c/o left eye redness, itching, and discomfort x 4 days.+ am crustingno use of warm compresses Frandy Newman PA-C [address] [address], [place], [address], [facility] 06/13/2023 11:27:41 09/05/2023 text/html Lorri is a [...] of any SI or HI. Rayne peralta, [facility] 09/18/2023 14:23:22 11/07/2023 text/html Lorri is a [...] of any SI or HI. YULI LOVETT [address] [facility] [address], [place], [address], [facility] 11/07/2023 14:24:24 03/25/2024 text/html Lorri Phillips i s a 48 year old F who presented to the clinic for her annual exam. Pt denies any emergency room visits or hospitalizations this year. Pt this year did have an abnormal breast imaging which needed a biospy. Pathology showed atypical lobular hyperplasia. Complaints: will have uterine polyp removed May 09 2024 Is not using ASA.OTC/Herbal supplements use: vitamin D intermittently with [employer] Gynecologic HistoryPatient's last menstrual period was 03/24/2024Menstrual cycle lasts 7-9 days, without spotting/clothsMenstru al cycle: monthly-> getting littlerSexually active: yes with husbandContraception: none+ fibroids+ abnormal paps, had a colpo and it was normalDenies cysts, stds Obstetric HistoryGravida: 2Para: 2AB: 0Livin (C/S)Complications: none Drug use: neverEtoh use: nevertobacco use: neverspf/derm: Dental: every 6 monthsEye: every other ear, wears glassesDiet: regularActivity: 30 mins ever other day AMBER PIÑA MD [address] [facility] [address], [place], [address], [facility] 03/25/2024 15:05:01 OBGyn Episode No OBEpisode recorded.
[2024-09-09 08:37] LABS: Cholesterol 164 mg/dL (<200); HDL Cholesterol 36 mg/dL (>40); Triglycerides 255 mg/dL (<150)
[2024-09-09 08:55] LABS: Free T4 (Free Thyroxine) 0.99 ng/dL (0.71-1.85); Thyroid Stimulating Hormone 1.46 uIU/mL (0.32-4.0)
== END 2024-09-09 07:10 | disposition home or self-care (01) ==
LOC: HO.LAB 07:09
PROVIDERS: Visit Provider Student in an Organized Health Care Education/Training Program
DX: E78.2 Mixed hyperlipidemia (principal)
CPT/HCPCS: 36415; 80061; 84439; 84443

== ENCOUNTER 2024-09-16 12:54 | Outpatient (AMB) | payer OTHER, SELFPAY ==
--- OUTSIDE RECORDS SUMMARY | 2024-05-09 07:00 | XMS_ITS ---
Author Organization [facility] Address [address] [place] [address] Care Team Providers Care Director Customer Name Role Phone DENAE BORDEN, RADHA Primary Care Provider Unav ailable LULU MORALES Unavailable [phone] REASON FOR VISIT HSONO/EB/POLYP ON US Encounters Encounter Location Date Provider Diagnosis [address] [address] 05/09/2024 LULU MORALES Plan Of Treatment Next Appt Details Provider Name:LULU Amin, 12/02/2024 01:00:00 PM, [address] [place] [address], [facility] [address], [place], [address], Progress Notes * SULAIMANHERMELINDOOB: 6 (48 yo F)Acc No.[id number]:05/09/2024 Patient: Eloy DELBERTED HOOVERY Provider: Shari MORALES MD :1975 A ge:48 Y S ex:Female Date:05/09/2024 Address:[address] [place], [place] [id number] Pcp:RADHA PHILIPPE MD Subjective: * Chief Complaints: * 1 . HSONO/EB/POLYP ON US. * Medical History: Objective: * Vitals: Assessment: Plan: * Treatment: * Images: Billing Information: * Visit Code: * Procedure Codes: * Electronic signature of LULU MORALES MD on 09/16/2024 at 02:06 PM EDT Sign off status: Pending * Provider: Shari MORALES MD Date: 0 05/09/2024 Generated for Mariam rabago/John/Leroy on: 0 09/16/2024 02:06 PM EDT
--- NOTE | 2024-09-16 12:56 | MHC.OFFVIS ---
Vital Signs 09/16/24 13:02 Height 5 ft 6 in Weight 193 lb BMI 31.1 BP 129/63 Blood Pressure Location Lt brachial Position Sitting Pulse 89 Intake Visit Reasons: 6 month mammo follow up Intake Note: Patient is seen in office for 6 month follow up visit, breast exam. Pt c/o: denies any concerns MRI:08/19/24 mm:02/19/24 (DUE Soon) Blank Driller Required: No Category Consultant: Category Consultant Present Accompanied by: Self / Same As Patient Allergies Penicillins Allergy (Severe, Verified 09/16/24 13:02) Hives vancomycin Allergy (Severe, Verified 09/16/24 13:02) Anaphylaxis Medication List - Last Reconciled 09/16/24 by Brett Arechiga MD albuterol sulfate 90 mcg/actuation 2 puffs inhalation Q6H PRN benzonatate 200 mg PO BEDTIME PRN doxycycline hyclate 100 mg PO BID escitalopram oxalate 10 mg PO DAILY inhalational spacing device (BreatheRite MDI Spacer) As directed levothyroxine (Tirosint) 112 mcg PO DAILY tamoxifen 20 mg PO DAILY HPI Comments Details: 48-year-old female patient with a history of atypical lobular hyperplasia returning for a follow-up breast examination. She underwent a left breast lumpectomy on 07/09/2023 and was found to have atypical lobular hyperplasia. She was subsequently evaluated by Dr. Saenz on 09/11/2023 and was offered tamoxifen. She subsequently saw the breast cancer center at [facility] and decided to start the tamoxifen. She is tolerating this well but notes increased in her cholesterol level and some hair loss. Family history is significant for a paternal grandmother with breast cancer x2, developed in her 60s. Her father was diagnosed with pancreatic cancer at the age of 57 and paternal grandfather was diagnosed with prostate cancer. She is 3 para 2 with 1 miscarriage. She breastfed her 1st child for short period time. She denies a history of breast infections. 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 The patient's Tyrer-Cuzick remaining lifetime risk of breast cancer was calculated at 41.1% placing her well above the 20% threshold, placing her at high risk for breast cancer. She was also determined to be at increased risk for colon cancer but reports that she has previously undergone colonoscopy last year. Mammogram performed on 02/19/2024 revealed no mammographic evidence of malignancy (BI-RADS 2). Breast MRI of 08/19/2024 revealed no MR evidence of malignancy both breasts (BI-RADS 2 left breast, BI-RADS 1 right breast). A 7 mm T2 hyperdense oval liver lesion was noted and follow-up cross-sectional hepatic mass protocol imaging was recommended. The MR findings were reviewed with the patient today. [facility] Medical History Family history of colon cancer Pre-op examination Bhargavi's thyroiditis Surgical History History of lumpectomy of left breast (07/09/23) H/O abdominoplasty Hx of breast reduction, elective H/O section Family History Paternal Grandfather Prostate cancer Brain cancer Colon cancer Paternal Grandmother Breast cancer Esophageal cancer Lung cancer Paternal Aunt Lung cancer Paternal Aunt Lung cancer Father Pancreatic cancer Esophageal cancer Lung cancer Mother Cervical cancer Social History Household Members: Spouse and Family Patient Tobacco Use Status: Never used Tobacco Second Hand Smoke Exposure: No service: Yes Current occupational status: employed Review of Systems Const All systems reviewed & are unremarkable except as noted in HPI and below Physical Exam Vital Signs: Last Vital Signs Pulse 89 09/16/24 13:02 BP 129/63 09/16/24 13:02 BMI result Body Mass Index 31.1 Const General: cooperative and no acute distress Nutritional Appearance: well nourished Orientation/consciousness: patient oriented x3 Limitations: no limitations Chest Other: Bilateral breast reduction surgery incisions which are well healed Left breast: No skin change, no nipple retraction, no nipple discharge, no palpable mass, no enlarged lymph nodes. Right breast: No skin change, no nipple retraction, no nipple discharge, no palpable mass, no enlarged lymph nodes Resp Effort & Inspection: normal respiratory effort, no audible wheezes, no cough and no respiratory distress Cardio Jugular venous distension: no JVD GI Inspection: Yes normal to inspection Skin Other: Warm, dry, no rash Neuro General: patient oriented x3 Extrem General: Yes no clubbing, cyanosis or edema Assessment & Plan Assessment & Plan (1) Atypical lobular hyperplasia (ALH) of left breast: Code(s): N60.92 - Unspecified benign mammary dysplasia of left breast Category: Medical (2) Increased risk of breast cancer: Code(s): Z91.89 - Other specified personal risk factors, not elsewhere classified Category: Medical (3) Family history of breast cancer: Code(s): Z80.3 - Family history of malignant neoplasm of breast Category: Medical Plan 48-year-old female patient diagnosed with atypical lobular hyperplasia status post lumpectomy on 07/09/2023. She was being followed by the [facility] breast Center in his currently on tamoxifen and tolerating this well. Her most recent mammogram of 02/19/2024 revealed no mammographic evidence of malignancy (BI-RADS 2). MRI performed on 08/19/2024 revealed no MR specific evidence of malignancy (BI-RADS 2 left, BI-RADS 1 right). A possible liver lesion was identified and will be reimaged with the abdominal MRI. Examination today revealed no suspicious findings in either breast and no enlarged lymph nodes. I recommended follow-up examination in 6 months, sooner PRN. Orders: Orders MR abdomen wo/w con Today R16.0 - Hepatomegaly, not elsewhere classified Coding Level of Care Code Est Pt Level 3 (06547) Complex EM visit Add On G2211 Diagnoses Atypical lobular hyperplasia (ALH) of left breast N60.92 Increased risk of breast cancer Z91.89 Family history of breast cancer Z80.3
[2024-09-16 13:02] VITALS: BP 129/63; PULSE 89; BMI 31.1
--- OUTSIDE RECORDS SUMMARY | 2024-09-16 14:07 | XMS_ITS | Data Portability ---
Author Organization [facility], Main Office Address [address] [place] [address] Care Team Providers Care Radiology Therapist Name Role Phone [facility] Sleep Medi cine CEASAR CHOUDHARY Plastic/Reconstructive Surgeon KHAI JOYCE Sports Medicine EDITH HINOJOSA Mass Spectrometry Manager AMBER PIÑA Primary Care Provider LULU MORALES Referring Provider EVONNE ARECHIGA Referring Provider Assessment Encounter Date Assessment Date [...] ed. Lab lipid panel, serum 2024 025 [facility], [address] [place] [address], [place], [address], 14:10:39 BMP, serum or plasma 2024 025 [facility], [address] [place] [address], [address], 5 14:10:39 CBC w/ auto diff 2024 025 [facility], [address] [place] [address], [address], 5 14:10:39 TSH + free T4, serum 2024 025 [facility], [address] [place] [address], [address], 5 14:10:39 vitami n D, 25-hyd stanton, total, serum 2024 025 [facility], [address] [place] [address], [address], 5 14:10:39 BMP, serum or plasma 2023 024 [facility], [address] [place] [address], [address], 4 14:23:17 hepati c functi on panel, serum 2023 024 [facility], [address] [place] [address], [address], 4 14:23:17 lipid panel, blood 2022 023 [facility], [address] [place] [address], [address], 3 11:09:25 BMP, serum or plasma [email or web address] [place] [address] Laboratory, [address] [place] [address], [address], 3 16:08:27 CBC w/ auto diff [email or web address] [place] [address] Laboratory, [address] [place] [address], [place], [address], 3 16:08:27 TSH, serum or plasma [email or web address] [facility], [address] [place] [address], [address], 3 16:08:27 T4, free, serum 2022 023 [email or web address], [address] [place] [address], [address], 4 10:27:55 vitami n D, 25-hyd stanton, total, serum [address] [facility], [address] [place] [address], [address], 3 16:08:26 hepati tis C virus Ab, serum [address] [facility], [address] [place] [address], [place], [address], 3 16:08:27 Referral breast surger y referr al - for remova l of calcif icatio n 2022 023 [email or web address] Evonne Arechiga MD, [address] [place] [address] Dr, [place], [address], 4 14:47:48 Procedures None record ed. Surgeries None record ed. Imaging None record ed. Medication Orders levoth yroxin e 112 mcg capsul e 2024 025 [id number] [facility], [address] [place] [address], [place], [address], 5 07:42:06 escita lopram 10 mg tablet 2024 025 [facility], [address] [place] [address], [address], 5 14:05:43 escita lopram 10 mg tablet 2023 024 [facility], [address] [place] [address], [address], 4 13:47:25 fluoxe amanda 10 mg capsul e 2023 024 [facility] [address] [place], [address], 4 13:47:56 polymy matthew B sulfat e 10,000 unit-t rimeth oprim 1 mg/mL eye drops 2023 024 [id number] [address] [place], [address], 4 14:06:30 Contra ve 8 mg-90 mg tablet ,exten ded releas e 2022 023 [email or web address] [address] [place] [address], [address], 4 11:02:29 Patient TargetsNo targets recorded. Patient Instructions Encounter Date Encounter Id Patient Instructions Last Modified By Organization Details Last Modified Time 02/20/2023 [id number] Well Visit, Ages 18 to 65: Care Instructions Not available 02/20/2023 16:08:26 medical record request* [email or web address] Not available 02/21/2023 15:52:54 elin's thyroiditis: care instructions Not available 02/20/2023 16:08:26 starting a weigh t loss plan: care instructions Not available 02/20/2023 16:08:31 learning about mood disorders Not available 02/20/2023 16:08:27 06/13/2023 [id number] pinkeye: care instructions pmadden Not available 06/13/2023 11:23:28 Follow up if no improvement or if symptoms worsen. [email or web address] Not available 06/13/2023 11:16:56 09/05/2023 [id number] Patient understands usual risk, benefits and side effects. Not available 09/05/2023 14:29:56 03/25/2024 [id number] elin's thyroiditis: care instructions Not available 03/25/2024 [...] (PROC ) No observ ation record ed. [address] [place], [address], 01/23/2023 14:03:39 06/27/19 24 06/27/2023 MAMMO , diagn ostic , digit al, unila teral No observ ation record ed. [address] [place], [address], 06/27/2023 12:01:04 07/27/19 24 07/09/2023 mammo gram, follo w up* No observ ation record ed. [address] (Medical Records) [address] [facility] [place], [address], 07/28/2023 08:56:20 08/01/19 24 08/01/2023 XR, finge r(s) No observ ation record ed. [address] (Medical Records) [address] [place] [facility] [place], [address], 08/01/2023 16:01:25 08/23/19 24 08/14/2023 MRI, breas t, bilat eral, w/o contr ast No observ ation record ed. [address] (Medical Records) [address] [place], [address], 08/23/2023 12:14:44 10/20/19 24 10/20/2023 US, duple x, venou s, lower extre mity No observ ation record ed. [address] (Medical Records) [address] [place], [address], 10/21/2023 14:44:57 01/02/20 24 12/03/2023 US, pelvi s, trans abdom inal + trans vagin al No observ ation record ed. [address] (Medical Records) [address] [place], [address], 01/02/2024 11:25:13 03/03/20 24 02/19/2024 MAMMO , scree hortencia, digit al, bilat eral No observ ation record ed. [address] [place], [address], 03/04/2024 06:55:15 05/31/19 25 05/30/2024 bone densi ty No observ ation record ed. [email or web address] [address] [place], [address], 06/16/2024 10:45:19 08/23/19 25 08/19/2024 MRI, breas t, bilat eral, w/o contr ast No observ ation record ed. [address] (Medical Records) [address] [place], [address], 08/23/2024 16:14:41 Result Notes None recorded. Problems Name Problem SNOMED Code Status Onset Date Resolution Date Notes Provider Name and Address Organization Details Recorded Time Elin thyroidit is 83293805 Active 2016 Not Available [facility] 2 09:53:37 Depressiv e disorder 96480213 Completed 201607/04/2016 Michelle peralta [facility] 8 11:24:10 Depressiv e disorder 12740022 Completed 201607/06/2017 Michelle peralta [facility] 8 11:24:10 Family history of malignant neoplasm 737555054 Completed 201702/20/2023 AMBER PIÑA MD [address], [place], [address] , [facility] 3 06:11:32 Lumbago with sciatica 704772841 Completed 202003/29/2020 Dyan Newman PA-C [address] [facility] [address], [place], [address] , [facility] 1 16:16:07 Degenerat ion of lumbosacr al intervert ebral disc 34561813 Active 2020 Not Available [facility] 2 09:53:37 Acute conjuncti vitis of left eye 16958430402 9105 Completed 202102/20/2023 AMBER PIÑA MD [address], [place], [address] , [facility] 3 06:11:14 Vitamin D deficienc y 95820710 Active 2021 Not Available [facility] 2 09:53:37 Atypical lobular hyperplas ia of left breast 17499049193 669846 Active 2022 AMBER PIÑA MD [address], [place], [address] , [facility] 3 10:14:34 Severe major depressio n, single episode 25571434813 5 Active 2023 Rayne peralta [facility] 14:22:15 Problem Notes None recorded. Procedures Surgical History Date Name Laterality Status Provider Name and Address Organization Details Recorded Time 02/03/20 24 Most Recent Mammogram completed Sharlene May MA [facility] 03/25/2024 13:50:47 07/09/19 24 lumpectomy of breast completed Mary Louise [facility] 07/10/2023 08:50:04 05/06/19 23 Colonoscopy completed Mary Louise [facility] 05/08/2022 09:39:32 06/06/19 22 Mammogram both breasts completed Ling Aparicio [facility] 06/09/2021 12:36:24 05/10/19 22 Date of Last Pap Smear completed Sharlene May MA [facility] 02/20/2023 14:20:29 05/05/19 20 reduction plasty of bilateral breasts completed Sherri Salazar [facility] 05/09/2019 09:52:35 05/05/19 20 abdominoplasty completed Sherri Salazar [facility] 05/09/2019 09:52:50 05/05/19 20 Other completed Sharlene May MA [facility] 05/05/2021 15:24:13 08/13/19 07 Caesarean Section completed Sharlene May MA [facility] 07/04/2016 10:47:14 12/12/19 04 Caesarean Section completed Sharlene May MA [facility] 07/04/2016 10:47:14 Breast Biopsy completed Sharlene May MA [facility] 05/05/2021 15:24:13 Breast Surgery completed Sharlene May MA [facility] 05/05/2021 15:24:13 Imaging Results None recorded. Procedure Notes None recorded. Medical Equipment None Reported. Allergies Allergen ID Allergen Name Allergen Category Reaction Reaction Severity Criticality Documentation Date Start Date Code Code System Note Provider Name and Address Organization Details Recorded Time 68564 Product containin g penicilli n (product) medicatio n hives severe Not available 07/04/2016 57976 8001 SNOMED NELSON Topete, [facility] 7 10:46:23 81137 vancomyci n medicatio n anaphylax is Not available [facility] 09/05/2023 19213 RxNorm Anju UlloajeffedieMIHIR, [facility] 4 14:06:03 Medications Name Sig Start Date [...] Updated DateTime 5 167.64 cm 30.4 kg/m2 41482.1 7 g 99 % 99 % 73 /min 98.2 [degF] 116/68 mm[Hg] Sharlene May MA [facility] 5 13:48:36 Date Recorded Body height Body mass index (BMI) Body weight Heart rate Oxygen saturation Oxygen saturation in Arterial blood by Pulse oximetry Body temperature Systolic And Diastolic Provider Name and Address Organization Details Last Updated DateTime 4 167.64 cm 30.2 kg/m2 41345.7 7 g 67 /min 98 % 98 % 98.3 [degF] 110/68 mm[Hg] Jeanette preston MA [facility] 4 11:02:01 Date Recorded Body height Body mass index (BMI) Body weight Heart rate Oxygen saturation Oxygen saturation in Arterial blood by Pulse oximetry Body temperature Systolic And Diastolic Provider Name and Address Organization Details Last Updated DateTime 4 167.64 cm 30.9 kg/m2 91370.5 4 g 70 /min 99 % 99 % 98.3 [degF] 128/85 mm[Hg] Anju Hagen LPN [facility] 4 14:05:28 Date Recorded Body height Body mass index (BMI) Body weight Heart rate Oxygen saturation Oxygen saturation in Arterial blood by Pulse oximetry Body temperature Systolic And Diastolic Provider Name and Address Organization Details Last Updated DateTime 4 167.64 cm 31.2 kg/m2 28362.3 3 g 80 /min 97 % 97 % 98.3 [degF] 113/69 mm[Hg] Jeanette preston MA [facility] 4 13:02:11 Date Recorded Body height Body mass index (BMI) Body weight Oxygen saturation Oxygen saturation in Arterial blood by Pulse oximetry Heart rate Body temperature Systolic And Diastolic Provider Name and Address Organization Details Last Updated DateTime 3 167.64 cm 30.1 kg/m2 13187.9 8 g 98 % 98 % 76 /min 98.1 [degF] 106/65 mm[Hg] Sharlene May MA [facility] 3 14:18:24 Social History Question Answer Notes LastModified by Organizat ion Details LastModified Time Tobacco Smoking Status [facility] 10:47:06 Is Blood Transfusion Acceptable In An Emergency? Yes [email or web address] Information not available 07/04/2016 What Is Your Level Of Caffeine Consumption? None [email or web address] Information not available 07/04/2016 How Much Tobacco Do You Chew? None [email or web address] Information not available 07/04/2016 What Type Of Diet Are You Following? REGULAR [email or web address] Information not available 07/04/2016 Which Illicit Or Recreational Drugs Have You Used? Never [email or web address] Information not available 07/04/2016 Live Alone Or With Others? With Others [email or web address] Information not available 02/20/2023 Do You Take Precautions To Prevent Distracted Driving? Yes [email or web address] Information not available 07/04/2016 How Often Do You Need To Have Someone Help You When You Read Instructions, Pamphlets, Or Other Written Material From Your Doctor Or Pharmacy? Never [email or web address] Information not available 07/04/2016 Have You Served In The ? No [email or web address] Information not available 07/04/2016 Have You Or Anyone In Your Household Had Any Of The Following Symptoms In The Last 14 Days: Sore Throat, Cough, Chills, Body Aches For Unknown Reasons, Shortness Of Breath For Unknown Reasons, Loss Of Smell, Loss Of Taste, Fever At Or Greater Than 100 Degrees Fahrenheit? No [email or web address] Information not available 04/02/2020 Are You Or Anyone In Your Household A Health Care Provider Or Emergency Responder? Yes Works As [email or web address] Information not available 04/02/2020 To The Best Of Your Knowledge Have You Been In Close Proximity To Any Individual Who Tested Positive For COVID-19? No [email or web address] Information not available 04/02/2020 *AWV ONLY* Are You Presently Prescribed Opioid Medication By PCP Or Specialist? If YES -Provider Assess The Benefit For Other, Non-opioid Pain Therapies Instead, Even If The Patient Does Not Have OUD But Is Possibly At Risk. No [email or web address] Information not available 05/05/2021 Have You Recently Traveled To A COVID-19 High Risk Area Or Gathering In The Last 10 Days? No [email or web address] Information not available 04/02/2020 What Was The Date Of Your Most Recent Tobacco Screening? 03/25/2024 [email or web address] Information not available 03/25/2024 How Many Children Do You Have? 2 Elzbieta Information not available 11/07/2023 Do You Use Protection During Sex? No [email or web address] Information not available 07/04/2016 Do You Use Your Seat Belt Or Car Seat Routinely? Yes [email or web address] Information not available 05/05/2021 Seat Belts Used Routinely Yes [email or web address] Information not available 02/20/2023 Are You Sexually Active? Yes [email or web address] Information not available 07/04/2016 Smoke Alarm In Home Yes [email or web address] Information not available 02/20/2023 Do You Have Smoke And Carbon Monoxide Detectors In Your Home? Yes [email or web address] Information not available 05/05/2021 Are You Passively Exposed To Smoke? No [email or web address] Information not available 07/04/2016 How Much Tobacco Do You Smoke? No [email or web address] Information not available 02/20/2023 Do You Use Sunscreen Routinely? Yes [email or web address] Information not available 07/04/2016 Sex: Unknown Functional Status Question Answer Note LastModified by Organizat ion Details LastModified Time Do you use any illicit or recreational drugs? No Information not available 11/07/2023 Do you or have you ever used any other forms of tobacco or nicotine? No Information not available 11/07/2023 What is your level of alcohol consumption? None [email or web address] Information not available 07/04/2016 Do you or have you ever used smokeless tobacco? Never used smokeless tobacco [email or web address] Information not available 12/05/2018 Are you currently employed? Yes [email or web address] Information not available 07/04/2016 Are you able to walk? YESWOREST [email or web address] Information not available 02/20/2023 Are you able to care for yourself? 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 Never used electronic cigarettes Information not available 02/20/2023 What is your exercise level? Occasional [email or web address] Information not available 07/04/2016 Mental Status None recorded. Family History Relationship Description Onset Age of this Age Resolved Age Notes LastModified by Organization Details LastModified Time Paternal Grandfather Harmful pattern of use of alcohol [email or web address] Not available 07/04 10:46:44 Paternal Grandfather Malignant neoplasm of lung [email or web address] Not available 07/04 10:46:44 Paternal Grandfather Malignant tumor of colon [email or web address] Not available 07/04 10:46:44 Maternal Grandmother Alzheimer's disease [email or web address] Not available 07/04 10:46:44 Maternal Grandmother Hypercholest erolemia [email or web address] Not available 07/04 10:46:44 Maternal Grandmother Disorder of thyroid gland [email or web address] Not available 07/04 10:46:44 Maternal Grandmother Arthritis [email or web address] Not available 0 07/04/2016 10:46:44 Maternal Grandmother Obesity [email or web address] Not available 04/2016 10:46:44 Maternal Grandmother Diabetes mellitus [email or web address] Not available 07/04 10:46:44 Mother Malignant tumor of cervix [email or web address] Not available 05/05 15:23:56 Paternal Grandmother Harmful pattern of use of alcohol [email or web address] Not available 05/05 15:23:56 Paternal Grandmother Malignant tumor of breast [email or web address] Not available 07/04 10:46:44 Paternal Grandmother Malignant neoplasm of lung Not available 07/04 10:46:44 Son Attention deficit hyperactivit y disorder 8 [email or web address] Not available 02/02 14:13:19 Son Anxiety disorder 10 [email or web address] Not available 02/20 14:13:19 Maternal Aunt Asthma [email or web address] Not av ailable 07/04/2016 10:46:44 Maternal Aunt Depressive disorder suicid e in matern al cousin lgladingdilor enz Not available 07/06/2017 11:26:53 Father Chronic obstructive pulmonary disease Not available 07/04 10:46:44 Father Hypercholest erolemia [email or web address] Not available 05/05 15:23:56 Father Diabetes mellitus [email or web address] Not available 05/05 15:23:56 Father Malignant neoplasm of lung [email or web address] Not available 07/04 10:46:44 Father Harmful pattern of use of alcohol [email or web address] Not available 05/05 15:23:56 Father Hypertensive disorder Not available 07/04 10:46:44 Father Allergy [email or web address] Not availabl e 02/20/2023 14:13:19 Father Malignant tumor of pancreas 58 59 [email or web address] Not available 07/04 10:50:21 Maternal Grandfather Chronic obstructive pulmonary disease [email or web address] Not available 05/05 15:23:56 Paternal Aunt Harmful pattern of use of alcohol [email or web address] Not available 05/05 15:23:56 Paternal Aunt Harmful pattern of use of alcohol [email or web address] Not available 05/05 15:23:56 Paternal Aunt Malignant tumor of breast [email or web address] Not available 05/05 15:23:56 Paternal Aunt Malignant neoplasm of lung Not available 07/04 10:46:44 Paternal Aunt Malignant neoplasm of lung [email or web address] Not available 05/05 15:23:56 Paternal Uncle Hypercholest erolemia fjijzlqu49 Not available 05/05 15:23:56 Paternal Uncle Diabetes mellitus [email or web address] Not available 05/05 15:23:56 Medical History Condition Response Other N Gout N Kidney Stones N Blood Diseases N Hyperthyroidism N Breast Cancer N COPD N Depression Y Hypothyroidism Y Lung Disease N Defects or Inherited Disease N Anesthesia [...] Problems Y GI Problems N Acne N Skin Problems N Eating Disorder N Anemia N Constipation N Bladder Problems N Mental Illness N Ovarian Cancer N Diabetes N Blood Transfusions N Seizures/Epilepsy N Tuberculosis N AIDS/HIV N Congestive Heart Failure (CHF) N Eczema N Diverticulitis N Abuse/Domestic Violence N Asthma N Allergies N Reflux/GERD N Hepatitis N Pulmonary Embolism N Hypertension N Osteoporosis N Chicken Pox Y Autism Spectrum Disorder (ASD) N Gynecological History Statement/Question Response Date of Last Pap Smear 05/09/2021 Most Recent Mammogram 02/03/2024 Obstetrics History GPAL:G 0 P 0 0 0 0 Immunizations Vaccine Type Date Status Note Provider Nam e and Address Organization Details Recorded Time DTaP 6 completed Mary peralta [facility] 01/31/2022 12:27:22 DTaP 6 completed Mary peralta [facility] 01/31/2022 12:27:22 DTaP 7 completed Mary peralta [facility] 01/31/2022 12:27:21 DTaP 8 completed Mary peralta [facility] 01/31/2022 12:27:22 DTaP 2 completed Mary peralta [facility] 01/31/2022 12:27:22 Td (adult) 2 completed Mary peralta [facility] 01/31/2022 12:27:22 OPV 6 completed Mary Louise null, [facility] 01/31/2022 12:27:22 OPV 6 completed Mary Louise null, [facility] 01/31/2022 12:27:21 OPV 7 completed Mary Louise null, [facility] 01/31/2022 12:27:22 OPV 8 completed Mary Louise null, [facility] 01/31/2022 12:27:21 OPV 2 completed Mary Louise null, [facility] 01/31/2022 12:27:22 MMR 7 completed Mary Louise null, [facility] 01/31/2022 12:27:22 MMR 0 completed Mary Louise null, [facility] 01/31/2022 12:27:22 varicella 4 completed Mary Louise null, [facility] 01/31/2022 12:27:22 Hep B, adult 6 completed Mary Louise null, [facility] 01/31/2022 12:27:22 Hep B, adult 5 completed Mary Louise null, [facility] 01/31/2022 12:27:21 Hep B, adult 6 completed Mary Louise null, [facility] 01/31/2022 12:27:21 Tdap 3 completed Mary Louise null, [facility] 01/31/2022 12:27:21 Influenza, split virus, quadrivalent, preservative 7 completed Mary Louise null, [facility] 01/31/2022 12:27:21 Influenza, split virus, quadrivalent, preservative 9 completed Mary Louise null, [facility] 01/31/2022 12:27:22 Influenza, split virus, quadrivalent, preservative 9 completed Sharlene May MA null, [facility] 02/20/2023 14:18:46 Influenza, split virus, quadrivalent, preservative 0 completed Mary Louise null, [facility] 01/31/2022 12:27:22 Influenza, split virus, quadrivalent, preservative 1 completed Mary Louise null, [facility] 01/31/2022 12:27:22 Influenza, split virus, trivalent, preservative 3 [facility] 12:27:21 Influenza, split virus, trivalent, preservative 3 [facility] 12:27:21 Influenza, split virus, quadrivalent, preservative 7 completed Mary Louise null, [facility] 01/31/2022 12:27:21 Influenza, MDCK, quadrivalent, PF 8 completed [facility] 12:27:22 Influenza, split virus, quadrivalent, PF 1 completed [facility] 12:27:22 COVID-19, mRNA, LNP-S, PF, 100 mcg/0.5mL dose or 50 mcg/0.25mL dose 0 completed Mary Louise null, [facility] 01/31/2022 12:27:22 COVID-19, mRNA, LNP-S, PF, 100 mcg/0.5mL dose or 50 mcg/0.25mL dose 1 [facility] 12:27:22 Influenza, split virus, trivalent, preservative 4 completed Mary Louise null, [facility] 01/31/2022 12:27:22 Influenza, split virus, trivalent, preservative 5 completed Mary Louise null, [facility] 01/31/2022 12:27:22 COVID-19, mRNA, LNP-S, bivalent, PF, 50 mcg/0.5 mL or 25mcg/0.25 mL dose 2 completed Sharlene May NELSON null, [facility] 2022 09:19:17 Influenza, split virus, quadrivalent, PF 2 completed Sharlene May NELSON null, [facility] 02/20/2023 14:18:46 COVID-19, mRNA, LNP-S, PF, 30 mcg/0.3 mL dose 1 completed Sharlene May NELSON null, [facility] 2022 09:19:17 Tdap 3 completed Sharlene May MA null, [facility] 02/20/2023 14:18:46 COVID-19, mRNA, LNP-S, PF, 100 mcg/0.5mL dose or 50 mcg/0.25mL dose 1 completed Sharlene May NELSON null, [facility] 02/20/2023 14:18:46 COVID-19, mRNA, LNP-S, PF, 100 mcg/0.5mL dose or 50 mcg/0.25mL dose 1 completed Jeanette Cortez s NELSON null, [facility] 06/13/2023 10:56:34 COVID-19, mRNA, LNP-S, PF, 30 mcg/0.3 mL dose 0 completed Sharlene May NELSON null, [facility] 02/20/2023 14:18:46 Influenza, MDCK, quadrivalent, PF 4 completed Anju Hagen LPN null, [facility] 09/05/2023 14:05:43 COVID-19, mRNA, LNP-S, PF, alyssa-sucrose, 30 mcg/0.3 mL 4 completed Anju Hagen LPN null, [facility] 09/05/2023 14:05:43 Influenza, MDCK, trivalent, PF 5 completed Mary Louise null, [facility] 03/31/2024 13:01:45 Past Encounters Encounter ID Performer Location Encounter Start Date Encounter Closed Date Diagnosis/Indication Diagnosis SNOMED-CT Code Diagnosis ICD10 Code Diagnosis Note [id number] Michelle dean MD Main Office [address] [place] [address] 07/04/2016 10:33:00 07/04/2016 11:53:47 Adult health examination 180013123 Z00.00 could eat better, thinks less sweets and do more veggies. is active, would liek to lose weight, utd on screening Hypothyroidism 68295969 E03.9 nl level recently. Elin thyroiditis 21 404053 E06.3 treated by wagon washer Single jing or depressive episode, in full remission 895105880 F32.5 pt weaned off zoloft last year, had been on for life change when she moved up here and 2 episodes of post depression , feels well. exercises 2-3 times a week, walking, videos Hypercholesterolemia 136 85885 E78.2 check fasting Fatigue 55873976 R53.83 Sensation of blocked ear 265226141 H93.299 left ear canal is blocked with cerumen Family his tory of breast cancer 173103647 Z80.3 We spoke about pts family of maternal aunt and MGM with breast cancer at 60, father with pancreatic cancer, I gave pt the number for genetic screening for family cancer syndrome, she will choose if she wants to pursue this, no first degree relative with breast cancer, no role for BRCA testing that I see [id number] Frandy Newman PA-C Main Office [address] [facility] [address] [place] [address] 10/05/2016 15:40:46 10/09/2016 14:54:48 Edema of knee 270965286 R60.0 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 will give trial of neoprene sleeve, aleve, ice p activity - call if worse. [id number] Michelle dean MD Main Office [address] [facility] [address] [place] [address] 07/06/2017 10:24:02 07/06/2017 11:56:04 Adult health examination 670642794 Z00.00 could eat better, thinks less sweets and do more veggies. is active, would liek to lose weight, utd on screening Hypercholesterolemia 136 95763 E78.2 check fasting Fatigue 75028281 R53.83 check labs Elin thyroiditis 21 198036 E06.3 treated by endo Hypothyroidism 57523286 E03.9 nl level recently. 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 Family his tory of malignant neoplasm 752671738 Z80.9 pt will get info form uncles testing for genetic predisposi tion to cancer, we will discuss at followup, she is considerin g seeing genetic testing/co unseling [id number] Michelle dean MD Main Office [address] [facility] [address] [place] [address] 12/05/2018 08:15:41 12/05/2018 09:50:55 Adult health examination 484027568 Z00.00 continue exercise and resistance training. utd with screening Anti-nucle ar factor detected 745080422 R76.8 check DS DNA , saw rheum and he felt not from SLE, more of a false positive, symptoms are fatigue, hair thiinning adn joint pain but all improving Pain of mu ltiple joints 90118368 M25.50 check albs, dx with OA of knees and bursitis of hips by rheum, continue exercise and stretching Fatigue 77818516 R53.83 sleep eval [id number] Michelle dean MD Main Office [address] [address] [place] [address] 03/12/2019 09:39:13 03/12/2019 10:28:59 Diarrhea 41724891 R19.7 talked about low fodmap eating and gave info Low back pain 753730499 M54.5 from over stretching , return if worsens or any weakness, strength is normal [id number] Jose Jiang MD [address] [address] [place] [address] 03/08/2020 14:15:15 03/08/2020 15:23:02 Lumbago with sciatica 268033190 M54.40 advised to be seen in office tomorrow for the exam. STart muscle relaxant at HS today and xrays of the LS spine today. Continue icing and motrin 600 q 6 hrs. Pain in coccyx 69408220 M53.3 [id number] Jose Jiang MD Main Office [address] [place] [address] [place] [address] 03/09/2020 08:31:18 03/09/2020 09:53:52 Lumbago with sciatica 997280674 M54.40 advised to be seen in office tomorrow for the exam. STart muscle relaxant at HS today and xrays of the LS spine today. Continue icing and motrin 600 q 6 hrs. [id number] Michelle dean MD Main Office [address] [place] [address] [place] [address] 04/02/2020 14:48:12 04/02/2020 15:51:52 Adult health examination 371911533 Z00.00 continue exercise and resistance training. set up mammogram and pap smear Degenerati on of lumbosacral intervertebral disc 14862913 M51.37 Screening for malignant neoplasm of cervix 773542748 Z12.4 Screening for malignant neoplasm of breast 581658347 Z12.39 Low back pain 873006445 M54.5 from over stretching , return if worsens or any weakness, strength is normal [id number] Michelle dean MD [address] [place] [address] 04/26/2020 13:41:31 04/27/2020 11:55:07 Acute conjunctivitis 02214220 H10.33 SYMPTOMS: which eye(s)? bilateral redness? yes [...] if worse or eye pain Antibiotic treatment [id number] Michelle dean MD Main Office [address] [address] 05/05/2021 15:23:02 05/05/2021 16:06:57 Adult health examination 941951266 Z00.00 pt is due for mammogram, order ptu and pt to arrange, will refer for colonoscop y, is exercising Elin thyroiditis 21 131725 E06.3 check labs, cotninu med Body mass index 25-29 - overweight 050755674 Z68.29 Screening for malignant neoplasm of colon 534051336 Z12.11 pt will make appt with GI Family his tory of malignant neoplasm 903562195 Z80.9 pt will get info form uncles testing for genetic predisposi tion to cancer, we will discuss at followup, she is yina vernon seeing genetic testing/co unseling Screening for malignant neoplasm of breast 398291482 Z12.39 pt ot arrange Mild memor y disturbance 063316073 R41.3 brought up at end of visit, word finding, some dates, not progressin g, will get labs and refer for neuropsych testing she is interested Overweight 714149136 E66 .3 [id number] [facility] [address] [facility] [address] [place] [address] 10/12/2021 09:12:15 10/12/2021 15:48:39 Red eye 708407646 H11.432 SYMPTOMS:w hich eye(s)? leftrednes s? yesdischar [...] prescribe) Acute conj unctivitis of left eye 8100873749 01300 H10.32 Warm compresses and wipe away crust, wash hands prior to touching eyes/ drops. Polytrim eye drops every 6 hours as directed x 7-10 days. if sx worsen or are not better please call/ return. [id number] Cici Murillo MD Main Office [address] [address] 2022 09:06:43 2022 10:10:34 Laceration of finger of right hand 3501055658 6663108 S61.210A Wound is well-heale d with some scar tissue. Advised the patient she can put some Vaseline to it. Reassuranc e provided. [id number] AMBER PIÑA MD Main Office [address] [address] 02/20/2023 14:00:13 02/20/2023 14:52:53 Adult health examination 954359415 Z00.00 Health Maintenanc e FemaleA) Patient was [...] nfluenza: will getTdAP: 09/29/2022Z melanie: due at 12OQG92: due at 90OYXD18: due at 98KYR51:PADMINI V15:COVID: 02/26/2020 , 03/25/2020, 01/21/2021 , 01/05/2022 D) Routine blood work orderedE) Updated patient's history RTC in one year for annual exam or sooner if any acute complaints Atypical l obular hyperplasia of left breast 3471654595 3291388 N60.92 - diagnosed on biospy done on 01/24- pt was seen by breast surgery at [facility] on 02/14/23> recommende d tamoxifen and surgical consultati on for removal of cells- pt referred to surgery Degenerati on of lumbosacral intervertebral disc 41106674 M51.37 - currently under good control Vitamin D deficiency 347 60075 E55.9 - will get levels- pt has completed the once weekly medication not currently on any supplement ation- recommende d taking a 1000 units daily Elin thyroiditis 21 717035 E06.3 - will check levels- c/w levothyrox ine 112mcg at this time Fatigue 50554538 R53.83 Z00.00 Hyperlipidemia 95495048 E78.5 Z00.00 Hepatitis C screening 41 1305779 Z11.59 Mood disorder 79007308 F 39 - PHQ-9 core of 11- pt is very stressed due to her weight and most recent breast cancer finding- will continue to monitor Body mass index 30+ - obesity 144073823 Z68.30 E66.9 - BMI of 30.1- Cut [...] contrave after patient lets know the pharmacy. [id number] Srinivas Miller MD Main Office [address] [address] [place] [address] 06/13/2023 10:38:03 06/13/2023 11:27:28 Acute conjunctivitis 61372665 H10.30 SYMPTOMS: which eye(s)? left redness? yes discharge? yes crusting or matting on waking? yes exposure to someone with conjunctiv itis? no POSSIBLE CONTRAINDI CATIONS TO TELEPHONE TREATMENT: eye pain? yes blurry vision? yes yesterday recent treatment (within 1 month)? no trauma? no lupus or rheumatoid arthritis? no PROVIDER ACTION Reviewed nursing notes? Recommende d action Antibiotic treatment [id number] Rip Pineda MD Main Office [address] [place] [address] 09/05/2023 13:48:37 09/05/2023 14:26:01 Severe major depression, single episode 7197091191 05 F32.2 PHQ-9 score of 23-has hx [...] 10mg QD and f/u in 4 weeks [id number] Rip Pineda MD Main Office [address] [address] [place] [address] 11/07/2023 12:47:52 11/07/2023 13:15:04 Severe major depression, single episode 5758827392 05 F32.2 PHQ-9 score of 0 and [...] is complete and f/u in 6 weeks [id number] AMBER PIÑA MD Main Office [address] [facility] [place] [place] [address] 03/25/2024 13:30:29 03/25/2024 14:12:15 Adult health examination 622833471 Z00.00 Health Maintenanc e FemaleA) Patient was [...] not this yearTdAP: 09/29/2022Z melanie: due at 03TEF26: due at 51YBUA23: due at 41SGE12:PC V15:COVID: 02/26/2020 , 03/25/2020, 01/21/2021 , 01/05/2022, 03/10/2023 D) Routine blood work orderedE) Updated patient's history RTC in one year for annual exam or sooner if any acute complaints Atypical l obular hyperplasia of left breast 0281070037 8232156 N60.92 - diagnosed on biospy done on 01/24- pt was seen by breast surgery at [facility] on 03/11/2024> currently on tamoxifen, pt will be on the medication for 5 years Elin thyroiditis 21 759464 E06.3 - will check levels- c/w levothyrox ine 112mcg at this time Severe jing or depression, single episode 9152666342 05 F32.2 - PHQ-9 score 0- c/w escitalopr am 10mg QD> does notice improvemen t on it, will consider stopping in the summer time- denies SI/HI- is[place] vernon provided Vitamin D deficiency 347 24014 E55.9 - will get levels- pt has completed the once weekly medication not currently on any supplement ation- recommende d taking a 1000 units daily Fatigue 04488113 R53.83 Z00.00 Hyperlipidemia 80689690 E78.5 Z00.00 FASTING Body mass index 30+ - obesity 673039708 Z68.30 E66.9 - BMI of 30.4- Cut [...] Grant Member ID Guarantor Name 09/15/2022 1 [facility] [id number] Lorri Martin Jacqueline [id number] Lorri Phillips 09/15/2022 1 [facility] Lorri Khanurque [id number] Lorri Phillips 08/05/2024 1 [employer] [facility] (EPO) [id number] Lorri Martin Jacqueline [id number] Lorri Phillips Notes Date Note Type Note [...] hyperplasia. Pt wanted to seek advise at [facility] before proceeding with any [...] walking 1 hour AMBER PIÑA MD [address] [address], [place], [address], [facility] 02/20/2023 16:47:28 06/13/2023 text/html Patient c/o left eye redness, itching, and discomfort x 4 days.+ am crustingno use of warm compresses Frandy Newman PA-C [address] [address], [place], [address], [facility] 06/13/2023 11:27:41 09/05/2023 text/html Lorri is [...] of any SI or HI. Rayne peralta, [facility] 09/18/2023 14:23:22 11/07/2023 text/html Lorri is [...] any SI or HI. YULI LOVETT [address] [facility] [address], [place], [address], [facility] 11/07/2023 14:24:24 03/25/2024 text/html Lorri Phillips [...] ever other day AMBER PIÑA MD [address] [facility] [address], [place], [address], [facility] 03/25/2024 15:05:01 OBGyn Episode No OBEpisode recorded.
== END 2024-09-16 13:14 | disposition home or self-care (01) ==
LOC: HO.HGS 12:55
PROVIDERS: PCP Student in an Organized Health Care Education/Training Program; Visit Provider Surgery
DX: N60.92 Unspecified benign mammary dysplasia of left breast (principal); Z91.89 Other specified personal risk factors, not elsewhere classified; Z80.3 Family history of malignant neoplasm of breast
CPT/HCPCS: 99213

== ENCOUNTER 2024-09-27 15:51 | Outpatient (REF) | payer OTHER, SELFPAY ==
--- NOTE | ~2024-09-27 | MR_ITS ---
EXAMINATION: MR ABDOMEN WITHOUT THEN WITH IV CONTRAST HISTORY: R16.0 - Hepatomegaly, not elsewhere classified COMPARISON: Correlation is made with the prior study dated 08/19/2024 TECHNIQUE: Axial in and out of phase T1-weighted gradient echo, axial diffusion weighted, and axial and coronal HASTE T2 with fat saturation images were obtained through the abdomen. Subsequently, fat suppressed axial and coronal T1-weighted images were obtained after the intravenous administration of 10 mL Gadavist. FINDINGS: Liver: There is enlargement of the right lobe. There is diffuse loss of signal intensity in the liver on opposed phase imaging, consistent with steatosis. There is a 7 mm cyst in segment IV and an 11 mm cyst in segment II. A 2.1 cm T2 hyperintense mass is identified in segment V which demonstrates peripheral nodular enhancement with fill-in over time, compatible with a hemangioma. The hepatic and portal veins are patent. There is no intrahepatic biliary dilatation. Gallbladder/biliary tree: No gallstones are identified. The common bile duct is normal in caliber. No intraluminal filling defects are identified to suggest choledocholithiasis. Spleen: The spleen is unremarkable. Pancreas: The pancreas is unremarkable. There is no enhancing pancreatic mass. The pancreatic duct is normal in caliber. Adrenals: The adrenal glands are unremarkable. Kidneys: The kidneys are unremarkable. There is no hydronephrosis. Lymph nodes: There is no retroperitoneal lymphadenopathy in the upper abdomen. Fluid: There is no ascites in the upper abdomen. Visualized bowel: The visualized small and large bowel loops are unremarkable in appearance. Visualized bones: There is increased T1 and T2 signal intensity in the T10 vertebral body, consistent with a hemangioma. MR/MR abdomen wo/w con IMPRESSION: 1. Hepatomegaly and hepatic steatosis. 2. 2.1 cm hemangioma in segment V of the liver. 3. Subcentimeter cysts in the left lobe of the liver. 4. T10 vertebral hemangioma. Electronically signed by: Sarthak Peres MD 09/29/2024 07:27 AM EDT
--- OUTSIDE RECORDS SUMMARY | 2024-09-27 15:58 | XMS_ITS | Clinical Summary ---
Author Organization [facility] Address [address] [place] [address] Phone Care Team Providers Care Paper Supervisor Name Role Phone Michelle Castillo MD Primary Care Prov ider Immunizations Immunization Administration Dates Next Due COVID-19 (Pre-12/25) Moderna Vaccine, mRNA, PF 01/21/2021,03/25/2020,02/26/2020 Influenza Quadrivalent Preservative Free IM 11/05 Social History Tobacco Use Types Packs/Day Years Used Date Smoking Tobacco: Never Assessed Education Answer Date Recorded Are you interested in more education? Not on олег e 06/30/2022 Are you concerned about learning? Not on file 06/30/2022 No 06/30/2022 No 06/30/2022 Digital Access Answer Date Recorded No 07/29/2022 No 07/29/2022 No 07/29/2022 Reliable internet access at home? Not on file 07/29/2022 Device with a working camera? Not on file Comments Unknown Sex and Gender Information Value Date Recorded Sex Assigned at Not on file Legal Sex Female 8:53 AM EDT Gender Identity Not on file Sexual Orientation Not on file Plan of Treatment Health Maintenance Due Date Last Done Comments DEPRESSION SCREENING 1987 SMOKING Hx and SMOKELESS TOBACCO SCREENING 10/06/1988 HEPATITIS C SCREENING 10/06/1993 HIV ONE-TIME SCREENING (18-65 YEARS) 10/06/1993 PAP SMEAR 10/06/1996 MAMMOGRAM 2015 COLOGUARD 10/06/2020 COLONOSCOPY 10/06/2020 COLORECTAL CANCER SCREENING 10/06/2020 FIT TEST 10/06/2020 FOBT 10/06/2020 SIGMOIDOSCOPY 10/06/2020 VIRTUAL COLONOSCOPY 10/06/2020 Adult Td,Tdap Booster 02/20/2023 02/20/2013, 992 COVID-19 VACCINE ( season) 2023 01/21/2021, 03/25/2020, 03/25/2020, Additional history exists LIPID PANEL 03/30/2025 03/30/2020 HEPATITIS A VACCINES Aged Out No long er eligible based on patient's age to complete this topic HIB VACCINES Aged Out No longer eligi ble based on patient's age to complete this topic MENINGOCOCCAL VACCINES (ACWY) Aged Out No longer eligible based on patient's age to complete this topic MENINGOCOCCAL VACCINES (B) Aged Out N o longer eligible based on patient's age to complete this topic PNEUMOCOCCAL VACCINES (0-49 years) Aged Out No longer eligible based on patient's age to complete this topic Medical Devices Not on file Procedures Procedure Name Priority Date/Time Associated Diagnosis Comments LIPID PANEL Routine 03/30/2020 7:06 AM EST Fatigue, unspecified type from Last 3 Months or Most Recently Relevant to Health Maintenance Results * Lipid panel (03/30/2020 7:06 AM EST) HDL 53 mg/dL [facility] Comment: Interpretation <40 mg/dL: Low HDL cholesterol (major risk factor for CHD) Greater than or equal to 60 mg/dL: High HDL cholesterol ( negative risk factor for CHD) HDL - cholesterol is affected by a number of factors, e.g. smoking, excerise, hormones, sex and age. CHOLESTEROL 173 0 - 240 mg/dL [facility] TRIGLYCERIDES 83 30 - 160 mg/dL [facility] LDL 103 50 - 129 mg/dL [facility] Comment: LDL levels in terms of risk for coronary heart disease: <100 mg/dL: Optimal 100-129 mg/dL: Near or above optimal 130-159 mg/dL: Borderline high 160-189 mg/dL: High >190 mg/dL: Very High CARDIAC RISK RATIO 3.3 3.3 - 4.4 C [facility] Blood 03/30/2020 7:06 AM EST 03/30/2020 7:08 AM EST us Michelle Casitllo MD LAB BLOOD ORDERABL ES Final Result [address] [id number] from Last 3 Months or Most Recently Relevant to Health Maintenance Insurance EMPLOYEES FAMILY EMPLOYEES FAMILY EMPLOYEES FAMILY EMPLOYEES FAMILY EMPLOYEES FAMILY EMPLOYEES FAMILY EMPLOYEES FAMILY EMPLOYEES FAMILY EMPLOYEES FAMILY Care Teams Paper Supervisor Relationship Specialty Start Date End Date Michelle Castillo MD [address] [place] [phone] PCP - General Internal Medicine 03/30/20 Additional Source Comments The information contained in this document represents components of the legal health record. It is not the complete legal health record.[facility]
--- OUTSIDE RECORDS SUMMARY | 2024-09-27 15:58 | XMS_ITS | Data Portability ---
Author Organization [facility], Main Office Address [address] [place] [address] Care Team Providers Care Anatomy Professor Name Role Phone [facility] Sleep Medi cine CEASAR CHOUDHARY Plastic/Reconstructive Surgeon KHAI JOYCE Sports Medicine EDITH HINOJOSA Vat Cleaner [phone] AMBER PIÑA Primary Care Provider LULU MORALES Referring Provider [phone] EVONNE ARECHIGA Referring Provider Assessment Encounter Date [...] ed. Lab lipid panel, serum 2024 025 [facility], [address] [place] [address], [place], [address], 14:10:39 BMP, serum or plasma 2024 025 [facility], [address] [place] [address], [address], 5 14:10:39 CBC w/ auto diff 2024 025 [facility], [address] [place] [address], [address], 5 14:10:39 TSH + free T4, serum 2024 025 [facility], [address] [place] [address], [address], 5 14:10:39 vitami n D, 25-hyd stanton, total, serum 2024 025 [facility], [address] [place] [address], [address], 5 14:10:39 BMP, serum or plasma 2023 024 [facility], [address] [place] [address], [address], 4 14:23:17 hepati c functi on panel, serum 2023 024 [facility], [address] [place] [address], [address], 4 14:23:17 lipid panel, blood 2022 023 [facility], [address] [place] [address], [address], 3 11:09:25 BMP, serum or plasma [email or web address] [place] [address] Laboratory, [address] [place] [address], [address], 3 16:08:27 CBC w/ auto diff [email or web address] [place] [address] Laboratory, [address] [place] [address], [place], [address], 3 16:08:27 TSH, serum or plasma [email or web address] [facility], [address] [place] [address], [address], 3 16:08:27 T4, free, serum 2022 023 [email or web address] [facility], [address] [place] [address], [address], 4 10:27:55 vitami n D, 25-hyd stanton, total, serum [email or web address] [facility], [address] [place] [address], [address], 3 16:08:26 hepati tis C virus Ab, serum [email or web address] [facility], [address] [place] [address], [place], [address], 3 16:08:27 Referral breast surger y referr al - for remova l of calcif icatio n 2022 023 Evonne Arechiga MD, [address] [place] [address] Dr, [place], [address], 4 14:47:48 Procedures None record ed. Surgeries None record ed. Imaging None record ed. Medication Orders levoth yroxin e 112 mcg capsul e 2024 025 [id number] [facility], [address] [place] [address], [place], [address], 5 07:42:06 escita lopram 10 mg tablet 2024 025 [facility], [address] [place] [address], [address], 5 14:05:43 escita lopram 10 mg tablet 2023 024 [facility], [address] [place] [address], [address], 4 13:47:25 fluoxe amanda 10 mg capsul e [address] [id number], [address] [place], [address], 4 13:47:56 polymy matthew B sulfat e 10,000 unit-t rimeth oprim 1 mg/mL eye drops [address] [facility], [address] [place], [address], 4 14:06:30 Contra ve 8 mg-90 mg tablet ,exten ded releas e 2022 023 [email or web address], [address] [place] [address], [address], 4 11:02:29 Patient TargetsNo targets recorded. Patient Instructions Encounter Date Encounter Id Patient Instructions Last Modified By Organization Details Last Modified Time 02/20/2023 [id number] Well Visit, Ages 18 to 65: Care Instructions Not available 02/20/2023 16:08:26 medical record request* [email or web address] Not available 02/21/2023 15:52:54 elin's thyroiditis: care instructions Not available 02/20/2023 16:08:26 starting a weigh t loss plan: care instructions Not available 02/20/2023 16:08:31 learning about mood disorders Not available 02/20/2023 16:08:27 06/13/2023 [id number] pinkeye: care instructions pmadden Not available 06/13/2023 11:23:28 Follow up if no improvement or if symptoms worsen. pmadden Not available 06/13/2023 11:16:56 09/05/2023 [id number] Patient understands usual risk, benefits and side effects. Not available 09/05/2023 14:29:56 03/25/2024 [id number] elin's thyroiditis: care instructions Not available 03/25/2024 [...] (PROC ) No observ ation record ed. [address] [place], [address], 01/23/2023 14:03:39 06/27/19 24 06/27/2023 MAMMO , diagn ostic , digit al, unila teral No observ ation record ed. [address] [place], [address], 06/27/2023 12:01:04 07/27/19 24 07/09/2023 mammo gram, follo w up* No observ ation record ed. [address] (Medical Records) [address] [facility] [place], [address], 07/28/2023 08:56:20 08/01/19 24 08/01/2023 XR, finge r(s) No observ ation record ed. [address] (Medical Records) [address] [place] [place], [address], 08/01/2023 16:01:25 08/23/19 24 08/14/2023 MRI, breas t, bilat eral, w/o contr ast No observ ation record ed. [address] (Medical Records) [address] [place], [address], 08/23/2023 12:14:44 10/20/19 24 10/20/2023 US, duple x, venou s, lower extre mity No observ ation record ed. [address] (Medical Records) [address] [place], [address], 10/21/2023 14:44:57 01/02/20 24 12/03/2023 US, pelvi s, trans abdom inal + trans vagin al No observ ation record ed. [address] (Medical Records) [address] [place], [address], 01/02/2024 11:25:13 03/03/20 24 02/19/2024 MAMMO , scree hortencia, digit al, bilat eral No observ ation record ed. [address] [place], [address], 03/04/2024 06:55:15 05/31/19 25 05/30/2024 bone densi ty No observ ation record ed. [email or web address] [address] [place], [address], 06/16/2024 10:45:19 08/23/19 25 08/19/2024 MRI, breas t, bilat eral, w/o contr ast No observ ation record ed. [address] (Medical Records) [address] [place], [address], 08/23/2024 16:14:41 Result Notes None recorded. Problems Name Problem SNOMED Code Status Onset Date Resolution Date Notes Provider Name and Address Organization Details Recorded Time Elin thyroidit is 52620297 Active 2016 Not Available [facility] 2 09:53:37 Depressiv e disorder 85218369 Completed 201607/04/2016 Michelle peralta [facility] 8 11:24:10 Depressiv e disorder 89481085 Completed 201607/06/2017 Michelle peralta [facility] 8 11:24:10 Family history of malignant neoplasm 553617311 Completed 201702/20/2023 AMBER PIÑA MD [address], [place], [address] , [facility] 3 06:11:32 Lumbago with sciatica 001236861 Completed 202003/29/2020 Dyan Newman PA-C [address] [facility] [address], [place], [address] , [facility] 1 16:16:07 Degenerat ion of lumbosacr al intervert ebral disc 15016830 Active 2020 Not Available [facility] 2 09:53:37 Acute conjuncti vitis of left eye 69332547594 9105 Completed 202102/20/2023 AMBER PIÑA MD [address], [place], [address] , [facility] 3 06:11:14 Vitamin D deficienc y 13877671 Active 2021 Not Available [facility] 2 09:53:37 Atypical lobular hyperplas ia of left breast 94019441405 079448 Active 2022 AMBER PIÑA MD [address], [place], [address] , [facility] 3 10:14:34 Severe major depressio n, single episode 44025850219 5 Active 2023 Rayne peralta [facility] 14:22:15 Problem Notes None recorded. Procedures Surgical History Date Name Laterality Status Provider Name and Address Organization Details Recorded Time 02/03/20 24 Most Recent Mammogram completed Sharlene May MA [facility] 03/25/2024 13:50:47 07/09/19 24 lumpectomy of breast completed Mary Louise [facility] 07/10/2023 08:50:04 05/06/19 23 Colonoscopy completed Mary Louise [facility] 05/08/2022 09:39:32 06/06/19 22 Mammogram both breasts completed Ling Aparicio [facility] 06/09/2021 12:36:24 05/10/19 22 Date of Last Pap Smear completed Sharlene May MA [facility] 02/20/2023 14:20:29 05/05/19 20 reduction plasty of bilateral breasts completed Sherri Salazar [facility] 05/09/2019 09:52:35 05/05/19 20 abdominoplasty completed Sherri Salazar [facility] 05/09/2019 09:52:50 05/05/19 20 Other completed Sharlene May MA [facility] 05/05/2021 15:24:13 08/13/19 07 Caesarean Section completed Sharlene May MA [facility] 07/04/2016 10:47:14 12/12/19 04 Caesarean Section completed Sharlene May MA [facility] 07/04/2016 10:47:14 Breast Biopsy completed Sharlene May MA [facility] 05/05/2021 15:24:13 Breast Surgery completed Sharlene May MA [facility] 05/05/2021 15:24:13 Imaging Results None recorded. Procedure Notes None recorded. Medical Equipment None Reported. Allergies Allergen ID Allergen Name Allergen Category Reaction Reaction Severity Criticality Documentation Date Start Date Code Code System Note Provider Name and Address Organization Details Recorded Time 78268 Product containin g penicilli n (product) medicatio n hives severe Not available 07/04/2016 78816 8001 SNOMED NELSON Topete, [facility] 7 10:46:23 54326 vancomyci n medicatio n anaphylax is Not available [facility] 09/05/2023 26323 RxNorm Anju UlloajeffedieMIHIR, [facility] 4 14:06:03 Medications Name Sig [...] Updated DateTime 5 167.64 cm 30.4 kg/m2 08573.1 7 g 99 % 99 % 73 /min 98.2 [degF] 116/68 mm[Hg] Sharlene May MA [facility] 5 13:48:36 Date Recorded Body height Body mass index (BMI) Body weight Heart rate Oxygen saturation Oxygen saturation in Arterial blood by Pulse oximetry Body temperature Systolic And Diastolic Provider Name and Address Organization Details Last Updated DateTime 4 167.64 cm 30.2 kg/m2 30069.7 7 g 67 /min 98 % 98 % 98.3 [degF] 110/68 mm[Hg] Jeanette preston MA [facility] 4 11:02:01 Date Recorded Body height Body mass index (BMI) Body weight Heart rate Oxygen saturation Oxygen saturation in Arterial blood by Pulse oximetry Body temperature Systolic And Diastolic Provider Name and Address Organization Details Last Updated DateTime 4 167.64 cm 30.9 kg/m2 86274.5 4 g 70 /min 99 % 99 % 98.3 [degF] 128/85 mm[Hg] [facility]agen [facility] 4 14:05:28 Date Recorded Body height Body mass index (BMI) Body weight Heart rate Oxygen saturation Oxygen saturation in Arterial blood by Pulse oximetry Body temperature Systolic And Diastolic Provider Name and Address Organization Details Last Updated DateTime 4 167.64 cm 31.2 kg/m2 56282.3 3 g 80 /min 97 % 97 % 98.3 [degF] 113/69 mm[Hg] Jeanette preston MA [facility] 4 13:02:11 Date Recorded Body height Body mass index (BMI) Body weight Oxygen saturation Oxygen saturation in Arterial blood by Pulse oximetry Heart rate Body temperature Systolic And Diastolic Provider Name and Address Organization Details Last Updated DateTime 3 167.64 cm 30.1 kg/m2 81541.9 8 g 98 % 98 % 76 /min 98.1 [degF] 106/65 mm[Hg] Sharlene May MA [facility] 3 14:18:24 Social History Question Answer Notes LastModified by Organizat ion Details LastModified Time Tobacco Smoking Status [facility] 10:47:06 Is Blood Transfusion Acceptable In An Emergency? Yes [email or web address] Information not available 07/04/2016 What Is Your Level Of Caffeine Consumption? None [email or web address] Information not available 07/04/2016 How Much Tobacco Do You Chew? None [email or web address] Information not available 07/04/2016 What Type Of Diet Are You Following? REGULAR [email or web address] Information not available 07/04/2016 Which Illicit Or Recreational Drugs Have You Used? Never Information not available 07/04/2016 Live Alone Or With Others? With Others [email or web address] Information not available 02/20/2023 Do You Take Precautions To Prevent Distracted Driving? Yes [email or web address] Information not available 07/04/2016 How Often Do You Need To Have Someone Help You When You Read Instructions, Pamphlets, Or Other Written Material From Your Doctor Or Pharmacy? Never [email or web address] Information not available 07/04/2016 Have You Served In The ? No [email or web address] Information not available 07/04/2016 Have You Or Anyone In Your Household Had Any Of The Following Symptoms In The Last 14 Days: Sore Throat, Cough, Chills, Body Aches For Unknown Reasons, Shortness Of Breath For Unknown Reasons, Loss Of Smell, Loss Of Taste, Fever At Or Greater Than 100 Degrees Fahrenheit? No [email or web address] Information not available 04/02/2020 Are You Or Anyone In Your Household A Health Care Provider Or Emergency Responder? Yes Works As [employer] Information not available 04/02/2020 To The Best Of Your Knowledge Have You Been In Close Proximity To Any Individual Who Tested Positive For COVID-19? No Information not available 04/02/2020 *AWV ONLY* Are You Presently Prescribed Opioid Medication By PCP Or Specialist? If YES -Provider Assess The Benefit For Other, Non-opioid Pain Therapies Instead, Even If The Patient Does Not Have OUD But Is Possibly At Risk. No [email or web address] Information not available 05/05/2021 Have You Recently Traveled To A COVID-19 High Risk Area Or Gathering In The Last 10 Days? No [email or web address] Information not available 04/02/2020 What Was The Date Of Your Most Recent Tobacco Screening? 03/25/2024 [email or web address] Information not available 03/25/2024 How Many Children Do You Have? 2 Elzbieta Information not available 11/07/2023 Do You Use Protection During Sex? No [email or web address] Information not available 07/04/2016 Do You Use Your Seat Belt Or Car Seat Routinely? Yes [email or web address] Information not available 05/05/2021 Seat Belts Used Routinely Yes [email or web address] Information not available 02/20/2023 Are You Sexually Active? Yes [email or web address] Information not available 07/04/2016 Smoke Alarm In Home Yes [email or web address] Information not available 02/20/2023 Do You Have Smoke And Carbon Monoxide Detectors In Your Home? Yes Information not available 05/05/2021 Are You Passively Exposed To Smoke? No [email or web address] Information not available 07/04/2016 How Much Tobacco Do You Smoke? No [email or web address] Information not available 02/20/2023 Do You Use Sunscreen Routinely? Yes [email or web address] Information not available 07/04/2016 Sex: Unknown Functional Status Question Answer Note LastModified by Organizat ion Details LastModified Time Do you use any illicit or recreational drugs? No Information not available 11/07/2023 Do you or have you ever used any other forms of tobacco or nicotine? No Information not available 11/07/2023 What is your level of alcohol consumption? None [email or web address] Information not available 07/04/2016 Do you or have you ever used smokeless tobacco? Never used smokeless tobacco [email or web address] Information not available 12/05/2018 Are you currently employed? Yes [email or web address] Information not available 07/04/2016 Are you able to walk? YESWOREST [email or web address] Information not available 02/20/2023 Are you able to care for yourself independently? 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 Never used electronic cigarettes [email or web address] Information not available 02/20/2023 What is your exercise level? Occasional [email or web address] Information not available 07/04/2016 Mental Status None recorded. Family History Relationship Description Onset Age of this Age Resolved Age Notes LastModified by Organization Details LastModified Time Paternal Grandfather Harmful pattern of use of alcohol [email or web address] Not available 07/04 10:46:44 Paternal Grandfather Malignant neoplasm of lung [email or web address] Not available 07/04 10:46:44 Paternal Grandfather Malignant tumor of colon [email or web address] Not available 07/04 10:46:44 Maternal Grandmother Alzheimer's disease [email or web address] Not available 07/04 10:46:44 Maternal Grandmother Hypercholest erolemia aobqslcl61 Not available 07/04 10:46:44 Maternal Grandmother Disorder of thyroid gland [email or web address] Not available 07/04 10:46:44 Maternal Grandmother Arthritis [email or web address] Not available 0 07/04/2016 10:46:44 Maternal Grandmother Obesity [email or web address] Not available 04/2016 10:46:44 Maternal Grandmother Diabetes mellitus [email or web address] Not available 07/04 10:46:44 Mother Malignant tumor of cervix [email or web address] Not available 05/05 15:23:56 Paternal Grandmother Harmful pattern of use of alcohol [email or web address] Not available 05/05 15:23:56 Paternal Grandmother Malignant tumor of breast [email or web address] Not available 07/04 10:46:44 Paternal Grandmother Malignant neoplasm of lung [email or web address] Not available 07/04 10:46:44 Son Attention deficit hyperactivit y disorder 8 [email or web address] Not available 02/02 14:13:19 Son Anxiety disorder 10 [email or web address] Not available 02/20 14:13:19 Maternal Aunt Asthma [email or web address] Not av ailable 07/04/2016 10:46:44 Maternal Aunt Depressive disorder suicid e in matern al cousin lgladingdilor enz Not available 07/06/2017 11:26:53 Father Chronic obstructive pulmonary disease ocwnvwuj97 Not available 07/04 10:46:44 Father Hypercholest erolemia [email or web address] Not available 05/05 15:23:56 Father Diabetes mellitus [email or web address] Not available 05/05 15:23:56 Father Malignant neoplasm of lung vldmtlup41 Not available 07/04 10:46:44 Father Harmful pattern of use of alcohol fgiqitsz03 Not available 05/05 15:23:56 Father Hypertensive disorder okrhetlq58 Not available 07/04 10:46:44 Father Allergy [email or web address] Not availabl e 02/20/2023 14:13:19 Father Malignant tumor of pancreas 58 59 [email or web address] Not available 07/04 10:50:21 Maternal Grandfather Chronic obstructive pulmonary disease Not available 05/05 15:23:56 Paternal Aunt Harmful pattern of use of alcohol emfyrcvg49 Not available 05/05 15:23:56 Paternal Aunt Harmful pattern of use of alcohol whtyhzzv56 Not available 05/05 15:23:56 Paternal Aunt Malignant tumor of breast ucyoxvbv85 Not available 05/05 15:23:56 Paternal Aunt Malignant neoplasm of lung ufefucpu93 Not available 07/04 10:46:44 Paternal Aunt Malignant neoplasm of lung [email or web address] Not available 05/05 15:23:56 Paternal Uncle Hypercholest erolemia efxkbobu78 Not available 05/05 15:23:56 Paternal Uncle Diabetes mellitus [email or web address] Not available 05/05 15:23:56 Medical History Condition Response Other N Gout N Kidney Stones N Blood Diseases N Hyperthyroidism N Breast Cancer N Lung Disease N Hypothyroidism Y Depression Y COPD N Defects or Inherited Disease N Anesthesia Complications N Headaches/Migraines Y Varicose Veins N Anxiety Disorder Y Obesity Y Vision or Eye Problems N Arthritis Y Head Injury/Concussion N Polyps N Infertility N Congenital Anomalies N Acid Reflux (GERD) [...] Recorded Time DTaP 6 completed Mary peralta [facility] 01/31/2022 12:27:22 DTaP 6 lex peralta [facility] 01/31/2022 12:27:22 DTaP 7 completed Mary peralta [facility] 01/31/2022 12:27:21 DTaP 8 completed Mary peralta [facility] 01/31/2022 12:27:22 DTaP 2 completed Mary peralta [facility] 01/31/2022 12:27:22 Td (adult) 2 lex peralta [facility] 01/31/2022 12:27:22 OPV, trivalent 6 completed Mary Louise null, [facility] 01/31/2022 12:27:22 OPV, trivalent 6 completed Mary Louise null, [facility] 01/31/2022 12:27:21 OPV, trivalent 7 completed Mary Louise null, [facility] 01/31/2022 12:27:22 OPV, trivalent 8 completed Mary Louise null, [facility] 01/31/2022 12:27:21 OPV, trivalent 2 completed Mary Louise null, [facility] 01/31/2022 12:27:22 MMR 7 completed Mary Louise null, [facility] 01/31/2022 12:27:22 MMR 0 completed Mary Louise null, [facility] 01/31/2022 12:27:22 varicella 4 completed Mary Louise null, [facility] 01/31/2022 12:27:22 Hep B, adult 6 completed Mary Louise null, [facility] 01/31/2022 12:27:22 Hep B, adult 5 completed Mary Louise null, [facility] 01/31/2022 12:27:21 Hep B, adult 6 completed Mary Louise null, [facility] 01/31/2022 12:27:21 Tdap 3 completed Mary Louise null, [facility] 01/31/2022 12:27:21 Influenza, split virus, quadrivalent, preservative 7 completed Mary Louise null, [facility] 01/31/2022 12:27:21 Influenza, split virus, quadrivalent, preservative 9 [facility] 12:27:22 Influenza, split virus, quadrivalent, preservative 9 completed Sharlene May MA null, [facility] 02/20/2023 14:18:46 Influenza, split virus, quadrivalent, preservative 0 completed Mary Louise null, [facility] 01/31/2022 12:27:22 Influenza, split virus, quadrivalent, preservative 1 completed [facility] 12:27:22 Influenza, split virus, trivalent, preservative 3 completed [facility] 12:27:21 Influenza, split virus, trivalent, preservative 3 [facility] 12:27:21 Influenza, split virus, quadrivalent, preservative 7 completed [facility] 12:27:21 Influenza, MDCK, quadrivalent, PF 8 completed [facility] 12:27:22 Influenza, split virus, quadrivalent, PF 1 completed Mary Louise null, [facility] 01/31/2022 12:27:22 COVID-19, mRNA, LNP-S, PF, 100 mcg/0.5mL dose or 50 mcg/0.25mL dose 0 completed Marybridgette Louise null, [facility] 01/31/2022 12:27:22 COVID-19, mRNA, LNP-S, PF, 100 mcg/0.5mL dose or 50 mcg/0.25mL dose 1 completed [facility] 12:27:22 Influenza, split virus, trivalent, preservative 4 completed Mary Louise null, [facility] 01/31/2022 12:27:22 Influenza, split virus, trivalent, preservative 5 completed Mary Louise null, [facility] 01/31/2022 12:27:22 COVID-19, mRNA, LNP-S, bivalent, PF, 50 mcg/0.5 mL or 25mcg/0.25 mL dose 2 completed Sharlene May MA null, [facility] 2022 09:19:17 Influenza, split virus, quadrivalent, PF 2 completed Sharlene May MA null, [facility] 02/20/2023 14:18:46 COVID-19, mRNA, LNP-S, PF, 30 mcg/0.3 mL dose 1 completed Sharlene May MA null, [facility] 2022 09:19:17 Tdap 3 completed Sharlene May MA null, [facility] 02/20/2023 14:18:46 COVID-19, mRNA, LNP-S, PF, 100 mcg/0.5mL dose or 50 mcg/0.25mL dose 1 completed Sharlene May MA null, [facility] 02/20/2023 14:18:46 COVID-19, mRNA, LNP-S, PF, 100 mcg/0.5mL dose or 50 mcg/0.25mL dose 1 completed Jeanette Cortez s MA null, [facility] 06/13/2023 10:56:34 COVID-19, mRNA, LNP-S, PF, 30 mcg/0.3 mL dose 0 completed [facility] 14:18:46 Influenza, MDCK, quadrivalent, PF 4 completed Anju Hagen WOOL GROWER null, [facility] 09/05/2023 14:05:43 COVID-19, mRNA, LNP-S, PF, alyssa-sucrose, 30 mcg/0.3 mL 4 completed Anju Hagen LPN null, [facility] 09/05/2023 14:05:43 Influenza, MDCK, trivalent, PF 5 completed Mary Louise null, [facility] 03/31/2024 13:01:45 Past Encounters Encounter ID Performer Location Encounter Start Date Encounter Closed Date Diagnosis/Indication Diagnosis SNOMED-CT Code Diagnosis ICD10 Code Diagnosis Note [id number] Michelle dean MD Main Office [address] [facility] [address] [place] [address] 07/04/2016 10:33:00 07/04/2016 11:53:47 Adult health examination 608732304 Z00.00 could eat better, thinks less sweets and do more veggies. is active, would liek to lose weight, utd on screening Hypothyroidism 17567319 E03.9 nl level recently. Elin thyroiditis 21 481603 E06.3 treated by food safety coordinator Single jing or depressive episode, in full remission [id number] F32.5 pt weaned off zoloft last year, had been on for life change when she moved up here and 2 episodes of post depression , feels well. exercises 2-3 times a week, walking, videos Hypercholesterolemia 136 32000 E78.2 check fasting Fatigue 58830259 R53.83 Sensation of blocked ear 878008351 H93.299 left ear canal is blocked with cerumen Family his tory of breast cancer 699173176 Z80.3 We spoke about pts family of maternal aunt and MGM with breast cancer at 60, father with pancreatic cancer, I gave pt the number for genetic screening for family cancer syndrome, she will choose if she wants to pursue this, no first degree relative with breast cancer, no role for BRCA testing that I see [id number] Frandy Newman PA-C Main Office [address] [facility] [address] [place] [address] 10/05/2016 15:40:46 10/09/2016 14:54:48 Edema of knee 925593314 R60.0 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 will give trial of neoprene sleeve, aleve, ice p activity - call if worse. [id number] Michelle dean MD Main Office [address] [facility] [address] [place] [address] 07/06/2017 10:24:02 07/06/2017 11:56:04 Adult health examination 347053296 Z00.00 could eat better, thinks less sweets and do more veggies. is active, would liek to lose weight, utd on screening Hypercholesterolemia 136 22953 E78.2 check fasting Fatigue 64962488 R53.83 check labs Elin thyroiditis 21 936745 E06.3 treated by endo Hypothyroidism 66277678 E03.9 nl level recently. Mammography abnormal 168 188008 R92.8 had bx, Dr Barrett orders her mammograms and is her food safety coordinator Gastroesop hageal reflux disease 886122208 K21.9 epigastric burning, will start med Major depr ession single episode, in partial remission 61474012 F32.4 pt will set up counseling and has sleep disruption , only gets 4 hours a night, interrupte d. Family his tory of malignant neoplasm 227118557 Z80.9 pt will get info form uncles testing for genetic predisposi tion to cancer, we will discuss at followup, she is yina g seeing genetic testing/co unseling [id number] Michelle dean MD Main Office [address] [facility] [address] [place] [address] 12/05/2018 08:15:41 12/05/2018 09:50:55 Adult health examination 745703231 Z00.00 continue exercise and resistance training. utd with screening Anti-nucle ar factor detected 905950936 R76.8 check DS DNA , saw rheum and he felt not from SLE, more of a false positive, symptoms are fatigue, hair thiinning adn joint pain but all improving Pain of mu ltiple joints 08330984 M25.50 check albs, dx with OA of knees and bursitis of hips by rheum, continue exercise and stretching Fatigue 71936557 R53.83 sleep eval [id number] Michelle dean MD Main Office [address] [address] [place] [address] 03/12/2019 09:39:13 03/12/2019 10:28:59 Diarrhea 62159949 R19.7 talked about low fodmap eating and gave info Low back pain 260085132 M54.5 from over stretching , return if worsens or any weakness, strength is normal [id number] Jose Jiang MD [facility] [address] [address] [place] [address] 03/08/2020 14:15:15 03/08/2020 15:23:02 Lumbago with sciatica 544758049 M54.40 advised to be seen in office tomorrow for the exam. STart muscle relaxant at HS today and xrays of the LS spine today. Continue icing and motrin 600 q 6 hrs. Pain in coccyx 68791376 M53.3 [id number] Jose Jiang MD Main Office [address] [address] [place] [address] 03/09/2020 08:31:18 03/09/2020 09:53:52 Lumbago with sciatica 772381633 M54.40 advised to be seen in office tomorrow for the exam. STart muscle relaxant at HS today and xrays of the LS spine today. Continue icing and motrin 600 q 6 hrs. [id number] Michelle dean MD Main Office [address] [address] [place] [address] 04/02/2020 14:48:12 04/02/2020 15:51:52 Adult health examination 117730128 Z00.00 continue exercise and resistance training. set up mammogram and pap smear Degenerati on of lumbosacral intervertebral disc 18338108 M51.37 Screening for malignant neoplasm of cervix 418676884 Z12.4 Screening for malignant neoplasm of breast 455256915 Z12.39 Low back pain 699438936 M54.5 from over stretching , return if worsens or any weakness, strength is normal [id number] Michelle dean MD [facility] h [address] [facility] [address] [place] [place] [address] 04/26/2020 13:41:31 04/27/2020 11:55:07 Acute conjunctivitis 99391481 H10.33 SYMPTOMS: which eye(s)? bilateral redness? yes [...] if worse or eye pain Antibiotic treatment [id number] Michelle dean MD Main Office [address] [place] [address] 05/05/2021 15:23:02 05/05/2021 16:06:57 Adult health examination 546437793 Z00.00 pt is due for mammogram, order ptu and pt to arrange, will refer for colonoscop y, is exercising Elin thyroiditis 21 606396 E06.3 check labs, cotninu med Body mass index 25-29 - overweight 119679642 Z68.29 Screening for malignant neoplasm of colon 328622126 Z12.11 pt will make appt with GI Family his tory of malignant neoplasm 613215065 Z80.9 pt will get info form uncles testing for genetic predisposi tion to cancer, we will discuss at followup, she is yina [place] seeing genetic testing/co unseling Screening for malignant neoplasm of breast 546512915 Z12.39 pt ot arrange Mild memor y disturbance 559573109 R41.3 brought up at end of visit, word finding, some dates, not progressin g, will get labs and refer for neuropsych testing she is interested Overweight 591133661 E66 .3 [id number] [facility] [address] [facility] [address] [place] [address] 10/12/2021 09:12:15 10/12/2021 15:48:39 Red eye 267778593 H11.432 SYMPTOMS:w hich eye(s)? leftrednes s? yesdischar [...] prescribe) Acute conj unctivitis of left eye 5145398693 12295 H10.32 Warm compresses and wipe away crust, wash hands prior to touching eyes/ drops. Polytrim eye drops every 6 hours as directed x 7-10 days. if sx worsen or are not better please call/ return. [id number] Cici Murillo MD Main Office [address] [place] [address] 2022 09:06:43 2022 10:10:34 Laceration of finger of right hand 3423112059 3013244 S61.210A Wound is well-heale d with some scar tissue. Advised the patient she can put some Vaseline to it. Reassuranc e provided. [id number] AMBER PIÑA MD Main Office [address] [place] [address] 02/20/2023 14:00:13 02/20/2023 14:52:53 Adult health examination 228708634 Z00.00 Health Maintenanc e FemaleA) Patient was [...] scan:Date: due at 65Result: ??? C) Vaccines:I bianca: will getTdAP: 09/29/2022Z melanie: due at 32ERO37: due at 07MXNC84: due at 64PCL80:PC V15:COVID: 02/26/2020 , 03/25/2020, 01/21/2021 , 01/05/2022 D) Routine blood work orderedE) Updated patient's history RTC in one year for annual exam or sooner if any acute complaints Atypical l obular hyperplasia of left breast 5411366638 7154053 N60.92 - diagnosed on biospy done on 01/24- pt was seen by breast surgery at [facility] on 02/14/23> recommende d tamoxifen and surgical consultati on for removal of cells- pt referred to surgery Degenerati on of lumbosacral intervertebral disc 66091758 M51.37 - currently under good control Vitamin D deficiency 347 55473 E55.9 - will get levels- pt has completed the once weekly medication not currently on any supplement ation- recommende d taking a 1000 units daily Elin thyroiditis 21 750136 E06.3 - will check levels- c/w levothyrox ine 112mcg at this time Fatigue 69112009 R53.83 Z00.00 Hyperlipidemia 47975245 E78.5 Z00.00 Hepatitis C screening 41 7441283 Z11.59 Mood disorder 99321019 F 39 - PHQ-9 core of 11- pt is very stressed due to her weight and most recent breast cancer finding- will continue to monitor Body mass index 30+ - obesity 763810371 Z68.30 E66.9 - BMI of 30.1- Cut [...] contrave after patient lets know the pharmacy. [id number] Srinivas Miller MD Main Office [address] [place] [address] 06/13/2023 10:38:03 06/13/2023 11:27:28 Acute conjunctivitis 24095711 H10.30 SYMPTOMS: which eye(s)? left redness? yes discharge? yes crusting or matting on waking? yes exposure to someone with conjunctiv itis? no POSSIBLE CONTRAINDI CATIONS TO TELEPHONE TREATMENT: eye pain? yes blurry vision? yes yesterday recent treatment (within 1 month)? no trauma? no lupus or rheumatoid arthritis? no PROVIDER ACTION Reviewed nursing notes? Recommende d action Antibiotic treatment [id number] Rip Pineda MD Main Office [address] [place] [address] 09/05/2023 13:48:37 09/05/2023 14:26:01 Severe major depression, single episode 7474982060 05 F32.2 PHQ-9 score of 23-has hx [...] 10mg QD and f/u in 4 weeks [id number] Rip Pineda MD Main Office [address] [address] [place] [address] 11/07/2023 12:47:52 11/07/2023 13:15:04 Severe major depression, single episode 6653734622 05 F32.2 PHQ-9 score of 0 and [...] is complete and f/u in 6 weeks [id number] AMBER PIÑA MD Main Office [address] [place] [address] 03/25/2024 13:30:29 03/25/2024 14:12:15 Adult health examination 762952444 Z00.00 Health Maintenanc e FemaleA) Patient was [...] due at 65Result: pt will check with [facility] if they can do bone density and will order after patient sends MD message C) Vaccines:I nfluenza: not this yearTdAP: 09/29/2022Z melanie: due at 89TWE14: due at 26KBDB94: due at 19QRI31:PC V15:COVID: 02/26/2020 , 03/25/2020, 01/21/2021 , 01/05/2022, 03/10/2023 D) Routine blood work orderedE) Updated patient's history RTC in one year for annual exam or sooner if any acute complaints Atypical l obular hyperplasia of left breast 3277423249 2824482 N60.92 - diagnosed on biospy done on 01/24- pt was seen by breast surgery at [facility] on 03/11/2024> currently on tamoxifen, pt will be on the medication for 5 years Elin thyroiditis 21 128814 E06.3 - will check levels- c/w levothyrox ine 112mcg at this time Severe jing or depression, single episode 4389494907 05 F32.2 - PHQ-9 score 0- c/w escitalopr am 10mg QD> does notice improvemen t on it, will consider stopping in the summer time- denies SI/HI- counsellin g provided Vitamin D deficiency 347 97058 E55.9 - will get levels- pt has completed the once weekly medication not currently on any supplement ation- recommende d taking a 1000 units daily Fatigue 44008889 R53.83 Z00.00 Hyperlipidemia 71692158 E78.5 Z00.00 FASTING Body mass index 30+ - obesity 059165473 Z68.30 E66.9 - BMI of 30.4- Cut [...] Grant Member ID Guarantor Name 09/15/2022 1 [facility] [id number] Lorri Phillips [id number] Lorri Jacqueline 09/15/2022 1 [facility] Lorri Phillips [id number] Lorri Khanurque 08/05/2024 1 [employer] [facility] [id number] Lorri Phillips [id number] Lorri Phillips Notes Date Note Type Note Provider Name and Address Organization Details Recorded Time 02/20/2023 text/html Generic HPI TemplateReported by Patient Lorri Phillips is a 47 year old F who presented to the clinic for her annual exam. Pt denies any emergency room visits or hospitalizations this year. Pt this year did have an abnormal breast imaging which needed a biospy. Pathology showed atypical lobular hyperplasia. Pt wanted to seek advise at [facility] before proceeding with any [...] walking 1 hour AMBER PIÑA MD [address] [address], [place], [address], [facility] 02/20/2023 16:47:28 06/13/2023 text/html Patient c/o left eye redness, itching, and discomfort x 4 days.+ am crustingno use of warm compresses Frandy Newman PA-C [address] [address], [place], [address], [facility] 06/13/2023 11:27:41 09/05/2023 text/html ROS as noted in the HPI Lorri is a 47yr old F who [...] of any SI or HI. Rayne peralta, [facility] [place] 09/18/2023 14:23:22 11/07/2023 text/html ROS as noted in the HPI Lorri is a 48yr old F who [...] any SI or HI. YULI LOVETT [address] [facility] [address], [place], [address], [facility] 11/07/2023 14:24:24 03/25/2024 text/html Generic HPI TemplateReported by Patient Lorri Phillips is a 48 year old F who presented [...] ever other day AMBER PIÑA MD [address], [place], [address], [facility] 03/25/2024 15:05:01 OBGyn Episode No OBEpisode recorded.
== END 2024-09-27 15:52 | disposition home or self-care (01) ==
LOC: HO.MRI 15:51
PROVIDERS: PCP Student in an Organized Health Care Education/Training Program; Visit Provider Surgery
DX: R16.0 Hepatomegaly, not elsewhere classified (principal)
CPT/HCPCS: 74183; A9585

== ENCOUNTER → 2024-09-27 15:51 | Outpatient (BNV) | payer OTHER, SELFPAY | PROVIDERS: PCP Student in an Organized Health Care Education/Training Program; Visit Provider Radiology Diagnostic Radiology | DX: K76.89 Other specified diseases of liver (principal); K76.0 Fatty (change of) liver, not elsewhere classified; R16.2 Hepatomegaly with splenomegaly, not elsewhere classified; D18.03 Hemangioma of intra-abdominal structures | CPT/HCPCS: 74183 ==